=== PATIENT | female | born 1940 | race Caucasian/White ===

== ENCOUNTER 2020-02-05 13:40 | Inpatient (IN) | payer MEDICARE ==
[~2020-02-05] VITALS: Ht 157.5 cm; Wt 58.1 kg
--- NOTE | 2020-02-05 13:40 | NUR ---
PT [id number]+PD, BROUGHT IN FOR A 5150 UNDER GD. C/O DIZZINESS AND FEELING SICK PER PT. PT IS AAOX3, NOT IN RESPIRATORY DISTRESS, HOOKED TO WET PAN MIXER, KEPT RESTED AND COMFORTABLE. WILL CONTINUE TO MONITOR.
--- NOTE | 2020-02-05 14:00 | NUR ---
IV LINE ESTABLISHED BLOOD DRAWN AND SENT TO LAB.
--- NOTE | 2020-02-05 14:05 | NUR ---
AT BEDSIDE FOR EVAL.
--- NOTE | 2020-02-05 14:28 | NUR ---
COVID SPECIMEN OBTAINED AND SENT TO LAB
[2020-02-05] MEDS ORDERED: IV NS 0.9% 1,000 ML BAG IV ONE (14:30)
--- NOTE | 2020-02-05 14:37 | NUR ---
[facility] ADMINISTRATOR AT BEDSIDE FOR XRAY.
[2020-02-05 15:02] LABS: SERUM AMMONIA < 10 umol/L (11-32)
[2020-02-05 15:08] LABS: BASOPHILS # (AUTO) 0.1 /CMM (0.0-0.2); BASOPHILS % (AUTO) 1.4 % (0.0-2.0); EOSINOPHILS % (AUTO) 1.3 % (0.0-6.0); LYMPHOCYTES # (AUTO) 1.2 /CMM (0.8-4.8); LYMPHOCYTES % (AUTO) 12.2 % (20.0-44.0); MEAN CORPUSCULAR HGB CONC 24 g/dl (31.0-36.0); MEAN CORPUSCULAR VOLUME 50 fL (82-100); MONOCYTES # (AUTO) 0.6 /CMM (0.1-1.30); MONOCYTES % (AUTO) 6.2 % (2.0-12.0); NEUTROPHILS # (AUTO) 7.5 /CMM (1.8-8.9); NEUTROPHILS % (AUTO) 78.9 % (43.0-81.0); PLATELET COUNT (AUTO) 586 /CMM (150-450); RED BLOOD CELL COUNT(AUTO) 3.67 MIL/uL (4.0-5.2); WHITE BLOOD COUNT (AUTO) 9.5 K/uL (4.3-11.0)
--- NOTE | 2020-02-05 15:08 | NUR ---
LAB CALLED LACTIC ACID 2.0 DR. MUÑOZ AWARE.
[2020-02-05 15:10] LABS: HEMOGLOBIN 4.5 g/dL (11.5-14.8)
--- NOTE | 2020-02-05 15:10 | NUR ---
LAB CALLED H&H 4.[address] MUÑOZ AWARE.
[2020-02-05 15:11] LABS: ALANINE AMINOTRANSFERASE 15 U/L (12-78); ALBUMIN 3.3 g/dL (3.4-5.0); ALCOHOL, BLOOD 4 mg/dL (0-0); ALKALINE PHOSPHATASE 67 U/L (46-116); ASPARTATE AMINOTRANSFERASE 11 U/L (15-37); BILIRUBIN,DIRECT 0.2 mg/dL (0.0-0.2); BILIRUBIN,TOTAL 0.7 mg/dL (0.2-1.0); CALCIUM, SERUM 9.2 mg/dL (8.5-10.1); CARBON DIOXIDE 24 mmol/L (21-32); CHLORIDE 100 mmol/L (98-107); CREATININE 0.7 mg/dL (0.6-1.3); GLUCOSE 219 mg/dL (74-106); HEMATOCRIT 19 % (33-45); POTASSIUM 3.1 mmol/L (3.5-5.1); SODIUM SERUM 138 mmol/L (136-145); TOTAL PROTEIN, SERUM 7.3 g/dL (6.4-8.2); UREA NITROGEN, BLOOD 15 mg/dL (7-18)
--- NOTE | 2020-02-05 15:12 | NUR ---
PT IS BACK FROM THE CT SCAN.
[2020-02-05 15:15] LABS: ACETAMINOPHEN 0 ug/ml (10-30)
[2020-02-05 15:55] LABS: BILIRUBIN,URINE MODERATE (NEGATIVE); BLOOD, URINE NEGATIVE Ery/uL (NEGATIVE); LEUKOCYTE ESTERASE ,URINE LARGE (NEGATIVE); NITRITE, URINE NEGATIVE (NEGATIVE); PROTEIN,URINE TRACE mg/dl (NEGATIVE); UGLUCOSE NEGATIVE (NEGATIVE)
[2020-02-05 15:59] LABS: COLOR,URINE AMBER (YELLOW)
[2020-02-05 16:01] LABS: THYROID STIMULATING HORMONE 9.255 uIU/mL (0.358-3.74)
[2020-02-05 16:01] LABS: BACTERIA,URINE 1+ /HPF (None Seen); HYALINE CASTS, URINE Few /LPF (None Seen); SQUAMOUS EPITHELIAL CELL,UR Few /HPF (None Seen); WBC,URINE 51-80 /HPF (0-3)
[2020-02-05 16:18] LABS: BAND % (MANUAL) 1 % (0.0-5.0); NEUTROPHILS % (MANUAL) 83 (42-76)
[2020-02-05 16:19] LABS: EOSINOPHILS % (MANUAL) 1 % (0-4); LYMPHOCYTES % (MANUAL) 10 % (16-48); MONOCYTES % (MANUAL) 5 % (0-11.0)
[2020-02-05] MEDS ORDERED: CEFTRIAXONE 1GM BAG (ER ONLY) 1 GM/50 ML PIGGYBACK IV ONE (16:30)
--- NOTE | 2020-02-05 17:47 | NUR ---
CHECKING ON COVID-19 SINCE 1412 LAB SAYS 15-30 MINS.
--- NOTE | 2020-02-05 18:11 | NUR ---
LAB CALLED PT COVID RESULT (-) NEGATIVE.
--- NOTE | 2020-02-05 20:00 | NUR ---
1 unit prbc started @1999; verified with 2rn. see transfusion sheet
--- NOTE | 2020-02-05 20:01 | NUR ---
BLOOD TRANSFUSION STARTED 1999 vs/ 160/75 hr 99 r16 t97.9
--- NOTE | 2020-02-05 20:16 | NUR ---
2nd VS q15 @2015: vs 155/78 hr 87 rr18 t98.2
--- NOTE | 2020-02-05 20:17 | NUR ---
DR. MUÑOZ SPEAKING WITH DR. RINCON REGARDING ADMISSION
--- NOTE | 2020-02-05 20:35 | NUR ---
report given to padmini ceballos for lavelle
[2020-02-05 20:40] VITALS: BP 129/69
--- NOTE | 2020-02-05 20:40 | NUR ---
LAYOUT MANASSEMBLER MOTOR VEHICLE NOTES RECEIVED FROM ER VIA VALERI THIS 79 YO,ALERT,ORIENTED X2-3,FORGETFUL,ALTERED,LIVES ALONE TO HER HOME.SHE WAS BROUGHT BY [employer] TO ER NEIGHBOR DONT SEE HER FOR SEVERAL DAYS,FOUND TO HER PLACE ALTERED,BAREFOOT,LOOKING FOR HER MISSING CAR,NOT ABLE TO RECALL MONTH,[employer] ALSO FOUND ROTTEN FOOD INSIDE [place] AND FLIES.HE WAS EVALUATED BY SMART [employer] CRISIS TEAM AND PUT HER ON 5150 HOLD.APPEARS ALTERED,WITH DIAGNOSIS OF UTI AND ANEMIA WITH H/H OF 4.5/19,PRBC STARTED IN ER AT 1999 BY KOSTAS GARCIA,COMPUTER DOCUMENTATION NOT DONE,CONSENT FOR BLOOD TRANSFUSION SIGNED BY DR Bayron MUÑOZ,PATIENT UNABLE TO SIGN DUE TO MENTAL STATUS. SHE WAS GIVEN ROCEPHIN 1 GM IV IN ER DUE TO UTI.SALINE LOCK RIGHT AC INTACT AND PATENT.SITTER AT BEDSIDE FOR 5150 HOLD.CALL LIGHT IN REACH,NEEDS ANTICIPATED.
[2020-02-05 20:45] VITALS: BP 129/69
[2020-02-05] MEDS: CEFTRIAXONE 1 G in IV D5W 50 ML IV SCH (21:29)
[2020-02-05 21:30] VITALS: BP 135/61
[2020-02-05] MEDS ORDERED: ONDANSETRON HCL/PF 4 MG/2 ML VIAL IVP PRN (21:30)
[2020-02-05] MEDS ORDERED: IV NS 0.9% 1,000 ML IV PRN (21:30)
[2020-02-05] MEDS ORDERED: CLONIDINE HCL 0.1 MG TABLET PO PRN (21:30)
[2020-02-05] MEDS ORDERED: HYDROCODONE/APAP 5/325MG TABLET PO PRN (21:30)
[2020-02-05] MEDS ORDERED: MAGNESIUM HYDROXIDE 30 ML UDC PO PRN (21:30)
[2020-02-05] MEDS ORDERED: MAG HYDROX/AL HYDROX/SIMETH 30 ML UDC PO PRN (21:30)
[2020-02-05] MEDS ORDERED: POTASSIUM CHLORIDE 20 MEQ TAB.PRT.SR PO ONE (21:30)
[2020-02-05] MEDS ORDERED: ACETAMINOPHEN 325 MG TABLET PO PRN (21:30)
[2020-02-05] MEDS ORDERED: Z GUARD REMEDY 2 OZ OINT TP PRN (21:30)
[2020-02-05 22:30] VITALS: BP 131/65
--- NOTE | 2020-02-05 22:30 | NUR ---
LENS BLOCKER NOTES BLOOD TRANSFUSION COMPLETED,NO ADVERSE REACTIONS NOTED,NS FLUSHING IN PROGRESS.
--- NOTE | 2020-02-05 22:45 | NUR ---
PLASMA CENTER NURSE NOTES DR RINCON AT BEDSIDE TO EVALUATE PATIENT.
--- NOTE | 2020-02-05 23:07 | NUR ---
PEPE RODRIGUEZ POTASSIUM LEVEL 0F 3.2,REPLACED WITH K-DUR 80 MG PO ORDERED. Addendum: 02/06/20 at 0130 by VESNA MATA RN K LEVEL 3.1
--- NOTE | 2020-02-05 23:15 | NUR ---
HAND TUBE BENDER NOTES STARTED ON NS AT 75ML/HR RATE ORDERED
[2020-02-06] VITALS (12 sets, daily range): BP systolic 147–160; BP diastolic 50–78
[2020-02-06 06:04] LABS: BASOPHILS # (AUTO) 0.1 /CMM (0.0-0.2); BASOPHILS % (AUTO) 1.6 % (0.0-2.0); EOSINOPHILS % (AUTO) 2.7 % (0.0-6.0); HEMATOCRIT 21 % (33-45); LYMPHOCYTES # (AUTO) 1.2 /CMM (0.8-4.8); LYMPHOCYTES % (AUTO) 18.4 % (20.0-44.0); MEAN CORPUSCULAR HGB CONC 26 g/dl (31.0-36.0); MEAN CORPUSCULAR VOLUME 56 fL (82-100); MONOCYTES # (AUTO) 0.5 /CMM (0.1-1.30); NEUTROPHILS # (AUTO) 4.5 /CMM (1.8-8.9); NEUTROPHILS % (AUTO) 69.3 % (43.0-81.0); PLATELET COUNT (AUTO) 518 /CMM (150-450); RED BLOOD CELL COUNT(AUTO) 3.74 MIL/uL (4.0-5.2); WHITE BLOOD COUNT (AUTO) 6.5 K/uL (4.3-11.0)
[2020-02-06 06:08] LABS: TOTAL IRON BINDING CAPACITY 393 ug/dl (250-450)
[2020-02-06 06:10] LABS: HEMOGLOBIN 5.4 g/dL (11.5-14.8)
[2020-02-06 06:21] LABS: CALCIUM, SERUM 8.3 mg/dL (8.5-10.1); CARBON DIOXIDE 25 mmol/L (21-32); CHLORIDE 107 mmol/L (98-107); CREATININE 0.6 mg/dL (0.6-1.3); GLUCOSE 263 mg/dL (74-106); PHOSPHORUS 1.7 mg/dL (2.5-4.9); SODIUM SERUM 141 mmol/L (136-145); UREA NITROGEN, BLOOD 10 mg/dL (7-18)
[2020-02-06 06:24] LABS: IRON, SERUM 10 ug/dl (50-175)
--- NOTE | 2020-02-06 06:31 | NUR ---
CAN SLIDER NOTES REFUSED IVF THIS TIME,SHE SAID I'VE BEEN DRINKING WATER THRU OUT THE NIGHT.AMBULATES TO THE RESTROOM ASSISTED BY SITTER.STILL VERBALIZING ,SHE WANTS TO GO HOME.CALL LIGHT IN REACH,NEEDS ATTENDED.WILL ENDORSE TO DAY NURSE FOR SUSANNE.
--- NOTE | 2020-02-06 06:55 | NUR ---
DESIGN DRAFTER NOTES MORNING H/H 5.06/24,DR RINCON MADE AWARE,WITH ORDER TO TRANSFUSE ANOTHER 2 UNITS OF PRBC.CHARGE NURSE MADE AWARE,ASHISH RN NURSE ASSIGNED THIS MORNING MADE AWARE.
[2020-02-06] MEDS: PANTOPRAZOLE 40 MG TABLET.DR PO SCH (07:30)
--- NOTE | 2020-02-06 08:00 | NUR ---
RN OPENING NOTE Patient is on 5150 hold for GD; sitter at the bedside. Patient is resting in bed, a/ox2-3 with periods of confusion. Showing no signs of acute distress or SOB, stable on RA. IV line in the RAC#20g is clean and intact flushing well. Patient is able to ambulate with stand-by assist to bathroom. Bed is in lowest position, side rails x2 in upright position, call light is within reach, fall safety and aspiration precautions enforced. Will continue with plan of care.
[2020-02-06 08:34] LABS: BAND % (MANUAL) 1 % (0.0-5.0); EOSINOPHILS % (MANUAL) 5 % (0-4); LYMPHOCYTES % (MANUAL) 15 % (16-48); MONOCYTES % (MANUAL) 5 % (0-11.0); NEUTROPHILS % (MANUAL) 74 (42-76)
[2020-02-06] MEDS ORDERED: K PHOS NEUTRAL 250 MG TABLET PO ONE (14:00)
[2020-02-06] MEDS: SOD FERRIC GLUC 125 MG in IV NS 0.9% 100 ML IV SCH (14:53)
--- NOTE | 2020-02-06 15:17 | NUR ---
EFE spoke with KOSTAS Coleman regarding patient's 5150 status. EFE asked KOSTAS Coleman to sumbit a psych consult order as patient is on a 5150 hold. EFE will also follow-up with GPS to ensure contracts attorney psychiatrist Dr. Temple assesses the patient.
--- NOTE | 2020-02-06 16:30 | NUR ---
SW met with the patient at bedside. Patient is a 79 year-old female. Patient reports living alone and patient reports a neighbor called because they were concerned. Patient presented to [facility] for altered mental status and was placed on a 5150 hold. Patient reports that her sister and [id number] live in [place] and have their own medical issues. Patient reports that this experience has been difficult for her. Patient reports that she has not had a mental health diagnosis. Patient denies SI and HI. Patient denies auditory and visual hallucinations. Patient was calm and cooperative during this assessment. Patient made appropriate direct eye contact.
--- NOTE | 2020-02-06 16:30 | NUR ---
patient is currently on 5150 hold due to grave disability/unable to care for self. She lives alone, was ambulatory prior to admission,has no DME or homehealth reported. Current dc plan is geropsyche placement once medically clear. Addendum: 02/06/20 at 1630 by CRISTHIAN SALMON RN Amended: Links added.
--- NOTE | 2020-02-06 17:50 | NUR ---
RN NOTES Patient is stable, alert and oriented x 2-3. No signs of transfusion reaction. Will continue to monitor.
--- NOTE | 2020-02-06 19:35 | NUR ---
SENIOR PRODUCT DEVELOPMENT ENGINEER NOTES RECEIVED SITTING ON EDGE OF BED,FIRST UNIT OF PRBC COMPLETED,NO BLOOD TRANSFUSION REACTION NOTED.NS FLUSHING IN PROGRESS.WILL CONTINUE TO MONITOR.
--- NOTE | 2020-02-06 19:55 | NUR ---
RN CLOSING NOTE Patient is on 5150 hold for GD; sitter at the bedside. Patient is resting in bed, a/ox2-3 with periods of confusion. Showing no signs of acute distress or SOB, stable on RA. IV line in the LAC#20g is clean and intact flushing well. S/P 1 UNIT PRBC, no s/sx of transfusion reaction, VS remain stable. Ordered 1 more unit of PRBC to be given during the manufacturing electrician per MD order. All patient needs met, all due medications given, patient kept clean and dry throughout shift. Bed is in lowest position, side rails x2 in upright position, call light is within reach, fall safety and aspiration precautions enforced. Will endorse to manufacturing electrician for SUSANNE.
--- NOTE | 2020-02-06 20:01 | NUR ---
FENCE MANUFACTURE SUPERVISOR NOTES SITTER AT BEDSIDE,PATIENT ON 5150 HOLD
[2020-02-06] MEDS: CEFTRIAXONE 1 G in IV D5W 50 ML IV SCH (20:59)
[2020-02-06] MEDS ORDERED: TRAZODONE 50 MG TABLET PO SCH (22:00)
--- NOTE | 2020-02-06 23:26 | NUR ---
CLIENT SUPPORT REPRESENTATIVE NOTES BLOOD TRANSFUSION STARTED WITH PRBC 396ML.
[2020-02-07] VITALS (7 sets, daily range): BP systolic 144–156; BP diastolic 68–84
--- NOTE | 2020-02-07 02:20 | NUR ---
BIOFUELS PLANT MANAGER NOTES BLOOD TRANSFUSION COMPLETED WELL.NO ADVERSE REACTION NOTED,NS FLUSHING DONE
--- NOTE | 2020-02-07 02:30 | NUR ---
FRUIT CANNER NOTES IV SITE LEAKING,ASLINE LOCK REMOVED,PATIENT REFUSED TO HAVE NEW SALINE LOCK.
[2020-02-07 06:28] LABS: BASOPHILS # (AUTO) 0.2 /CMM (0.0-0.2); EOSINOPHILS % (AUTO) 5.4 % (0.0-6.0); HEMATOCRIT 29 % (33-45); HEMOGLOBIN 8.6 g/dL (11.5-14.8); LYMPHOCYTES # (AUTO) 1.8 /CMM (0.8-4.8); LYMPHOCYTES % (AUTO) 21.1 % (20.0-44.0); MEAN CORPUSCULAR HGB CONC 30 g/dl (31.0-36.0); MEAN CORPUSCULAR VOLUME 67 fL (82-100); MONOCYTES # (AUTO) 0.5 /CMM (0.1-1.30); MONOCYTES % (AUTO) 5.8 % (2.0-12.0); NEUTROPHILS # (AUTO) 5.5 /CMM (1.8-8.9); NEUTROPHILS % (AUTO) 65.7 % (43.0-81.0); PLATELET COUNT (AUTO) 519 /CMM (150-450); RED BLOOD CELL COUNT(AUTO) 4.38 MIL/uL (4.0-5.2); WHITE BLOOD COUNT (AUTO) 8.3 K/uL (4.3-11.0)
[2020-02-07 06:29] LABS: CALCIUM, SERUM 8.2 mg/dL (8.5-10.1); CARBON DIOXIDE 24 mmol/L (21-32); CHLORIDE 104 mmol/L (98-107); CREATININE 0.5 mg/dL (0.6-1.3); GLUCOSE 239 mg/dL (74-106); MAGNESIUM 1.8 mg/dL (1.8-2.4); PHOSPHORUS 2.3 mg/dL (2.5-4.9); POTASSIUM 3.3 mmol/L (3.5-5.1); SODIUM SERUM 140 mmol/L (136-145); UREA NITROGEN, BLOOD 6 mg/dL (7-18)
--- NOTE | 2020-02-07 06:31 | NUR ---
SUPERVISOR PLATE PASTING NOTED OFFERED TO PLACE NEW SALINE LOCK BUT REFUSED,SHE WANTS TO GO HOME.D/C PLAN TO GPS WHEN MEDICALLY CLEARED.WILL ENDORSE TO DAY NURSE FOR SUSANNE.
--- NOTE | 2020-02-07 07:30 | NUR ---
HEEL BLACKER OPENING NOTES Pt remains a/ox2-3 with periods of confusion. Showing no signs of acute distress or SOB, stable on RA. IV line in the RAC#20g is clean and intact flushing well. Patient is able to ambulate with stand-by assist to bathroom. Bed is in lowest position, side rails x2 in upright position, call light is within reach, fall safety and aspiration precautions enforced. Sitter at bedside for one on one monitoring. Will continue to monitor.
--- NOTE | 2020-02-07 07:30 | NUR ---
CLARIFICATION OF DOCUMENTATION: PT IV WAS PULLED OUT THIS AM. OFFERED TO INSERT ANOTHER IV LINE, BUT DECLINED.
[2020-02-07] MEDS: PANTOPRAZOLE 40 MG TABLET.DR PO SCH (08:37)
[2020-02-07] MEDS ORDERED: POTASSIUM CHLORIDE 20 MEQ TAB.PRT.SR PO SCH (11:00)
--- NOTE | 2020-02-07 13:35 | NUR ---
Assumed care: Received pt. awake in bed, interacting to the sitter, no distress and no agitation noted. Will continue to monitor for safety.
[2020-02-07] MEDS: SOD FERRIC GLUC 125 MG in IV NS 0.9% 100 ML IV SCH (14:00)
[2020-02-07] MEDS ORDERED: NEUTRA PHOS 1 POWD.PACKET PO ONE (14:00)
--- NOTE | 2020-02-07 14:11 | NUR ---
Pt. refused to IV insertion and refused Ferrlecit IV. Explained on the importance and pt. still refusing.
--- NOTE | 2020-02-07 16:16 | NUR ---
SW met with the patient at bedside. SW followed up regarding patient's discharge plan. Patient reported that she would like to return home and patient reported that her friend Kitty would be able to provide assistance regarding her care at home. Patient provided friend/neighbors contact information . Plan: SW to follow up with patient friend Kitty regarding patient's plan. SW remains available for all needs regarding this patient.
--- NOTE | 2020-02-07 16:18 | NUR ---
This SW spoke with neighbors friend Kitty . Kitty provided background information regarding patient's health history. Per Kitty, patient has been forgetful and Kitty made two separate welfare check. Per Kitty, this final welfare check resulted in a 5150 hold. Kitty reported that the patient's condition at home is unsafe and unsanitary at this time. Kitty reported growing concerns for the care of the patient. Kitty reported that Kitty would be comfortable for the patient to return home if she was provided with home health to ensure patient's health and safety. Kitty would like to be informed regarding patient's discharge plan. Kitty also provided patient's long-term friend Macie's contact information if patient is needed transportation for discharge. will provide this information to Dr. Temple.
--- NOTE | 2020-02-07 16:23 | NUR ---
EFE spoke with Dr. Temple regarding new concerns. Dr. Temple asked this SW to have RN follow up regarding new orders. EFE informed ambulatory service representative Jina for new orders from Dr. Temple. Addendum: 02/07/20 at 1625 by ANNIE WILKS This EFE was informed by Case Management team that the patient is agreeable to placement. EFE informed Dr. Temple regarding this new information. RN to follow-up with Dr. Temple.
--- NOTE | 2020-02-07 17:35 | NUR ---
Jaylen Delgadillo gave an order to D/c to SNF. Dr. Temple made aware of the discharge said ok for discharge to SNF and D/C hold.
--- NOTE | 2020-02-07 17:48 | NUR ---
Jaylen Delgadillo reconciled meds to continue at [facility].
--- NOTE | 2020-02-07 18:03 | NUR ---
Report given Emily over the facility.
--- NOTE | 2020-02-07 20:00 | NUR ---
RN NOTES: RECEIVED REPORT FROM KATHY KENYON. PT HAS NO IV ACCESS, SHE REFUSED IV INSERTION DESPITE PROVIDING EDUCATION.
--- NOTE | 2020-02-07 20:36 | NUR ---
DC NOTES: PT DC TO [facility]. PT A/O X2-3 PERIOD OF CONFUSION. PT RECEIVED WITH NO IV ACCESS SHE IS REFUSING FOR IV REINSERTION, AWARE. PT EDUCATED REGARDING IMPORTANCE OF IV REINSERTION. EDUCATION PROVIDED REGARDING ROCEPHIN ANTIBIOTIC THERAPY FOR UTI. DC PAPER WORKS SIGNED BY PT, REPORTS GIVEN BY DAY KOSTAS CHAVEZ TO KOSTAS [facility]DRIDGE [facility]. VS TAKEN AND RECORDED. INVENTORY OF BELONGINGS COMPLETED, SIGNED BY PT. ARMBAND REMOVED. ALL DC PAPER WORKS HANDED OVER TO EMT. PT LEFT THE UNIT VIA AMBULANCE, MEDICALLY CLEARED FOR DISCHARGE.
[2020-02-08] MEDS ORDERED: LEVOTHYROXINE SODIUM 25 MCG TABLET PO SCH (07:30)
--- NOTE | 2020-02-10 16:28 | NUR ---
EFE was contacted by Stacie WILKS regarding this patient. EFE Arobrittaa following up as patient was placed on a 5150 hold. Stacie wanted information regarding patient's discharge. EFE provided [facility] information for [facility] [address] [place] [address] as patient was discharged on 02/06. EFE remains available for all needs regarding this patient.
== END 2020-02-07 20:38 | DRG 689 ==
LOC: ER 13:53 → TELE 19:28
PROVIDERS: ADMIT Internal Medicine; ATTEND Nurse Practitioner Acute Care
DX: N39.0 Urinary tract infection, site not specified (principal); G93.41 Metabolic encephalopathy; E43 Unspecified severe protein-calorie malnutrition; D50.9 Iron deficiency anemia, unspecified; Z73.6 Limitation of activities due to disability; R73.9 Hyperglycemia, unspecified; R94.6 Abnormal results of thyroid function studies; E03.9 Hypothyroidism, unspecified; F06.30 Mood disorder due to known physiological condition, unspecified
CPT/HCPCS: 36415; 70450-TC; 71045-TC; 80048-TC; 80076-TC; 81001; 82140-TC; 82962-TC; 83540-TC; 83605-TC; 83735-TC; 84100-TC; 84439-TC; 84443-TC; 84484-TC; 85025-TC; 85730-TC; 86850-TC; 87040-TC; 87081-TC; 87086-TC; C9803; G0378; G0480; J0696; J2916; J7030; J7040; J7050; J7060; P9016-BL

== ENCOUNTER 2020-04-29 16:03 | Inpatient (IN) | payer MEDICARE, OTHER ==
[~2020-04-29] VITALS: Ht 165.1 cm; Wt 59.9 kg
[2020-04-29 16:46] LABS: MONOCYTES # (AUTO) 0.7 /CMM (0.1-1.30)
--- NOTE | 2020-04-29 16:51 | NUR ---
BETY FROM SNF TO ER BED 7. AAOX2. NOT IN RESP DISTRESS. BROUGHT IN FOR ABNORMAL LAB. HGB AND HCT REPORTED AT 5.06/25. PT APPEARS PALE. DENIES CP, SOB NOR DIZZYNESS. WAST AT THE BEDSIDE FOR EVAL. ORDERS RECEIVED, NOTED AND CARRIED OUT. IV LINE ESTABLISHED ON R WIRST 20G, BLOOD DRAWN AND GI0VEN TO ELECTRIC RAZOR MECHANIC. PT ON MONITOR.
[2020-04-29 16:54] LABS: BASOPHILS # (AUTO) 0.4 /CMM (0.0-0.2); EOSINOPHILS % (AUTO) 7.1 % (0.0-6.0); HEMATOCRIT 21 % (33-45); LYMPHOCYTES # (AUTO) 1.9 /CMM (0.8-4.8); LYMPHOCYTES % (AUTO) 25.1 % (20.0-44.0); MEAN CORPUSCULAR HGB CONC 27 g/dl (31.0-36.0); MEAN CORPUSCULAR VOLUME 54 fL (82-100); MONOCYTES % (AUTO) 9.2 % (2.0-12.0); NEUTROPHILS % (AUTO) 53.1 % (43.0-81.0); PLATELET COUNT (AUTO) 528 /CMM (150-450); RED BLOOD CELL COUNT(AUTO) 3.81 MIL/uL (4.0-5.2); WHITE BLOOD COUNT (AUTO) 7.5 K/uL (4.3-11.0)
--- NOTE | 2020-04-29 16:58 | NUR ---
ROOM 108 ASSIGNED
[2020-04-29 17:05] LABS: BASOPHILS % (AUTO) 5.5 % (0.0-2.0); HEMOGLOBIN 5.7 g/dL (11.5-14.8)
[2020-04-29 17:19] LABS: ALANINE AMINOTRANSFERASE 13 U/L (12-78); ALBUMIN 3.1 g/dL (3.4-5.0); ALKALINE PHOSPHATASE 73 U/L (46-116); ASPARTATE AMINOTRANSFERASE 8 U/L (15-37); BILIRUBIN,DIRECT 0.1 mg/dL (0.0-0.2); BILIRUBIN,TOTAL 0.3 mg/dL (0.2-1.0); CALCIUM, SERUM 8.5 mg/dL (8.5-10.1); CARBON DIOXIDE 26 mmol/L (21-32); CHLORIDE 99 mmol/L (98-107); CREATININE 0.6 mg/dL (0.6-1.3); POTASSIUM 4.1 mmol/L (3.5-5.1); SODIUM SERUM 135 mmol/L (136-145); TOTAL PROTEIN, SERUM 7.1 g/dL (6.4-8.2); UREA NITROGEN, BLOOD 18 mg/dL (7-18)
[2020-04-29 17:21] LABS: GLUCOSE 398 mg/dL (74-106)
--- NOTE | 2020-04-29 17:21 | NUR ---
LAB CALLED SUGAR IS 398 INFORMED
[2020-04-29 17:37] LABS: EOSINOPHILS % (MANUAL) 2 % (0-4); LYMPHOCYTES % (MANUAL) 25 % (16-48); MONOCYTES % (MANUAL) 9 % (0-11.0); NEUTROPHILS % (MANUAL) 64 (42-76)
[2020-04-29] MEDS ORDERED: MAGNESIUM HYDROXIDE 30 ML UDC PO PRN (18:30)
[2020-04-29] MEDS ORDERED: ONDANSETRON HCL/PF 4 MG/2 ML VIAL IVP PRN (18:30)
[2020-04-29] MEDS ORDERED: MAG HYDROX/AL HYDROX/SIMETH 30 ML UDC PO PRN (18:30)
[2020-04-29] MEDS ORDERED: ZOLPIDEM TARTRATE 5 MG TABLET PO PRN (18:30)
[2020-04-29] MEDS ORDERED: HYDROCODONE/APAP 5/325MG TABLET PO PRN (18:30)
[2020-04-29] MEDS ORDERED: Z GUARD REMEDY 2 OZ OINT TP PRN (18:30)
--- NOTE | 2020-04-29 18:30 | NUR ---
RN NOTE RECEIVED REPORT FROM RN DELANEY OVER PHONE. AWAITING ARRIVAL OF PATIENT FROM ER. IF NOT HERE BY END OF SHIFT WILL ENDORSE REPORT TO LACE PAPER MACHINE OPERATOR RN.
--- NOTE | 2020-04-29 18:32 | NUR ---
REPORT GIVEN TO SERENITY KENYON
--- NOTE | 2020-04-29 18:45 | NUR ---
BLOOD DTRANSFUSION STARTED.
--- NOTE | 2020-04-29 19:17 | NUR ---
PT TRANSPORTED WITH BLOOD TRANSFUSING.
--- NOTE | 2020-04-29 19:17 | NUR ---
PT TRANSPORTED TO UNIT ON GURNEY WITH EMT AND RN AT BEDSIDE W/ ACLS PROTOCOL. NAD NOTED DURING TRANSPORT.
--- NOTE | 2020-04-29 19:50 | NUR ---
RN Note Receive pt. from ER, w/ 1 Unit PRBC infusing.
[2020-04-29] MEDS: PANTOPRAZOLE 40 MG VIAL IV SCH (20:25)
[2020-04-29] MEDS: IV NS 0.9% 1,000 ML IV PRN (20:37)
--- NOTE | 2020-04-29 21:21 | NUR ---
Pt. last hgb 5.7, receiving 1 unit PRBC, self d/c IV access and got out of bed without using call light and standby assist. 80% blood transfusion completed. Shes refusing IV access, refusing care, wants to eat and be left alone tonight. Charge nurse notified, pt. reiterated the same to charge nurse. Provider Maria Del Carmen notified from [employer]. Order is to monitor pt., try an check BP as scheduled, keep bed alarm on, re-educate pt. to not to get up if shes feels dizzy or near syncope and update provider of changes.
--- NOTE | 2020-04-29 21:35 | NUR ---
Protonix and Continuos IV fluid was never administered due to lack of IV access.
[2020-04-29 22:00] VITALS: BP 159/59
--- NOTE | 2020-04-29 23:43 | NUR ---
RN Note Blood transfusion documented was received from ER on paper charting. See Pt. Chart for Transfusion completion documentation.
--- NOTE | 2020-04-29 23:45 | NUR ---
RN Note Pt. continues to get out of bed without using call light. Refuses to remain NPO, went to sink and drink water. Continuos to be uncooperative. Charge nurse notified, Call light within reach and bed alarm active.
--- NOTE | 2020-04-29 23:55 | NUR ---
CLINICAL STATISTICAL PROGRAMMER NOTES, ATTEMPTED TO EDUCATE PATIENT REGARDING THE IMPORTANCE OF START IV AND CONTINUE WITH MEDICAL CARE, AND SHE REPLIED "I'M TIRED OF BEING USED!" " I JUST CAN HANDLE THIS ANYMORE, LET ME SLEEP, I JUST WANT TO REST!!" ENCOURAGED PATIENT TO START IV, TO CONTINUE WITH IV FLUIDS AND POSSIBLE BLOOD TRANSFUSION, REMINDED THE PATIENT THAT SHE HAS CRITICAL HEMOGLOBIN, STILL REFUSED, ANGI CHAUHAN AWARE.
--- NOTE | 2020-04-29 23:58 | NUR ---
Rn Note Pt. refusing cardiac monitoring, states "its too sticky, I do not want it on me and that's final." Educated pt. on the importances of medical devices nad care that she is refusing. Pt. refuse pictures of her wounds to be taken.
[2020-04-30] VITALS: BP 128/54
--- NOTE | 2020-04-30 01:00 | NUR ---
INCOME TAX CONSULTANT NOTES, PATIENT NOT COMPLIANT WITH CARE, REFUSING TELE MONITOR AND WANTED TO EAT, INFORMED ED WHITLEY PATTERNMAKER METAL BENCH ON CALLED AND SHE REPLIED WITH ORDER TO CONTINUE NPO, AND FOLLOW UP TOMORROW WITH MD.
--- NOTE | 2020-04-30 01:00 | NUR ---
CIRCLE EDGER NOTES, INFORMED ANGI THAT PATIENT KEEP GETTIG UP FROM BED, REFUSING CARE, NON COMPLIANT WITH MD ORDERS, AND KEEP DRINKING WATER FROM SINK FAUCET, ANGI REPLIED WITH ORDER TO KEEP PATIENT IN BED SINCE SHES IS ANEMIC WITH CRITICAL AND PROVIDE 1:1 SITTER, NOTED AND CARRIED OUT.
[2020-04-30 04:00] VITALS: BP 145/77
--- NOTE | 2020-04-30 06:24 | NUR ---
RN Note pt. refused am labs.
--- NOTE | 2020-04-30 07:10 | NUR ---
RN OPENING NOTED RECEIVED PATIENT RESTING IN BED. IT WAS INFORMED PATIENT HAS BEEN NONCOMPLIANT WITH CARE AND HAS BEEN REFUSING IV'S. NO IV ACCESS IN PATIENT. PATIENT IS NPO STATUS. SAFETY PRECAUTIONS IMPLEMENTED, BED LOCKED IN LOWEST POSITION, SIDE RAILS UP X2, CALL LIGHT WITHIN REACH. WILL CONTINUE TO MONITOR AND PROVIDE CARE THROUGHOUT SHIFT.
[2020-04-30 08:00] VITALS: BP 139/61
[2020-04-30] MEDS ORDERED: CRAN3875 PO (08:12)
[2020-04-30] MEDS ORDERED: LEVO25TA7 PO (08:12)
[2020-04-30] MEDS ORDERED: ONDA4TAB11 PO (08:12)
[2020-04-30] MEDS ORDERED: MAG355OR18 PO (08:12)
[2020-04-30] MEDS ORDERED: DOCU-141 PO (08:12)
[2020-04-30] MEDS ORDERED: ACET325T53 PO (08:12)
[2020-04-30] MEDS ORDERED: CRAN425C6 PO (08:12)
[2020-04-30] MEDS ORDERED: HYDR-3973 PO (08:12)
[2020-04-30] MEDS ORDERED: PANT40TA49 PO (08:12)
[2020-04-30] MEDS ORDERED: CLON0.1T PO (08:12)
[2020-04-30 11:22] LABS: BASOPHILS # (AUTO) 0.2 /CMM (0.0-0.2); BASOPHILS % (AUTO) 3.1 % (0.0-2.0); EOSINOPHILS % (AUTO) 7.7 % (0.0-6.0); HEMATOCRIT 25 % (33-45); HEMOGLOBIN 7.3 g/dL (11.5-14.8); LYMPHOCYTES # (AUTO) 1.2 /CMM (0.8-4.8); LYMPHOCYTES % (AUTO) 19.9 % (20.0-44.0); MEAN CORPUSCULAR HGB CONC 29 g/dl (31.0-36.0); MEAN CORPUSCULAR VOLUME 60 fL (82-100); MONOCYTES # (AUTO) 0.5 /CMM (0.1-1.30); NEUTROPHILS # (AUTO) 3.6 /CMM (1.8-8.9); NEUTROPHILS % (AUTO) 61.3 % (43.0-81.0); PLATELET COUNT (AUTO) 467 /CMM (150-450); RED BLOOD CELL COUNT(AUTO) 4.13 MIL/uL (4.0-5.2); WHITE BLOOD COUNT (AUTO) 5.8 K/uL (4.3-11.0)
[2020-04-30 11:46] LABS: ALANINE AMINOTRANSFERASE 10 U/L (12-78); ALBUMIN 2.9 g/dL (3.4-5.0); ALKALINE PHOSPHATASE 69 U/L (46-116); ASPARTATE AMINOTRANSFERASE 10 U/L (15-37); BILIRUBIN,TOTAL 0.8 mg/dL (0.2-1.0); CALCIUM, SERUM 8.6 mg/dL (8.5-10.1); CARBON DIOXIDE 27 mmol/L (21-32); CHLORIDE 99 mmol/L (98-107); CREATININE 0.5 mg/dL (0.6-1.3); GLUCOSE 300 mg/dL (74-106); MAGNESIUM 1.6 mg/dL (1.8-2.4); PHOSPHORUS 3.9 mg/dL (2.5-4.9); POTASSIUM 3.5 mmol/L (3.5-5.1); SODIUM SERUM 137 mmol/L (136-145); TOTAL PROTEIN, SERUM 6.7 g/dL (6.4-8.2); UREA NITROGEN, BLOOD 11 mg/dL (7-18)
[2020-04-30 12:00] VITALS: BP 150/72
[2020-04-30 16:00] VITALS: BP 156/86
[2020-04-30] MEDS: PANTOPRAZOLE 40 MG VIAL IV SCH (16:03)
--- NOTE | 2020-04-30 19:31 | NUR ---
RN CLOSING NOTE PATIENT RESTING IN BED. PATIENT MIDLINE RIGHT UPPER ARM INTACT AND FLUSHING WELL. PATIENT NOW ON SOFT DIET PER MD ORDERS. SAFETY PRECAUTIONS IMPLEMENTED, BED LOCKED IN LOWEST POSITION, SIDE RAILS UP X2, CALL LIGHT WITHIN REACH. WILL ENDORSE CARE TO UPCOMING SHIFT.
[2020-04-30 20:00] VITALS: BP 158/57
--- NOTE | 2020-04-30 20:00 | NUR ---
RN OPENING NOTED RECEIVED PATIENT IN BED. A/OX3 AMBULATORY.PER ENDORSEMENT PTS IS NONCOMPLIANT WITH CARE AND TELE MONITOR . WITH RIGHT UPPER ARM MIDLINE GAUGE#18 INTACT AND PATENT . PATIENT IS ON SOFT DIET, SAFETY PRECAUTIONS IMPLEMENTED, BED LOCKED IN LOWEST POSITION, SIDE RAILS UP X2, CALL LIGHT WITHIN REACH. WILL CONTINUE TO MONITOR PTS.
--- NOTE | 2020-04-30 21:00 | NUR ---
television tube inspector notes Received a call from Dr Sales wanted to talk to pts ,told dr sales no behabior at this time in the bed cofortable .Dr sales spoke to the pts with nno at this time.
[2020-05-01] VITALS: BP 134/65
--- NOTE | 2020-05-01 | NUR ---
television camera operator notes Pts is npo status as ordered for egd today with Dr krause scheduled at 10am .Pts responsible green party unable to reach will follow up in am .will endorse to rn day shift to follow up ,preop checklist started .will endorse accordingly , pts maintained npo status.
--- NOTE | 2020-05-01 | NUR ---
manager telemarketing notes Pts is non compliant start explaining to her about the procedure for egd , pts keep on i dont want do it , consent is not sign no family to contact.left message with asad .
[2020-05-01 04:00] VITALS: BP 126/65
[2020-05-01 06:17] LABS: BASOPHILS # (AUTO) 0.2 /CMM (0.0-0.2); BASOPHILS % (AUTO) 2.6 % (0.0-2.0); HEMATOCRIT 25 % (33-45); HEMOGLOBIN 7.3 g/dL (11.5-14.8); LYMPHOCYTES # (AUTO) 2.1 /CMM (0.8-4.8); LYMPHOCYTES % (AUTO) 27.8 % (20.0-44.0); MEAN CORPUSCULAR HGB CONC 29 g/dl (31.0-36.0); MEAN CORPUSCULAR VOLUME 61 fL (82-100); MONOCYTES # (AUTO) 0.7 /CMM (0.1-1.30); MONOCYTES % (AUTO) 8.7 % (2.0-12.0); NEUTROPHILS % (AUTO) 52.9 % (43.0-81.0); PLATELET COUNT (AUTO) 483 /CMM (150-450); RED BLOOD CELL COUNT(AUTO) 4.16 MIL/uL (4.0-5.2); WHITE BLOOD COUNT (AUTO) 7.6 K/uL (4.3-11.0)
--- NOTE | 2020-05-01 07:15 | NUR ---
telecom coordinator notes endorsed to rn day shift to follow up consent. pts at this time is refusing for the procedure.
--- NOTE | 2020-05-01 07:20 | NUR ---
RN OPENING NOTE RECEIVED PATIENT RESTING IN BED. PATIENT ON ROOM AIR WITH NO COMPLAINTS OF SOB OR RESPIRATORY DISTRESS. PATIENT MIDLINE RIGHT UPPER ARM INTACT AND FLUSHING WELL. PATIENT NPO FOR POSSIBLE EDG TODAY. CONSENT STILL NEEDS TO BE OBTAINED. SAFETY PRECAUTIONS IMPLEMENTED, BED LOCKED IN LOWEST POSITION, SIDE RAILS UP X2, CALL LIGHT WITHIN REACH. WILL CONTINUE TO MONITOR PATIENT AND PROVIDE CARE THROUGHOUT SHIFT.
[2020-05-01 08:00] VITALS: BP 174/69
[2020-05-01] MEDS: PANTOPRAZOLE 40 MG VIAL IV SCH (09:56)
[2020-05-01 12:00] VITALS: BP 142/64
[2020-05-01] MEDS ORDERED: SOD FERRIC GLUC 125 MG in IV NS 0.9% 100 ML IV ONE (12:30)
[2020-05-01] MEDS ORDERED: SOD FERRIC GLUC 125 MG in IV NS 0.9% 100 ML IV SCH (14:00)
[2020-05-01 16:00] VITALS: BP 151/68
--- NOTE | 2020-05-01 18:57 | NUR ---
RN CLOSING NOTE PATIENT RESTING IN BED. PATIENT ON ROOM AIR WITH NO COMPLAINTS OF SOB OR RESPIRATORY DISTRESS. PATIENT MIDLINE RIGHT UPPER ARM INTACT AND FLUSHING WELL. PATIENT PLACED BACK ON SOFT DIET. EMERGENCY CONTACTS ARE [facility] MENT[facility]INICIANS THAT ARE NOT ABLE TO CONSENT FOR EDG. IT WAS INFORMED THAT THEY JUST FOLLOW PATIENT FOR MENTAL HEALTH SERVICES. PATIENT ALSO REFUSED EDG. MD AWARE. SAFETY PRECAUTIONS IMPLEMENTED, BED LOCKED IN LOWEST POSITION, SIDE RAILS UP X2, CALL LIGHT WITHIN REACH. WILL ENDORSE CARE TO UPCOMING SHIFT.
[2020-05-01 20:00] VITALS: BP 150/57
--- NOTE | 2020-05-01 20:00 | NUR ---
RN OPENING NOTED RECEIVED PATIENT IN BED. A/OX3 AMBULATORY.PTS IS NONCOMPLIANT WITH CARE . WITH RIGHT UPPER ARM MIDLINE GAUGE#18 INTACT AND PATENT PTS REFUSED IV FLUIDS BUT ABLE TO DRINK WATER WELL,. PATIENT IS ON SOFT DIET, SAFETY PRECAUTIONS IMPLEMENTED, BED LOCKED IN LOWEST POSITION, SIDE RAILS UP X2, CALL LIGHT WITHIN REACH. WILL CONTINUE TO MONITOR PTS.V/S STABLE AFEBRILE.PTS ON R/A NO SOB NO DISTRESS NOTED .
[2020-05-02 04:00] VITALS: BP 135/76
--- NOTE | 2020-05-02 06:28 | NUR ---
ms rn notes endorsed to rn day shift for continuity of care , Pts in bed stable v/s and comfortable in bed no c/o of pain .no sob no distress noted.
--- NOTE | 2020-05-02 07:30 | NUR ---
RN OPENING NOTES RECEIVED PT IN BED. A/O X2. ON ROOM AIR SATURATING @96%. NO SOB OR ANY RESPIRATORY DISTRESS. IV ACCESS AT SHERLEY MIDLINE INTACT, PATENT AND FLUSHED. NO PAIN REPORTED. SAFETY MEASURES IMPLEMENTED. CALL LIGHT WITHIN REACH. BED LOCKED AND IN LOWEST POSITION WITH SIDE RAILS UP X2. WILL CONTINUE TO MONITOR.
[2020-05-02 08:21] LABS: BASOPHILS # (AUTO) 0.2 /CMM (0.0-0.2); BASOPHILS % (AUTO) 2.3 % (0.0-2.0); EOSINOPHILS % (AUTO) 7.7 % (0.0-6.0); HEMATOCRIT 24 % (33-45); HEMOGLOBIN 7.2 g/dL (11.5-14.8); LYMPHOCYTES # (AUTO) 2.2 /CMM (0.8-4.8); MEAN CORPUSCULAR HGB CONC 30 g/dl (31.0-36.0); MEAN CORPUSCULAR VOLUME 59 fL (82-100); MONOCYTES # (AUTO) 0.7 /CMM (0.1-1.30); MONOCYTES % (AUTO) 8.5 % (2.0-12.0); NEUTROPHILS # (AUTO) 4.2 /CMM (1.8-8.9); NEUTROPHILS % (AUTO) 53.5 % (43.0-81.0); PLATELET COUNT (AUTO) 466 /CMM (150-450); RED BLOOD CELL COUNT(AUTO) 4.03 MIL/uL (4.0-5.2); WHITE BLOOD COUNT (AUTO) 7.9 K/uL (4.3-11.0)
[2020-05-02] MEDS: PANTOPRAZOLE 40 MG VIAL IV SCH (08:26)
[2020-05-02 12:00] VITALS: BP 116/62
[2020-05-02] MEDS ORDERED: Magnesium 1 GM/2 ML VIAL IV ONE (12:00)
[2020-05-02] MEDS ORDERED: MGSO4/D5W 100 ML IV SCH (12:30)
[2020-05-02] MEDS: SOD FERRIC GLUC 125 MG in IV NS 0.9% 100 ML IV SCH (14:00)
[2020-05-02 16:00] VITALS: BP 152/70
--- NOTE | 2020-05-02 17:01 | NUR ---
RN NOTES REFUSED FERRLECIT DESPITE EDUCATION X3.
--- NOTE | 2020-05-02 19:17 | NUR ---
RN CLOSING NOTES PT RESTING IN BED. A/O X2. ON ROOM AIR SATURATING @98%. NO SOB OR ANY RESPIRATORY DISTRESS. IV ACCESS AT SHERLEY MIDLINE INTACT, PATENT AND FLUSHED. NO PAIN REPORTED. NO SIGNIFICANT CHANGES THROUGHOUT THE SHIFT. SAFETY MEASURES IMPLEMENTED. CALL LIGHT WITHIN REACH. BED LOCKED AND IN LOWEST POSITION WITH SIDE RAILS UP X2. WILL ENDORSE TO NIGHT NURSE FOR SUSANNE.
--- NOTE | 2020-05-02 19:30 | NUR ---
PT RECEIVED IN BED. AOX3, JOHANSEN, RESPIRATIONS EVEN AND UNLABORED. DENIES PAIN AND DISCOMFORT. INFORMED OF NPO AFTER MIDNIGHT STATUS AND AM PROCEDURE. PT VERBALIZED UNDERSTANDING. ENCOURAGED TO CALL FOR ASSIST. CALL LIGHT WITHIN REACH.
[2020-05-02 20:00] VITALS: BP 149/54
[2020-05-03] VITALS (8 sets, daily range): BP systolic 114–162; BP diastolic 49–80
--- NOTE | 2020-05-03 05:06 | NUR ---
PT AOX2 AND CONFUSED AT TIMES. JOHANSEN AND AMBULATES TO THE BATHROOM.
--- NOTE | 2020-05-03 05:08 | NUR ---
PT AOX2-3,CONFUSED AT TIMES JOHANSEN, RESPIRATIONS EVEN AND UNLABORED. AMBULATES TO THE BATHROOM WITH A STEADY GAIT. STATES THAT " I HAVEN'T SEEN A DOCTOR SINCE I GOT HERE" WHEN ATTEMPTED TO INFORM AND ANSWER QUESTIONS REGARDING THE EGD THIS AM. REMAINED NPO AFTER MIDNIGHT. NO S/S OF BLEEDING NOTED. SAFTEY MAINTAINED. BED IN LOWEST LEVEL. ENCOURAGED TO CALL FOR ASSIST. CVALL Addendum: 05/03/20 at 0527 by TODD SYED RN CORRECTION: PT AOX2-3,CONFUSED AT TIMES JOHANSEN, RESPIRATIONS EVEN AND UNLABORED. AMBULATES TO THE BATHROOM WITH A STEADY GAIT. STATES THAT " I HAVEN'T SEEN A DOCTOR SINCE I GOT HERE" WHEN ATTEMPTED TO INFORM AND ANSWER QUESTIONS REGARDING THE EGD THIS AM. REMAINED NPO AFTER MIDNIGHT. NO S/S OF BLEEDING NOTED. SAFETY MAINTAINED. BED IN LOWEST LEVEL. ENCOURAGED TO CALL FOR ASSIST.
[2020-05-03 06:57] LABS: BASOPHILS # (AUTO) 0.1 /CMM (0.0-0.2); BASOPHILS % (AUTO) 2.2 % (0.0-2.0); EOSINOPHILS % (AUTO) 7.9 % (0.0-6.0); HEMATOCRIT 25 % (33-45); HEMOGLOBIN 7.2 g/dL (11.5-14.8); LYMPHOCYTES % (AUTO) 28.8 % (20.0-44.0); MEAN CORPUSCULAR HGB CONC 29 g/dl (31.0-36.0); MEAN CORPUSCULAR VOLUME 61 fL (82-100); MONOCYTES # (AUTO) 0.7 /CMM (0.1-1.30); MONOCYTES % (AUTO) 9.5 % (2.0-12.0); NEUTROPHILS # (AUTO) 3.5 /CMM (1.8-8.9); NEUTROPHILS % (AUTO) 51.6 % (43.0-81.0); PLATELET COUNT (AUTO) 440 /CMM (150-450); RED BLOOD CELL COUNT(AUTO) 4.13 MIL/uL (4.0-5.2); WHITE BLOOD COUNT (AUTO) 6.9 K/uL (4.3-11.0)
--- NOTE | 2020-05-03 07:30 | NUR ---
MED SURG OPENING NOTES Patient received in bed in good stable condition, NPO due to EGD scheduled. Patient noted with right upper arm midline with no s/s of skin infection. Bed is in lowest and locked position. Call light with in reach.
[2020-05-03] MEDS: PANTOPRAZOLE 40 MG VIAL IV SCH (08:52)
[2020-05-03 10:40] LABS: EOSINOPHILS % (MANUAL) 8 % (0-4); LYMPHOCYTES % (MANUAL) 30 % (16-48); MONOCYTES % (MANUAL) 5 % (0-11.0); NEUTROPHILS % (MANUAL) 57 (42-76)
[2020-05-03] MEDS ORDERED: ANESTHESIA TRAY IN PYXIS 1 EA TRAY MC ONE (14:30)
[2020-05-03] MEDS ORDERED: FENTANYL PF 100MCG/2ML AMPUL ONE (14:35)
[2020-05-03] MEDS: SOD FERRIC GLUC 125 MG in IV NS 0.9% 100 ML IV SCH (16:43)
--- NOTE | 2020-05-03 19:15 | NUR ---
PT RECEIVED IN BED AND APPEARS TO BE SLEEPING. RESPIRATIONS EVEN AND UNLABORED WITH NO S/S OF RESPIRATORY DISTRESS. CALL LIGHT WITHIN REACH AND BED IN LOWEST POSITION. WILL CONTINUE TO MONITOR.
--- NOTE | 2020-05-03 19:38 | NUR ---
MED SURG OPENING NOTES patient alert and oriented. Breathing even and unlabored.On room air with 02 sat 98%. Patient monitored for being post EGD. No c/o pain verbalized. Patient noted with right upper arm midline with no s/s of skin infection. Bed is in lowest and locked position. Call light with in reach.Endorsed to next shift for follow up. Addendum: 05/03/20 at 1939 by CARLOS MAKI RN KOSTAS CLOSING NOTES
[2020-05-04 04:00] VITALS: BP 128/53
--- NOTE | 2020-05-04 05:12 | NUR ---
PT AOX2-3 AND CONFUSED AT TIMES. PT IS COOPERATIVE ALLOWING IVF TO BE GIVEN AFTER ENCOURAGEMENT. SHERLEY MIDLINE IN INTACT AND INFUSING NS @75 ML/HR NO S/S OF BLEEDING. S/P EGD YESTERDAY.AMBULATES TO THE BATHROOM WITH A STEADY GAIT. RESPIRATIONS EVEN AND UNLABORED. NO S/S OF SOB OR DYSPNEA. DENIES PAIN AND DISCOMFORT. CALL LIGHT WITHIN REACH, ENCOURAGED TO CALL FOR ASSIST AND BED IN LOWERS POSITION.
--- NOTE | 2020-05-04 07:55 | NUR ---
RN OPENING NOTE PATIENT IS IN BED WITH HOB AT SEMI FOWLERS POSITION. PATIENT IS ON ROOM AIR WITH NO SIGNS OF LABORED BREATHING. PATIENT IS AOX3. SKIN IS INTACT. RHAND #18 IS PATENT, INTACT, AND HAS NO SIGNS OF INFILTRATION. BED IS LOCKED IN THE LOWEST POSITION, 3 GUARD RAILS RAISED, CALL NEVES WITHIN REACH, AND ALL HOSPITAL SAFETY PRECAUTIONS ARE BEING FOLLOWED. WILL CONTINUE TO MONITOR THROUGHOUT SHIFT.
[2020-05-04 08:00] VITALS: BP 119/51
[2020-05-04] MEDS: IV NS 0.9% 1,000 ML IV PRN ×2 (08:30)
[2020-05-04] MEDS: PANTOPRAZOLE 40 MG VIAL IV SCH (08:30)
[2020-05-04] MEDS: FAMOTIDINE (20 MG) 20 MG TABLET PO SCH ×2 (13:42→21:36)
[2020-05-04] MEDS: SOD FERRIC GLUC 125 MG in IV NS 0.9% 100 ML IV SCH (14:20)
[2020-05-04] MEDS: ACETAMINOPHEN 325 MG TABLET PO PRN ×2 (15:28→21:35)
--- NOTE | 2020-05-04 15:30 | NUR ---
LOSS PREVENTION/SAFETY DISTRICT MANAGER NOTE PATIENT HAS TEMP OF 100.4. ADMINISTERED 650 MG TYLENOL PO. WILL CONTINUE TO MONITOR.
[2020-05-04 16:00] VITALS: BP 159/60
--- NOTE | 2020-05-04 17:50 | NUR ---
FACILITIES MAINTENANCE ASSISTANT NOTE NOTIFIED PIZZA COOK AUBREY YATES OF TEMP OF 100.6, CHILLS, BP 110/42, HR IN 140s. ORDERED CBC, UA, BLOOD CULTURE, AND LACTIC ACID.
[2020-05-04 19:14] LABS: HEMOGLOBIN 7.9 g/dL (11.5-14.8)
--- NOTE | 2020-05-04 19:20 | NUR ---
RN NOTE RECEIVED PT IN BED, CONFUSED WITH VOMITUS ON GOWN AND BED. FEBRILE 102.7. COOLING MEASURES APPLIED. ON IVF NS RUNNING AT 75ML/HR. NO DISTRESS NOTED. DRIVE AWAY DRIVER ANGI MADE AWARE OF VOMITING EPISODE AND FEVER. NO SIGNIFICANT CHANGES ON LAB. WBC 6.9 AND LACTIC ACID 1.7. NO ORDER MADE AT THIS TIME, PER DRIVE AWAY DRIVER CONTINUE TO MONITOR.
[2020-05-04 19:21] LABS: BASOPHILS # (AUTO) 0.1 /CMM (0.0-0.2); BASOPHILS % (AUTO) 0.9 % (0.0-2.0); EOSINOPHILS % (AUTO) 0.9 % (0.0-6.0); HEMATOCRIT 27 % (33-45); LYMPHOCYTES # (AUTO) 0.2 /CMM (0.8-4.8); LYMPHOCYTES % (AUTO) 3.3 % (20.0-44.0); MEAN CORPUSCULAR HGB CONC 29 g/dl (31.0-36.0); MEAN CORPUSCULAR VOLUME 64 fL (82-100); MONOCYTES # (AUTO) 0.1 /CMM (0.1-1.30); MONOCYTES % (AUTO) 1.4 % (2.0-12.0); NEUTROPHILS # (AUTO) 6.4 /CMM (1.8-8.9); NEUTROPHILS % (AUTO) 93.5 % (43.0-81.0); PLATELET COUNT (AUTO) 376 /CMM (150-450); RED BLOOD CELL COUNT(AUTO) 4.17 MIL/uL (4.0-5.2); WHITE BLOOD COUNT (AUTO) 6.9 K/uL (4.3-11.0)
--- NOTE | 2020-05-04 19:21 | NUR ---
RN CLOSING NOTE PATIENT IS IN BED WITH HOB AT SEMI FOWLERS POSITION. PATIENT IS ON ROOM AIR WITH NO SIGNS OF LABORED BREATHING. PATIENT IS AOX2. SKIN IS INTACT. RHAND #18 IS PATENT, INTACT, AND HAS NO SIGNS OF INFILTRATION. BED IS LOCKED IN THE LOWEST POSITION, 3 GUARD RAILS RAISED, CALL NEVES WITHIN REACH, AND ALL HOSPITAL SAFETY PRECAUTIONS ARE BEING FOLLOWED. WILL ENDORSE TO PROFESSIONAL NURSING TUTOR RN. Addendum: 05/04/20 at 1939 by SERENITY CAMACHO RN *PATIENT IS AOX1
[2020-05-04 20:00] VITALS: BP 108/83
[2020-05-04 20:57] LABS: BAND % (MANUAL) 2 % (0.0-5.0); LYMPHOCYTES % (MANUAL) 5 % (16-48); MONOCYTES % (MANUAL) 2 % (0-11.0); NEUTROPHILS % (MANUAL) 91 (42-76)
--- NOTE | 2020-05-05 | NUR ---
RN NOTE BODY TEMP WENT DOWN TO 99.7
[2020-05-05] MEDS: IV NS 0.9% 1,000 ML IV PRN ×3 (00:01→16:13)
[2020-05-05 04:00] VITALS: BP 100/66
[2020-05-05 06:29] LABS: BASOPHILS # (AUTO) 0.1 /CMM (0.0-0.2); BASOPHILS % (AUTO) 0.8 % (0.0-2.0); HEMATOCRIT 22 % (33-45); LYMPHOCYTES # (AUTO) 0.3 /CMM (0.8-4.8); LYMPHOCYTES % (AUTO) 2.7 % (20.0-44.0); MEAN CORPUSCULAR HGB CONC 31 g/dl (31.0-36.0); MEAN CORPUSCULAR VOLUME 63 fL (82-100); MONOCYTES # (AUTO) 0.7 /CMM (0.1-1.30); MONOCYTES % (AUTO) 5.9 % (2.0-12.0); NEUTROPHILS # (AUTO) 10.2 /CMM (1.8-8.9); NEUTROPHILS % (AUTO) 90.6 % (43.0-81.0); PLATELET COUNT (AUTO) 272 /CMM (150-450); RED BLOOD CELL COUNT(AUTO) 3.56 MIL/uL (4.0-5.2); WHITE BLOOD COUNT (AUTO) 11.3 K/uL (4.3-11.0)
[2020-05-05 06:41] LABS: HEMOGLOBIN 6.8 g/dL (11.5-14.8)
--- NOTE | 2020-05-05 06:50 | NUR ---
RN NOTE RECEIVED CALL FROM LAB. PT HGB 6.8 HCT 22. PAGED GUEST SERVICES DIRECTOR ANGI. AWAITING FOR CALL BACK.
--- NOTE | 2020-05-05 07:00 | NUR ---
RN OPENING NOTE PT IN BED SEMI FOWLERS, A/Ox2, BREATHING ROOM AIR SPO2 95% WITH NO SIGNS OF SOB OR LABORED BREATHING. SKIN IS INTACT. SHERLEY MIDLINE RUNNING NS @ 75ML/HR, FLUSHED, PATENT, INTACT, WITH NO SIGNS OF INFECTION/INFILTRATION. PT H/H 6.10/25 (NO SIGNS OF ACTIVE BLEED NOTED), INFORMED CARDIOLOGY NURSE PRACTITIONER ANUSHA SAAVEDRA, AWAITING HIS ORDER, WILL F/U. ALL PT SAFETY PRECAUTIONS IN PLACE. WILL CONT TO MONITOR
--- NOTE | 2020-05-05 07:00 | NUR ---
RN NOTE PT REMAINS IN BED. NO ACUTE CHANGES NOTED. AFEBRILE AT THIS TIME. CONTINUE ON IVF OF NS. NO SIGNS OF INFILTRATION NOTED. NO NAUSEA AND VOMITING THE REST OF THE SHIFT. ALL SAFETY MEASURES MAINTAINED. ON FREQUENT VISUAL CHECKS. PT REFUSED TO GIVE URINE SAMPLE. TRIED MULTIPLE TIMES AND EXPLAINED TO PT. CRITICAL HBG ENDORSED TO NEXT SHIFT NURSE, NO RESPOND FROM MANAGING COGNITIVE ENGINEER YET. NO S/SX OF BLEEDING NOTED.
[2020-05-05 08:00] VITALS: BP 114/52
--- NOTE | 2020-05-05 08:30 | NUR ---
RN NOTE TEMP OF 99.4. COOLING MEASURES IN PLACE. WILL REASSESS SHORTLY
--- NOTE | 2020-05-05 09:30 | NUR ---
RN NOTE TEMP OF 98.9
[2020-05-05] MEDS: FAMOTIDINE (20 MG) 20 MG TABLET PO SCH ×2 (09:33→20:51)
[2020-05-05] MEDS: PANTOPRAZOLE 40 MG VIAL IV SCH (09:33)
[2020-05-05] MEDS ORDERED: CEFTRIAXONE 1 G in IV D5W 50 ML IV SCH (14:00)
[2020-05-05] MEDS: SOD FERRIC GLUC 125 MG in IV NS 0.9% 100 ML IV SCH (14:44)
[2020-05-05 16:00] VITALS: BP 151/79
[2020-05-05] MEDS: ACETAMINOPHEN 325 MG TABLET PO PRN (16:13)
[2020-05-05] MEDS ORDERED: ACETAMINOPHEN 650 MG/SUPP.RECT RC PRN (16:30)
--- NOTE | 2020-05-05 17:00 | NUR ---
RN NOTE PT TEMP OF 103 F, ADMINISTERED TYLENOL 650 RECTALLY AND COOLING MEASURES REINSTATED. WILL REASSESS SHORTLY
--- NOTE | 2020-05-05 18:00 | NUR ---
RN NOTE PT TEMP AT 102 NOW. COOLING MEASURES STILL IN PLACE
--- NOTE | 2020-05-05 18:45 | NUR ---
RN NOTE PER SPANISH TEACHER, CORWIN PALOMO, HOLD PRBC TRANSFUSION FOR NOW, NEED TO CONTROL FEVER FIRST Addendum: 05/05/20 at 1905 by ELEAZAR REIS RN PER CORWIN PALOMO, WENDY COOLING MEASURES FOR PT
--- NOTE | 2020-05-05 19:00 | NUR ---
RN CLOSING NOTE PT STILL HAS FEVER OF 101.0 F. COOLING MEASURES IN PLACE. HOLD PRBC TRANSFUSION UNTIL FEVER IS CONTROLLED. URINALYSIS AND FECAL OCCULT STOOL SAMPLE NEEDED, STRAIGHT CATH ORDER PLACED. PT ON RA, NO SIGNS OF RESP DISTRESS, SPO2 94% AND ABOVE THROUGHOUT SHIFT. ALL PT SAFETY PRECAUTIONS IN PLACE. WILL ENDORSE SUSANNE TO ONCOMING RN
[2020-05-05 20:00] VITALS: BP 102/40
--- NOTE | 2020-05-05 20:00 | NUR ---
RN OPENING NOTE, RECEIVED PATIENT IN BED, ASLEEP BUT AROUSES TO VERBAL STIMULI, ABLE TO IDENTIFY SELF AND DATE, FEBRILE WITH 101.0 F AT THIS TIME, COOLING MEASURES REPLACED, PER PRIOR NURSE HOLD BLOOD UNTIL AFEBRILE, ORDER GIVEN BY CORWIN PALOMO SALES REPRESENTATIVE METALS, NOTED WITH 89% O2, AND PLACED HER ON 2LPM VIA NC, 02 INCREASED TO 97%, NO SIGNS OF RESP DISTRESS, ALL PT SAFETY PRECAUTIONS IN PLACE, BED LOCKED AND LOW POSITION, WITH S/R X2 UP, CALL LIGHT W/I REACH, WILL CONTINUE TO MONITOR CLOSELY.
[2020-05-05] MEDS ORDERED: MEROPENEM 500 MG in IV NS 0.9% 50 ML IV SCH (21:30)
--- NOTE | 2020-05-05 22:00 | NUR ---
RN NOTES, URINE AND HAN COLLECTED, LAB AWARE. Addendum: 05/06/20 at 0343 by MATT ART RN URINE AND STOOL COLLECTED, LAB AWARE.
--- NOTE | 2020-05-05 22:48 | NUR ---
RN NOTES, INFORMED CORWIN PALOMO TRANSPORTATION SECURITY SCREENER THAT PATIENT AT THIS TIME AFEBRILE, AND PER HI TO ADMINISTER BLOOD, NOTED AND CARRIED OUT.
--- NOTE | 2020-05-05 23:00 | NUR ---
RN NOTES, INFORMED DR HERNANDEZ THAT PATIENT WITH SBP 70S, AND THAT WE ABOUT TO ADMINISTER BLOOD, PER MD NO NEW ORDERS BUT ADMINISTER THE BLOOD AND, WILL BE FINE, INFORM IF SBP DOES NOT IMPROVED, NOTED AND CARRIED OUT,
[2020-05-05 23:21] VITALS: BP 80/40
[2020-05-05 23:36] VITALS: BP 84/42
[2020-05-05] MEDS ORDERED: MEROPENEM 500 MG VIAL IV ONE (23:51)
[2020-05-06] VITALS (8 sets, daily range): BP systolic 87–134; BP diastolic 40–71
--- NOTE | 2020-05-06 | NUR ---
RN CLOSING NOTE, RECEIVED PATIENT IN BED, ASLEEP BUT AROUSES TO VERBAL STIMULI, ABLE TO IDENTIFY SELF AND DATE, FEBRILE WITH 101.0 F AT THIS TIME, COOLING MEASURES REPLACED, PER PRIOR NURSE HOLD BLOOD UNTIL AFEBRILE, ORDER GIVEN BY CORWIN PALOMO NP, NOTED WITH 89% O2, AND PLACED HER ON 2LPM VIA NC, 02 INCREASED TO 97%, NO SIGNS OF RESP DISTRESS, ALL PT SAFETY PRECAUTIONS IN PLACE, BED LOCKED AND LOW POSITION, WITH S/R X2 UP, CALL LIGHT W/I REACH, WILL CONTINUE TO MONITOR CLOSELY. Addendum: 05/06/20 at 0354 by MATT ART RN WRONG TIME
[2020-05-06] MEDS: MEROPENEM 500 MG in IV NS 0.9% 50 ML IV SCH ×2 (00:59→05:00)
--- NOTE | 2020-05-06 02:20 | NUR ---
RN NOTES, DONE WITH BLOOD INFUSION AT THIS TIME, PATIENT WITH SBP IN LOW 90S AT THIS TIME, WILL CONTINUE TO MONITOR CLOSELY, NO S/S OF ANY ADVERSE SIDE EFFECTS/REACTIONS.
[2020-05-06] MEDS: IV NS 0.9% 1,000 ML IV PRN (05:26)
[2020-05-06 06:03] LABS: BILIRUBIN,URINE NEGATIVE (NEGATIVE); COLOR,URINE YELLOW (YELLOW); LEUKOCYTE ESTERASE ,URINE NEGATIVE (NEGATIVE); NITRITE, URINE NEGATIVE (NEGATIVE); PROTEIN,URINE 30 mg/dl (NEGATIVE); UGLUCOSE >=1000 mg/dL (NEGATIVE); UROBILINOGEN,URINE 0.2 EU/dL (0.2)
[2020-05-06 06:17] LABS: BACTERIA,URINE Few /HPF (None Seen); RBC,URINE 0-2 /HPF (0-2); SQUAMOUS EPITHELIAL CELL,UR Few /HPF (None Seen)
[2020-05-06 06:19] LABS: OCCULT BLOOD STOOL NEGATIVE (NEGATIVE)
--- NOTE | 2020-05-06 06:30 | NUR ---
RN CLOSING NOTE, PATIENT IN BED, ASLEEP BUT AROUSES TO VERBAL STIMULI, AFEBRILE AT THIS TIME, NO SOB/ASCUTE DISTRESS BACK AT RA WITH O2 WNL, URINE AND STOOL COLLECTED, AFTER AFEBRILE AND WHEN ABOU TO ADMINISTER BLOOD SBP IN 70S, AFTER E ADMINISTRATION OF BLOOD SBP IMPROVED TO 90S AND THE LAST SBP LOW 100, ALL PT SAFETY PRECAUTIONS IN PLACE, BED LOCKED AND LOW POSITION, WITH S/R X2 UP, CALL LIGHT W/I REACH, WILL ENDORSE CONTINUITY OF CARE TO ONCOMING NURSE.
[2020-05-06 06:39] LABS: BASOPHILS # (AUTO) 0.1 /CMM (0.0-0.2); BASOPHILS % (AUTO) 0.2 % (0.0-2.0); HEMATOCRIT 26 % (33-45); HEMOGLOBIN 8.2 g/dL (11.5-14.8); LYMPHOCYTES % (AUTO) 4.5 % (20.0-44.0); MEAN CORPUSCULAR HGB CONC 32 g/dl (31.0-36.0); MEAN CORPUSCULAR VOLUME 70 fL (82-100); MONOCYTES # (AUTO) 1.1 /CMM (0.1-1.30); MONOCYTES % (AUTO) 4.9 % (2.0-12.0); NEUTROPHILS # (AUTO) 21.1 /CMM (1.8-8.9); NEUTROPHILS % (AUTO) 90.4 % (43.0-81.0); PLATELET COUNT (AUTO) 143 /CMM (150-450); RED BLOOD CELL COUNT(AUTO) 3.71 MIL/uL (4.0-5.2); WHITE BLOOD COUNT (AUTO) 23.3 K/uL (4.3-11.0)
[2020-05-06 06:58] LABS: CREATININE 0.9 mg/dL (0.6-1.3); MAGNESIUM 1.8 mg/dL (1.8-2.4); PHOSPHORUS 2.9 mg/dL (2.5-4.9)
[2020-05-06 07:07] LABS: POTASSIUM 2.5 mmol/L (3.5-5.1)
--- NOTE | 2020-05-06 07:30 | NUR ---
RN OPENING NOTE PT IN BED SEMI FOWLERS, A/Ox2, ON NC 3LPM SPO2 97% WITH NO SIGNS OF SOB OR LABORED BREATHING. NO FEVER. SKIN IS INTACT. SHERLEY MIDLINE RUNNING NS @ 75ML/HR, FLUSHED, PATENT, INTACT, WITH NO SIGNS OF INFECTION/INFILTRATION. PT H/H IMPROVED TO 8.2/26 AFTER 1 UNIT PRBC TRANSFUSED DURING COOK MESS 05/05 2300 (NO SIGNS OF ACTIVE BLEED NOTED). ALL PT SAFETY PRECAUTIONS IN PLACE. WILL CONT TO MONITOR
--- NOTE | 2020-05-06 07:41 | NUR ---
RN NOTE SPOKE WITH PHARMACY, OK TO NON-ADMIN 0500 MERREM D/T PRBC BEING INFUSED. INSTRUCTED TO ADMIN 0900 MERREM @ 33.3 ML/HR
--- NOTE | 2020-05-06 08:00 | NUR ---
RN NOTE INFORMED CORIWN PALOMO OF PT'S LOW POTASSIUM LEVEL OF 2.5, HIGH GLUCOSE 312, AND SMALL RT PNEUMOTHORAX. AWAITING ORDERS
[2020-05-06] MEDS: FAMOTIDINE (20 MG) 20 MG TABLET PO SCH ×2 (08:40→21:41)
[2020-05-06] MEDS: MEROPENEM 500 MG in IV NS 0.9% 100 ML IV SCH ×2 (08:40→21:57)
[2020-05-06] MEDS: PANTOPRAZOLE 40 MG VIAL IV SCH (08:40)
[2020-05-06] MEDS: POTASSIUM CL. PREMIX PERIPHER. 50 ML IV SCH ×8 (09:59→20:49)
[2020-05-06 11:23] LABS: BAND % (MANUAL) 2 % (0.0-5.0); LYMPHOCYTES % (MANUAL) 5 % (16-48); MONOCYTES % (MANUAL) 3 % (0-11.0); NEUTROPHILS % (MANUAL) 90 (42-76)
[2020-05-06] MEDS: SOD FERRIC GLUC 125 MG in IV NS 0.9% 100 ML IV SCH (14:22)
--- NOTE | 2020-05-06 19:00 | NUR ---
RN CLOSING NOTE NO CHANGES TO PT STATUS DURING SHIFT. NO SOB OR RESP DISTRESS. PT RECEIVED 6/8 KCL 10MEQ EACH, LAST 2 WILL BE GIVEN BY NIGHT RN. ALL PT SAFETY PRECAUTIONS IN PLACE. WILL ENDORSE SUSANNE TO ONCOMING RN
--- NOTE | 2020-05-06 20:00 | NUR ---
RN NOTE RECEIVED PT IN BED, A/O X2 PT IS ON 3 L VIA NC SATING 100%, NO S/S OF DISTRESS NOTED. PT HAS UNLABORED BREATHING. SAFETY MEASURES IN PLACE.
[2020-05-07] MEDS: IV NS 0.9% 1,000 ML IV PRN ×2 (00:02→14:04)
[2020-05-07 04:00] VITALS: BP 124/74
[2020-05-07 05:58] LABS: BASOPHILS # (AUTO) 0.1 /CMM (0.0-0.2); BASOPHILS % (AUTO) 0.3 % (0.0-2.0); EOSINOPHILS % (AUTO) 0.2 % (0.0-6.0); HEMATOCRIT 26 % (33-45); HEMOGLOBIN 8.1 g/dL (11.5-14.8); LYMPHOCYTES # (AUTO) 1.3 /CMM (0.8-4.8); LYMPHOCYTES % (AUTO) 6.4 % (20.0-44.0); MEAN CORPUSCULAR HGB CONC 32 g/dl (31.0-36.0); MEAN CORPUSCULAR VOLUME 66 fL (82-100); MONOCYTES # (AUTO) 0.9 /CMM (0.1-1.30); MONOCYTES % (AUTO) 4.4 % (2.0-12.0); NEUTROPHILS # (AUTO) 17.4 /CMM (1.8-8.9); NEUTROPHILS % (AUTO) 88.7 % (43.0-81.0); PLATELET COUNT (AUTO) 125 /CMM (150-450); RED BLOOD CELL COUNT(AUTO) 3.91 MIL/uL (4.0-5.2); WHITE BLOOD COUNT (AUTO) 19.7 K/uL (4.3-11.0)
[2020-05-07 06:17] LABS: ALBUMIN 2.2 g/dL (3.4-5.0); BAND % (MANUAL) 1 % (0.0-5.0); BILIRUBIN,DIRECT 0.2 mg/dL (0.0-0.2); BILIRUBIN,TOTAL 0.9 mg/dL (0.2-1.0); LYMPHOCYTES % (MANUAL) 1 % (16-48); MONOCYTES % (MANUAL) 5 % (0-11.0); NEUTROPHILS % (MANUAL) 93 (42-76); TOTAL PROTEIN, SERUM 6.1 g/dL (6.4-8.2)
[2020-05-07 06:32] LABS: THYROID STIMULATING HORMONE 6.658 uIU/mL (0.358-3.74)
--- NOTE | 2020-05-07 07:19 | NUR ---
RN NOTE REPORT GIVEN TO ONCOMING SHIFT FOR SUSANNE.
--- NOTE | 2020-05-07 07:20 | NUR ---
RN OPENING NOTES RECEIVED PT IN BED. A/O X2. ON 2L O2 VIA NC SATING @100%. NO SOB OR ANY S/S OF RESPIRATORY DISTRESS NOTED. AMBULATORY WITH ASSIST. SHERLEY MIDLINE INTACT AND PATENT. NS @75 ML/HR INFUSING WELL. NO PAIN REPORTED AT THIS TIME. SAFETY MEASURES IN PLACE. BED LOCKED AND AT LOWEST POSITION WITH SIDE RAILS UP X2. CALL LIGHT WITHIN REACH. BED ALARM ON. WILL CONTINUE TO MONITOR.
[2020-05-07] MEDS: PANTOPRAZOLE 40 MG VIAL IV SCH (08:26)
[2020-05-07] MEDS: FAMOTIDINE (20 MG) 20 MG TABLET PO SCH ×3 (08:26→21:02)
[2020-05-07] MEDS: MEROPENEM 500 MG in IV NS 0.9% 100 ML IV SCH ×2 (08:26→21:02)
[2020-05-07 09:38] LABS: CALCIUM, SERUM 8.5 mg/dL (8.5-10.1); CARBON DIOXIDE 22 mmol/L (21-32); CHLORIDE 106 mmol/L (98-107); CREATININE 0.5 mg/dL (0.6-1.3); GLUCOSE 260 mg/dL (74-106); POTASSIUM 3.9 mmol/L (3.5-5.1); SODIUM SERUM 139 mmol/L (136-145); UREA NITROGEN, BLOOD 20 mg/dL (7-18)
[2020-05-07 12:00] VITALS: BP 110/64
--- NOTE | 2020-05-07 18:39 | NUR ---
RN CLOSING NOTES NO SIGNIFICANT CHANGES THROUGHOUT SHIFT. VS STABLE. NOT IN DISTRESS. NO PAIN REPORTED AT THIS TIME. SAFETY MEASURES IN PLACE. CALL LIGHT WITHIN REACH. BED LOCKED AND AT LOWEST POSITION WITH SIDE RAILS UP X3. WILL ENDORSE TO NIGHT NURSE FOR SUSANNE.
--- NOTE | 2020-05-07 19:15 | NUR ---
ASSUMED CARE OF PATIENT. A/O X1 TO SELF. CURRENTLY ON ROOM AIR AND DOES NOT NOT APPEAR IN ANY DISTRESS AT THIS MOMENT. NO REPORTS OF PAIN. SHERLEY MIDLINE PATENT AND INFUSING NS @75ML/HR. SAFETY MEASURES IN PLACE. BED IN LOW POSITION AND LOCKED WITH SIDE RAILS UP X2. CALL LIGHT WITHIN REACH AND BED ALARM ON. WILL CONTINUE TO MONITOR.
[2020-05-07 20:00] VITALS: BP 146/66
[2020-05-08 04:00] VITALS: BP 160/84
[2020-05-08] MEDS: IV NS 0.9% 1,000 ML IV PRN ×2 (04:11→16:50)
[2020-05-08 06:12] LABS: BASOPHILS # (AUTO) 0.2 /CMM (0.0-0.2); BASOPHILS % (AUTO) 1.1 % (0.0-2.0); EOSINOPHILS % (AUTO) 0.7 % (0.0-6.0); HEMATOCRIT 25 % (33-45); HEMOGLOBIN 7.8 g/dL (11.5-14.8); LYMPHOCYTES # (AUTO) 1.4 /CMM (0.8-4.8); LYMPHOCYTES % (AUTO) 9.8 % (20.0-44.0); MEAN CORPUSCULAR HGB CONC 31 g/dl (31.0-36.0); MEAN CORPUSCULAR VOLUME 65 fL (82-100); MONOCYTES # (AUTO) 1.1 /CMM (0.1-1.30); NEUTROPHILS # (AUTO) 11.4 /CMM (1.8-8.9); NEUTROPHILS % (AUTO) 80.4 % (43.0-81.0); PLATELET COUNT (AUTO) 152 /CMM (150-450); RED BLOOD CELL COUNT(AUTO) 3.87 MIL/uL (4.0-5.2); WHITE BLOOD COUNT (AUTO) 14.2 K/uL (4.3-11.0)
[2020-05-08 06:17] LABS: CALCIUM, SERUM 8.3 mg/dL (8.5-10.1); CARBON DIOXIDE 25 mmol/L (21-32); CHLORIDE 106 mmol/L (98-107); CREATININE 0.4 mg/dL (0.6-1.3); GLUCOSE 204 mg/dL (74-106); MAGNESIUM 1.5 mg/dL (1.8-2.4); SODIUM SERUM 140 mmol/L (136-145); UREA NITROGEN, BLOOD 8 mg/dL (7-18)
--- NOTE | 2020-05-08 07:11 | NUR ---
No significant changes overnight. Patient not in any distress and no pain reported during this shift. Patient has been NPO since midnight for possible procedure today. Safety measures remain in place. Report given to KOSTAS Pedroza and labs reviewed.
--- NOTE | 2020-05-08 07:15 | NUR ---
RN OPENING NOTES RECEIVED PT IN BED. ON ROOM AIR SATING @94%. NO SOB OR ANY S/S OF RESPIRATORY DISTRESS NOTED. AMBULATORY WITH ASSIST. SHERLEY MIDLINE INTACT AND PATENT. NS @75 ML/HR INFUSING WELL. NO PAIN REPORTED AT THIS TIME. SAFETY MEASURES IN PLACE. BED LOCKED AND AT LOWEST POSITION WITH SIDE RAILS UP X2. CALL LIGHT WITHIN REACH. BED ALARM ON. WILL CONTINUE TO MONITOR.
[2020-05-08 08:00] LABS: BAND % (MANUAL) 1 % (0.0-5.0); LYMPHOCYTES % (MANUAL) 11 % (16-48); MONOCYTES % (MANUAL) 7 % (0-11.0); NEUTROPHILS % (MANUAL) 81 (42-76)
[2020-05-08 08:07] LABS: *ANA ANTI-CENTROMERE B AB <0.2 AI (0.0-0.9); *ANA ANTI-DNA(DS) AB, QN 1 IU/mL (0-9); *ANA ANTI-JO-1 <0.2 AI (0.0-0.9); *ANA ANTICHROMATIN ANTIBODY <0.2 AI (0.0-0.9); *ANA RNP ANTIBODIES 0.3 AI (0.0-0.9); *ANA SJOGREN'S ANTI-SS-A <0.2 AI (0.0-0.9); *ANA SJOGREN'S ANTI-SS-B <0.2 AI (0.0-0.9); *ANAANTI-SCLERODERMA-70 AB <0.2 AI (0.0-0.9); *ANASMITH AB <0.2 AI (0.0-0.9); *SPE A/G RATIO 0.8 (0.7-1.7); *SPE ALBUMIN 2.4 g/dL (2.9-4.4); *SPE ALPHA-1-GLOBULIN 0.4 g/dL (0.0-0.4); *SPE ALPHA-2-GLOBULIN 0.9 g/dL (0.4-1.0); *SPE GLOBULIN, TOTAL 3.1 g/dL (2.2-3.9); *SPE M-SPIKE Not Observed g/dL (Not Observed); *SPEGAMMA GLOBULIN 0.9 g/dL (0.4-1.8); IMMUNOGLOBULIN A, SERUM 269 mg/dL (64-422); IMMUNOGLOBULIN G, SERUM 912 mg/dL (586-1602); IMMUNOGLOBULIN M, SERUM 55 mg/dL (26-217)
[2020-05-08] MEDS: MEROPENEM 500 MG in IV NS 0.9% 100 ML IV SCH ×2 (09:04→21:19)
[2020-05-08] MEDS: PANTOPRAZOLE 40 MG VIAL IV SCH (09:04)
[2020-05-08] MEDS: FAMOTIDINE (20 MG) 20 MG TABLET PO SCH ×2 (09:05→21:19)
[2020-05-08] MEDS: Magnesium 1GM/D5W 100ML PREMIX 100 ML IV SCH ×2 (11:10→12:24)
[2020-05-08] MEDS: POTASSIUM CHLORIDE 20 MEQ TAB.PRT.SR PO SCH ×3 (11:10→13:41)
[2020-05-08 12:00] VITALS: BP 162/89
[2020-05-08 16:45] VITALS: BP 153/80
--- NOTE | 2020-05-08 16:50 | NUR ---
RN NOTES TRANSFERRED PT TO 3W ROOM 312 PER PROTOCOL. REPORT GIVEN TO KATIE KENYON FOR SUSANNE.
--- NOTE | 2020-05-08 17:00 | NUR ---
MS RN NOTES PATIENT RECEIVED IN BED, ALERT AND ORIENTED X 1, VERY FORGETFUL BUT ABLE TO REORIENT AND REDIRECT.ON ROOM AIR WITH NO SIGNS OF RESPIRATORY DISTRESS NOTED AT THIS TIME. PATIENT DENIES ANY PAIN OR DISCOMFORT AT THIS TIME. IV ACCESS INTACT AND PATENT ON RIGHT UPPER MIDLINE. SAFETY PRECAUTIONS IMPLEMENTED WITH BED LOCKED, BED ALARM ON, BILATERAL SIDE RAILS UP AND CALL LIGHT WITHIN EASY REACH OF PATIENT. WILL CONTINUE TO MONITOR PATIENT.
[2020-05-08] MEDS: ACETAMINOPHEN 325 MG TABLET PO PRN (17:17)
--- NOTE | 2020-05-08 18:34 | NUR ---
MS RN NOTES PATIENT IN BED RESTING COMFORTABLY, ALERT AND ORIENTED X 1, ABLE TO REORIENT AND REDIRECT PATIENT. ON ROOM AIR, DENIES SOB, WITH EVEN NON-LABORED BREATHING, AND NO RESPIRATORY DISTRESS NOTED AT THIS TIME. PATIENT DENIES PAIN AND DISCOMFORT AT THIS TIME. MET ALL OF PATIENTS NEEDS. SKIN KEPT CLEAN, WARM AND DRY TO TOUCH. IV ACCESS INTACT AND PATENT ON RIGHT UPPER ARM, CURRENTLY INFUSING 75ml/hr OF NORMAL SALINE. SAFETY PRECAUTIONS IMPLEMENTED WITH BED LOCKED, BILATERAL SIDE RAILS UP, BED ALARM ON, BED IN THE LOWEST POSITION, AND CALL LIGHT WITHIN EASY REACH. WILL ENDORSE PLAN OF CARE TO UPCOMING RN.
--- NOTE | 2020-05-08 19:15 | NUR ---
MS/RN OPENING NOTE RECEIVED PATIENT RESTING IN BED. ALERT AND ORIENTED TO SELF. ABLE TO MAKE NEEDS KNOWN. NO COMPLAINTS OF PAIN AT THIS TIME. CONTINUES ON ROOM AIR WITH NO SIGNS OR SYMPTOMS OF RESPIRATORY DISTRESS NOTED. SHERLEY MIDLINE IN PLACE - INTACT AND PATENT. CONTINUES ON IV ABX. CALL LIGHT WITHIN REACH. ASPIRATION, FALL AND SAFETY PRECAUTIONS MAINTAINED. WILL CONTINUE TO MONITOR.
[2020-05-08 20:00] VITALS: BP 154/80
--- NOTE | 2020-05-08 22:00 | NUR ---
MS/RN NOTE IV MERRUM STARTED AT 2128. IV SITE CLEAN, DRY AND INTACT WITH NO SIGNS OR SYMPTOMS OF PHLEBITIS OR INFILTRATION. AT APPROX. 2199 BELL STAFF NOTIFIED THIS RN THAT PATIENT WAS COMPLAINING OF PAIN TO IV SITE. THIS RN WENT INTO ROOM AND PATIENT HAD PULLED OUT HER MIDLINE STATING "I DONT NEED IT ANYMORE". EDUCATED PATIENT ON IMPORTANCE OF CONTINUING HER IV ABX. CHARGE NURSE IN AT THIS TIME TO ATTEMPT TO PLACE NEW IV. PATIENT REFUSING, WAVING ARMS AROUND, YELLING AT STAFF. CHARGE NURSE STATES SHE WOULD CHECK WITH PATIENT LATER TO SEE IF SHE WANTS IV. PATIENT STATES "I DONT WANT IT AT ALL". UNABLE TO COMPLETE IV ABX AT THIS TIME. WILL CONTINUE TO MONITOR. Addendum: 05/09/20 at 0732 by MITRA OCONNOR RN COMPLETED FULL DOSE OF ABX.
[2020-05-09] MEDS: ACETAMINOPHEN 325 MG TABLET PO PRN (02:10)
[2020-05-09 04:00] VITALS: BP 152/75
--- NOTE | 2020-05-09 06:15 | NUR ---
MS/RN CLOSING NOTE PATIENT CURRENTLY RESTING IN BED. AWAKE, ALERT AND ORIENTED X 1. ABLE TO MAKE NEEDS KNOWN. NO COMPLAINTS OF PAIN AT THIS TIME. PATIENT CONTINUING TO REFUSE IV ACCESS. WILL ENDORSE TO ONCOMING SHIFT. CONTINUES ON ROOM AIR WITH NO SIGNS OR SYMPTOMS OF RESPIRATORY DISTRESS NOTED. OLD IV SITE TO RIGHT ARM FREE OF REDNESS, SWELLING OR PAIN AT THIS TIME. CALL LIGHT WITHIN REACH. ASPIRATION, FALL AND SAFETY PRECAUTIONS MAINTAINED. WILL ENDORSE PLAN OF CARE TO ONCOMING SHIFT.
--- NOTE | 2020-05-09 07:30 | NUR ---
RECEIVED PT. IN AM ALERT AND ORIENTED X1-2.CONFUSED AND NEEDS CONSTANT SUPERVISION.
[2020-05-09 08:00] VITALS: BP 157/84
[2020-05-09] MEDS: FAMOTIDINE (20 MG) 20 MG TABLET PO SCH ×2 (09:07→21:30)
[2020-05-09 09:31] LABS: CALCIUM, SERUM 8.6 mg/dL (8.5-10.1); CREATININE 0.6 mg/dL (0.6-1.3); MAGNESIUM 1.8 mg/dL (1.8-2.4); POTASSIUM 3.3 mmol/L (3.5-5.1)
[2020-05-09 09:32] LABS: BASOPHILS # (AUTO) 0.1 /CMM (0.0-0.2); EOSINOPHILS % (AUTO) 1.3 % (0.0-6.0); HEMATOCRIT 30 % (33-45); HEMOGLOBIN 9.1 g/dL (11.5-14.8); LYMPHOCYTES # (AUTO) 1.3 /CMM (0.8-4.8); LYMPHOCYTES % (AUTO) 9.1 % (20.0-44.0); MEAN CORPUSCULAR HGB CONC 31 g/dl (31.0-36.0); MEAN CORPUSCULAR VOLUME 66 fL (82-100); MONOCYTES # (AUTO) 1.2 /CMM (0.1-1.30); MONOCYTES % (AUTO) 8.3 % (2.0-12.0); NEUTROPHILS # (AUTO) 11.5 /CMM (1.8-8.9); NEUTROPHILS % (AUTO) 80.3 % (43.0-81.0); PLATELET COUNT (AUTO) 221 /CMM (150-450); RED BLOOD CELL COUNT(AUTO) 4.48 MIL/uL (4.0-5.2); WHITE BLOOD COUNT (AUTO) 14.3 K/uL (4.3-11.0)
[2020-05-09] MEDS ORDERED: LORAZEPAM 1 MG TABLET PO PRN (10:30)
[2020-05-09] MEDS ORDERED: PEG 3350/NA SULF,BICARB,CL/KCL 4,000 ML BOTTLE PO ONE (11:00)
[2020-05-09] MEDS: LEVOTHYROXINE SODIUM 25 MCG TABLET PO SCH (11:33)
[2020-05-09 12:19] LABS: BAND % (MANUAL) 2 % (0.0-5.0); EOSINOPHILS % (MANUAL) 1 % (0-4); LYMPHOCYTES % (MANUAL) 14 % (16-48); MONOCYTES % (MANUAL) 7 % (0-11.0); NEUTROPHILS % (MANUAL) 76 (42-76)
--- NOTE | 2020-05-09 14:14 | NUR ---
given ativan in preparation of midline insertion.
--- NOTE | 2020-05-09 14:20 | NUR ---
#18 midline inserted by midline nurse,without difficulty.
--- NOTE | 2020-05-09 14:40 | NUR ---
rn in to rm. to find pt. had just removed midline catheter in lt. arm.dr rojas contacted as former iv site rt. upper arm with pinkish tinge to skin and swelling present. dr. rojas states he will order duplex study.
--- NOTE | 2020-05-09 14:41 | NUR ---
mittens applied and shortly after pt. removed mitten to rt. hand.
--- NOTE | 2020-05-09 14:42 | NUR ---
midline rn contacted and back again.reinserted another midline lt. arm.robert hung.now with wrist reatraints.
[2020-05-09] MEDS: MEROPENEM 500 MG in IV NS 0.9% 100 ML IV SCH ×2 (14:43→21:30)
[2020-05-09 16:00] VITALS: BP 185/90
--- NOTE | 2020-05-09 18:00 | NUR ---
DR. PALOMO INFORMED OF ELEVATED BP AND NEED FOR HIS ENTRY IN PROGRESS NOTES TO URGENT NEED FOR CT SCAN OF HEAD NO FAMILY TO SIGN CONSENT.ADDITIONALLY VENOUS DUPLEX ORDER CHANGEDTO STAT.NOT DONE YET
--- NOTE | 2020-05-09 19:55 | NUR ---
MS/RN OPENING NOTE RECEIVED PATIENT RESTING IN BED. AWAKE, ALERT AND ORIENTED X 1. YELLING OUT AT TIMES. CONTINUES WITH BILATERAL SOFT WRIST RESTRAINTS WITH NO SKIN INJURIES NOTED. IV TO LEFT UPPER ARM INTACT AND PATENT. CONTINUES ON IV ABX. CONTINUES WITH GOLYTLY PREP FOR COLONOSCOPY. CONTINUES ON CLEAR LIQUID DIET. NPO AFTER MIDNIGHT. NO COMPLAINTS OF PAIN AT THIS TIME. CALL LIGHT WITHIN REACH. ASPIRATION, FALL AND SAFETY PRECAUTIONS MAINTAINED. WILL CONTINUE TO MONITOR.
[2020-05-09 20:00] VITALS: BP 155/86
--- NOTE | 2020-05-09 22:30 | NUR ---
MS/RN NOTE ATTEMPTED TO HAVE PATIENT DRINK GOLYTELY MULTIPLE TIMES WITH PATIENT AGREEING AND THEN ONLY TAKING A FEW SIPS. PATIENT HAS ONLY COMPLETED 5 GLASSES OF GOLYTELY. NO BM'S AT THIS TIME. REEDUCATED PATIENT ON IMPORTANCE OF FINISHING COLONOSCOPY PREP WITH PATIENT STATING "I KNOW BUT I DONT WANT TO DRINK ANYMORE RIGHT NOW!" WILL CONTINUE TO MONITOR .
--- NOTE | 2020-05-10 | NUR ---
MS/RN NOTE PATIENT ONLY COMPLETED A TOTAL OF 6 GLASSES OF GOLYTELY DUE TO PATIENT REFUSING. NO BM'S NOTED THIS SHIFT. PT IS NPO AT THIS TIME. WILL ENDORSE TO ONCOMING SHIFT.
[2020-05-10] MEDS ORDERED: LORAZEPAM 1 MG TABLET PO PRN (01:40)
--- NOTE | 2020-05-10 01:40 | NUR ---
MS/RN NOTE PATIENT WITH INCREASED AGITATION, CONTINUOUSLY YELLING OUT. CONTINUES IN BILATERAL SOFT WRIST RESTRAINTS. DISTRICT REPRESENTATIVE MD HERNANDEZ CONTACTED WITH NEW ORDER FOR ATIVAN 1MG ONE TIME. ORDERS RECEIVED AND CARRIED OUT. WILL CONTINUE TO MONITOR.
[2020-05-10 04:00] VITALS: BP 150/80
[2020-05-10] MEDS: IV NS 0.9% 1,000 ML IV PRN (07:01)
[2020-05-10] MEDS: LEVOTHYROXINE SODIUM 25 MCG TABLET PO SCH (07:30)
--- NOTE | 2020-05-10 07:30 | NUR ---
MS/RN CLOSING NOTE PATIENT CURRENTLY RESTING IN BED. AWAKE, ALERT AND ORIENTED X 1-2. ABLE TO MAKE NEEDS KNOWN. NO COMPLAINTS OF PAIN AT THIS TIME. IV TO BING INTACT AND PATENT. CONTINUES ON BILATERAL WRIST RESTRAINTS WITH NO SIGNS OR SYMPTOMS OF SKIN INJURIES NOTED. RIGHT UPPER ARM REMAINS SWOLLEN AND SLIGHTLY RED. CONTACTED DR. VALENTINO TO NOTIFY OF PATIENT REFUSING MOST OF THE GOLYTELY. AWAITING RESPONSE. PATIENT ABLE TO SIGN FOR CONSENT THIS MORNING FOR CT SCAN. CALL LIGHT WITHIN REACH. ASPIRATION, FALL AND SAFETY PRECAUTIONS MAINTAINED. WILL ENDORSE PLAN OF CARE TO ONCOMING SHIFT.
[2020-05-10 08:00] VITALS: BP 164/76
[2020-05-10] MEDS: FAMOTIDINE (20 MG) 20 MG TABLET PO SCH ×2 (08:07→20:16)
[2020-05-10] MEDS: MEROPENEM 500 MG in IV NS 0.9% 100 ML IV SCH ×2 (08:14→20:16)
--- NOTE | 2020-05-10 09:17 | NUR ---
RN NOTES CLARIFIED W/ DR. PALOMO ABOUT PATIENT'S CT HEAD TO BE WITHOUT CONTRAST; ORDERS CHANGED AND RADIOLOGY AWARE. PICKED UP PATIENT FOR PROCEDURE VIA PATIENT'S OWN BED ACCOMPANIED BY 2 RADIOLOGY TECHS.
--- NOTE | 2020-05-10 09:30 | NUR ---
RN NOTES PATIENT RETURNED FROM CT PROCEDURE, ACCOMPANIED BY 2 RADIOLOGY TECHS.
[2020-05-10 12:00] VITALS: BP 135/78
--- NOTE | 2020-05-10 12:55 | NUR ---
RN NOTES RECEIVED CALL FROM OR REGARDING PATIENT'S SCHEDULED COLONOSCOPY; MADE AWARE THAT PATIENT WAS NOT ABLE TO FINISH GOLYTELY AND ONLY DRANK A COUPLE OF GLASS PER PREVIOUS SHIFT RN REPORT. RECEIVED CALL FROM LAB THAT PATIENT ALSO REFUSED BLOOD DRAW.
--- NOTE | 2020-05-10 15:55 | NUR ---
RN NOTES RECEIVED CALL FROM SVEN, OR NURSE, AND INFORMED THAT COLONOSCOPY PROCEDURE THIS AFTERNOON IS MOST LIKELY CANCELLED; LEFT MESSAGE TO DR. VALENTINO TO CONFIRM RESCHEDULE OF COLONOSCOPY. WILL RESUME CLEAR LIQUID DIET FOR NOW.
--- NOTE | 2020-05-10 18:06 | NUR ---
RN NOTES INFORMED BY STEAM AND GAS TURBINES ASSEMBLER THAT PATIENT REFUSED BLOOD DRAW THIS AFTERNOON; SITTER AT BEDSIDE, AND PATIENT STILL REFUSED.
--- NOTE | 2020-05-10 18:54 | NUR ---
MS RN CLOSING NOTE PATIENT RESTING IN BED, ABLE TO BE AWAKENED. ALERT AND ORIENTED X1-2, ABLE TO MAKE NEEDS KNOWN. BREATHING EVEN AND UNLABORED, CONTINUES ON ROOM AIR. BING MIDLINE, INTACT AND PATENT. WITH BILATERAL WRIST RESTRAINTS, CIRCULATION CHECKED ROUTINELY. PLACED ON CLEAR LIQUIDS FOR NOW AND RETRY GOLYTELY AGAIN WHILE AWAITING DR. VALENTINO'S ORDERS. SAFETY PRECAUTIONS MAINTAINED. WILL ENDORSE TO HAND SHAPER RN FOR SUSANNE.
--- NOTE | 2020-05-10 19:20 | NUR ---
MS/RN OPENING NOTE RECEIVED PATIENT SLEEPING IN BED. ALERT AND ORIENTED X 1-2. ABLE TO MAKE NEEDS KNOWN. NO COMPLAINTS OF PAIN AT THIS TIME. SITTER OUMAR IN WITH PATIENT TONIGHT. WILL ATTEMPT TO HAVE PATIENT COMPLETE GOLYTELY TONIGHT. IV ACCESS TO LEFT UPPER ARM INTACT AND PATENT. NS RUNNING AT 75ML/HR. PATIENT CONTINUES ON CLEAR LIQUID DIET WITH NPO STATUS AFTER MIDNIGHT. CONTINUES ON BILATERAL SOFT WRIST RESTRAINTS WITH POSITIVE CIRCULATION. NO SIGNS OR SYMPTOMS OF SKIN INJURIES NOTED. CALL LIGHT WITHIN REACH. ASPIRATION, FALL AND SAFETY PRECAUTIONS MAINTAINED. WILL CONTINUE TO MONITOR.
[2020-05-10 20:00] VITALS: BP 151/89
[2020-05-10] MEDS: ACETAMINOPHEN 325 MG TABLET PO PRN (20:16)
--- NOTE | 2020-05-10 22:00 | NUR ---
MS/RN NOTE PATIENT CONTINUES TO REFUSE GOLYTELY. CONSUMED HALF A GLASS THIS SHIFT SO FAR. PATIENT WILL BE NPO AT MIDNIGHT. WILL CONTINUE TO MONITOR.
--- NOTE | 2020-05-11 | NUR ---
MS/RN NOTE PATIENT UNABLE TO FINISH GOLYTELY. CONTINUOUSLY REFUSING. WILL CONTINUE CLEAR LIQUID DIET. NO BM'S AT THIS TIME.
[2020-05-11] MEDS: IV NS 0.9% 1,000 ML IV PRN ×2 (03:52→18:28)
[2020-05-11 04:00] VITALS: BP 145/71
--- NOTE | 2020-05-11 06:00 | NUR ---
MS/RN CLOSING [id number] Addendum: 05/11/20 at 0635 by MITRA OCONNOR RN MS/RN CLOSING NOTE PATIENT CURRENTLY SLEEPING IN BED. ALERT AND ORIENTED X 1-2. ABLE TO MAKE NEEDS KNOWN. NO COMPLAINTS OF PAIN AT THIS TIME. IV ACCESS TO LEFT UPPER ARM INTACT AND PATENT. CONTINUES ON IV NS @ 75ML/HR. PATIENT REFUSED MOST OF GOLYTELY THIS SHIFT. CONSUMED APPROX. 2 CUPS TOTAL. NO BM'S NOTED AT THIS TIME. CONTINUES ON SOFT WRIST RESTRAINTS BILATERALLY WITH POSITIVE CIRCULATION AND NO SKIN INJURIES NOTED. CALL LIGHT WITHIN REACH. ASPIRATION, FALL AND SAFETY PRECAUTIONS MAINTAINED. WILL ENDORSE PLAN OF CARE TO ONCOMING SHIFT.
--- NOTE | 2020-05-11 07:45 | NUR ---
MS/RN OPENING NOTES RECEIVED PATIENT IS ON BED SLEEPING EASILY AROUSABLE BY NAME AND LIGHT TOUCH. PATIENT IS ON ROOM AIR. PATIENT IN NO APPARENT RESPIRATORY DISTRESS NOTED. NO COMPLAINED OF PAIN NOTED AT THIS TIME. WILL CONTINUE TO MONITOR.
[2020-05-11] MEDS: LEVOTHYROXINE SODIUM 25 MCG TABLET PO SCH (07:57)
[2020-05-11 08:00] VITALS: BP 133/73
[2020-05-11] MEDS: FAMOTIDINE (20 MG) 20 MG TABLET PO SCH ×2 (08:22→20:49)
[2020-05-11] MEDS: MEROPENEM 500 MG in IV NS 0.9% 100 ML IV SCH ×2 (08:23→20:49)
--- NOTE | 2020-05-11 08:30 | NUR ---
MS/RN NOTES PATIENT REFUSED TO TAKE THE GOLYTELY AND BLOOD DRAW FOR LAB TEST. EXPLAINED THE RISK AND BENEFITS PATIENT STILL REFUSING, CORWIN PALOMO NP WAS AWARE.
[2020-05-11] MEDS: MEMANTINE HCL 5 MG TABLET PO SCH (10:33)
[2020-05-11] MEDS ORDERED: IOHEXOL-300 100 ML VIAL IV ONE (14:41)
[2020-05-11] MEDS ORDERED: IV NS 0.9% 0 ML IV ONE (14:41)
--- NOTE | 2020-05-11 14:59 | NUR ---
PATIENT REFUSED CAT SCAN, CHARGE NURSE ROSSY IS AWARE.
--- NOTE | 2020-05-11 15:44 | NUR ---
MS/RN NOTES PATIENT REFUSED TO DO THE CT CHEST ABDOMEN PELVIS WITH CONTRAST. EXPLAINED THE RISK AND BENEFITS. CORWIN PALOMO NP WAS AWARE.
[2020-05-11 16:00] VITALS: BP_SYST 130; BP_SYST 138; BP_DIAS 71; BP_DIAS 77
--- NOTE | 2020-05-11 18:38 | NUR ---
MS/RN CLOSING NOTES PATIENT IS ON BED ALERT AND ORIENTED X 2-3. PATIENT IS ON ROOM AIR SATURATION 96%. PATIENT IN NO APPARENT RESPIRATORY DISTRESS NOTED. NO COMPLAINED OF PAIN AT THIS TIME. IV ACCESS AT LEFT UPPER ARM WITH IV FLUID OF NS AT 75 ML/HR ON AND INFUSING WELL. SEEN AND EXAMINED BY MD WITH ORDERS MADE AND CARRIED OUT. ALL DUE MEDICATIONS WAS GIVE. SAFETY PRECAUTIONS WAS IN PLACED. BED IN LOWEST POSITION AND LOCKED. SIDERAILS UP X2. CALL LIGHT WITHIN REACH. WILL ENDORSED TO TELEMARKETING SALES REPRESENTATIVE FOR SUSANNE.
--- NOTE | 2020-05-11 19:30 | NUR ---
MS/RN OPENING NOTES PATIENT IS IN BED ALERT AND ORIENTED X 2. PATIENT IS ON ROOM AIR IN NO APPARENT RESPIRATORY DISTRESS .BREATHING EVEN AND UNLABORED. DENIES PAIN AT THIS TIME. IV ACCESS AT LEFT UPPER ARM WITH IV FLUID OF NS AT 75 ML/HR. NO S/S OF INFILTRATION. SAFETY PRECAUTIONS IN PLACE. BED IN LOWEST POSITION AND LOCKED. SITTER JJ TOMLINSON AT BEDSIDE. SIDERAILS UP X2. CALL LIGHT WITHIN REACH. WILL CONT TO MONITOR.
--- NOTE | 2020-05-12 04:51 | NUR ---
lab called blood culture showed gram neg rods sensitivity report to follow on 05/08/20 test. will endorse to am shift. meropenem abx currently ordered.
--- NOTE | 2020-05-12 06:30 | NUR ---
pt refused am lab draw per laboratory manager .
[2020-05-12] MEDS: LEVOTHYROXINE SODIUM 25 MCG TABLET PO SCH (07:36)
--- NOTE | 2020-05-12 07:36 | NUR ---
MS/RN OPENING NOTES RECEIVED PATIENT ON BED SLEEPING EASILY AROUSABLE BYNAME AND LIGHT TOUCH. PATIENT IS ON ROOM AIR SATURATING WELL. PATIENT IN NO APPARENT RESPIRATORY DISTRESS NOTED. NO COMPLAINED OF PAIN NOTED AT THIS TIME. WILL CONTINUE TO MONITOR.
[2020-05-12] MEDS: FAMOTIDINE (20 MG) 20 MG TABLET PO SCH ×2 (08:48→21:12)
[2020-05-12] MEDS: MEMANTINE HCL 5 MG TABLET PO SCH (08:48)
--- NOTE | 2020-05-12 09:01 | NUR ---
MS/RN NOTES PATIENT IN NO APPARENT RESPIRATORY DISTRESS NOTED. NO COMPLAINED OF PAIN. PATIENT IS OUT IN THE UNIT WASTE MANAGEMENT RECYCLING TECHNICIAN BY PARTS SALES ADVISOR.
[2020-05-12] MEDS ORDERED: IV NS 0.9% 250 ML IV ONE (09:02)
[2020-05-12] MEDS ORDERED: CT SWABBABLE VALVE TRANS SET 1 EA INFUS.SET MC ONE (09:02)
[2020-05-12] MEDS ORDERED: IOHEXOL-350 100 ML VIAL IV ONE (09:02)
[2020-05-12] MEDS: MEROPENEM 500 MG in IV NS 0.9% 100 ML IV SCH ×2 (09:17→21:21)
--- NOTE | 2020-05-12 09:20 | NUR ---
MS/RN NOTES PATIENT CAME BACK FROM RADIOLOGY. PATIENT IN NO APPARENT RESPIRATORY DISTRESS NOTED. NO COMPLAINED OF PAIN AT THIS TIME.
[2020-05-12] MEDS: IV NS 0.9% 1,000 ML IV PRN (09:21)
[2020-05-12 11:06] LABS: BASOPHILS # (AUTO) 0.1 /CMM (0.0-0.2); BASOPHILS % (AUTO) 1.2 % (0.0-2.0); EOSINOPHILS % (AUTO) 1.8 % (0.0-6.0); HEMATOCRIT 28 % (33-45); HEMOGLOBIN 8.1 g/dL (11.5-14.8); LYMPHOCYTES # (AUTO) 1.4 /CMM (0.8-4.8); LYMPHOCYTES % (AUTO) 17.4 % (20.0-44.0); MEAN CORPUSCULAR HGB CONC 30 g/dl (31.0-36.0); MEAN CORPUSCULAR VOLUME 67 fL (82-100); MONOCYTES # (AUTO) 0.7 /CMM (0.1-1.30); MONOCYTES % (AUTO) 9.1 % (2.0-12.0); NEUTROPHILS # (AUTO) 5.6 /CMM (1.8-8.9); NEUTROPHILS % (AUTO) 70.5 % (43.0-81.0); PLATELET COUNT (AUTO) 643 /CMM (150-450); RED BLOOD CELL COUNT(AUTO) 4.13 MIL/uL (4.0-5.2); WHITE BLOOD COUNT (AUTO) 7.9 K/uL (4.3-11.0)
[2020-05-12 11:38] LABS: CALCIUM, SERUM 8.1 mg/dL (8.5-10.1); CREATININE 0.6 mg/dL (0.6-1.3)
--- NOTE | 2020-05-12 12:03 | NUR ---
Capacity Declaration: EFE received a call from Les Morrison tel: [phone] fax: [phone] [facility] stating that this pt. does not have family and the SNF where pt. resides made a request for pt. to be conserved. Per Les, he is the vocational case manager with [employer] office over seeing this conservatorship case. EFE placed Capacity Declaration Statement paperwork in chart and requested psych consult to complete paperwork. EFE communicated this with Charge nurse, Lemuel and secretary of state, Rochelle placed psych consult order. EFE to fax completed paperwork to Les Morrison fax: [phone] when completed. EFE will be available as needed.
[2020-05-12 12:13] LABS: MAGNESIUM 1.7 mg/dL (1.8-2.4)
[2020-05-12 12:22] LABS: LYMPHOCYTES % (MANUAL) 15 % (16-48); MONOCYTES % (MANUAL) 9 % (0-11.0); NEUTROPHILS % (MANUAL) 76 (42-76)
[2020-05-12] MEDS: POTASSIUM CHLORIDE 20 MEQ POWDER PACKET PO SCH ×3 (15:34→17:53)
[2020-05-12] MEDS: Magnesium 1GM/D5W 100ML PREMIX 100 ML IV SCH ×2 (15:34→16:48)
--- NOTE | 2020-05-12 18:26 | NUR ---
MS/RN CLOSING NOTES PATIENT IS ON BED ALERT AND ORIENTED X 2-3. PATIENT IS ON ROOM AIR SATURATION 96%. PATIENT IN NO APPARENT RESPIRATORY DISTRESS NOTED. NO COMPLAINED OF PAIN AT THIS TIME. IV ACCESS AT LEFT UPPER ARM WITH IV FLUID OF NS AT 75 ML/HR ON AND INFUSING WELL. SEEN AND EXAMINED BY MD WITH ORDERS MADE AND CARRIED OUT. ALL DUE MEDICATIONS WAS GIVE. SAFETY PRECAUTIONS WAS IN PLACED. BED IN LOWEST POSITION AND LOCKED. SIDERAILS UP X2. CALL LIGHT WITHIN REACH. DUPLEX VENOUS ULTRASOUND RIGHT UPPER EXTREMITY AND CT ABDOMEN AND PELVIS WITH CONTRAST DR. VALDOVINOS WAS AWARE NO NEW ORDER. WILL ENDORSED TO DECAL DECORATOR FOR SUSANNE.
--- NOTE | 2020-05-12 19:30 | NUR ---
ms milton initial notes received report from am nurse Leonarda while doing our rounds and saw pt in bed on semi fowlers position with side rails x2 up . she's awake and alert with IVF Ns at 75ml/hr infusing on her left upper midline. no redness noted. Denies any pain or any discomfort at this time. kept her warm and comfortable at all times. will continue monitoring.
[2020-05-12] MEDS: HEPARIN SODIUM, PORCINE 5000 UNITS/1 ML VIAL SQ SCH (21:18)
--- NOTE | 2020-05-12 21:30 | NUR ---
Nephrology Social Worker notes Routine medication given as ordered. Pt still needs further explanation and motivation before she agreed for her medication. will continue monitoring.
[2020-05-13] MEDS: ACETAMINOPHEN 325 MG TABLET PO PRN (00:23)
--- NOTE | 2020-05-13 00:30 | NUR ---
charter bus driver closing notes pt resting at this time without any distress noted. all due meds given, noticed pt forgetful at times. Gonzalez as well sometimes she's nice with you then after that changes her moods to upset and angry. refused to have IVF to be infused at this time after Antibiotic done. She stated she doesn't liked to hear the sounds from the IV pump. able to used the bedside comode with some assist liked standby assistance for her safety. No signs of any discomfort urinating. Tylenol given for her right arm pain. kept her warm and comfortable at all times. will endorse to another nurse for continuity of care.
--- NOTE | 2020-05-13 04:21 | NUR ---
CLOSING NOTES: ALERT SPEECH CLEAR ORIENTATED X2 FORGETFUL ABLE TO GET UP TO THE BEDSIDE COMMODE WITH STAND-BY ASSIST BM THIS SHIFT BROWN IN COLOR UA CLEAR YELLOW REFUSED TO HAVE HER IV FLUIDS THRU THE NIGHT REPOSITION HERSELF IN THE BED SITTER AT THE BEDSIDE NO NOTED SOB
[2020-05-13] MEDS: LEVOTHYROXINE SODIUM 25 MCG TABLET PO SCH (07:30)
--- NOTE | 2020-05-13 07:35 | NUR ---
MS KENYON OPENING NOTES RECEIVED PATIENT IN BED. A/O X3. ON ROOM AIR, TOLERATING WELL . NO SOB NOTED. IN NO APPARENT DISTRESS. IV ACCESS ON L UA MIDLINE, INTACT. SAFETY MEASURES MAINTAINED. BED IN LOWEST POSITION, BRAKES LOCKED. SIDE RAILS UP X2. CALL LIGHT WITHIN REACH. WILL CONTINUE PLAN OF CARE. Addendum: 05/13/20 at 0816 by BANG BLEDSOE RN ENTERED BY ALIVIA RAYMOND, RN
[2020-05-13 08:25] VITALS: BP 146/74
[2020-05-13] MEDS: MEROPENEM 500 MG in IV NS 0.9% 100 ML IV SCH ×2 (08:47→20:00)
[2020-05-13] MEDS: FAMOTIDINE (20 MG) 20 MG TABLET PO SCH ×2 (08:55→21:00)
[2020-05-13] MEDS: MEMANTINE HCL 5 MG TABLET PO SCH (08:55)
[2020-05-13] MEDS: HEPARIN SODIUM, PORCINE 5000 UNITS/1 ML VIAL SQ SCH ×2 (08:56→21:00)
--- NOTE | 2020-05-13 08:56 | NUR ---
MS RN NOTES PATIENT REFUSED AM MEDICATIONS EXCEPT FOR MERREM. EXPLAINED RISK AND BENEFITS BUT STILL REFUSED.
--- NOTE | 2020-05-13 13:59 | NUR ---
MS RN NOTES DR. DOUGLAS WAS ABLE TO CONVINCE THE PT TO CONSIDER COLONOSCOPY. CONSENTS WERE OBTAINED AND SIGNED. UPDATE AND SPOKE WITH DR. MERRILL. HE ORDERED SORBITOL 60 ML Q4H AND GOLYTELY. WILL CONTINUE TO MONITOR THROUGHOUT THE SHIFT. Addendum: 05/13/20 at 1657 by LIZZETTE ACKERMAN RN SORBITOL 60 ML Q4H x4 DOSES
[2020-05-13] MEDS ORDERED: SORBITOL SOLUTION 30 ML PO SCH ×2 (14:00→19:00)
[2020-05-13] MEDS ORDERED: PEG 3350/NA SULF,BICARB,CL/KCL 4,000 ML BOTTLE PO ONE (14:00)
--- NOTE | 2020-05-13 15:23 | NUR ---
SS NOTE: SW received a call from Les Morrison tel: [phone] fax: [phone] from [facility] requesting update regarding capacity declaration paperwork for pt. to be conserved by public guardian's office. EFE touched base with Charge Nurse, Margarita who called [employer] for available Psychiatrist to compete paperwork. Per [facility], Dr. Valentin may be able to see pt. monika. [place], Rochelle re-faxed facesheet to [employer] for psych consult. Completed paperwork to be faxed to Les Morrison fax: [phone] when completed. SW will be available as needed.
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
[2020-05-13 16:21] LABS: BASOPHILS # (AUTO) 0.1 /CMM (0.0-0.2); HEMATOCRIT 26 % (33-45); LYMPHOCYTES # (AUTO) 1.6 /CMM (0.8-4.8); LYMPHOCYTES % (AUTO) 20.4 % (20.0-44.0); MEAN CORPUSCULAR HGB CONC 31 g/dl (31.0-36.0); MEAN CORPUSCULAR VOLUME 67 fL (82-100); MONOCYTES # (AUTO) 0.5 /CMM (0.1-1.30); MONOCYTES % (AUTO) 5.9 % (2.0-12.0); NEUTROPHILS # (AUTO) 5.5 /CMM (1.8-8.9); NEUTROPHILS % (AUTO) 69.7 % (43.0-81.0); PLATELET COUNT (AUTO) 742 /CMM (150-450); RED BLOOD CELL COUNT(AUTO) 3.91 MIL/uL (4.0-5.2); WHITE BLOOD COUNT (AUTO) 7.9 K/uL (4.3-11.0)
[2020-05-13 16:28] LABS: CARBON DIOXIDE 29 mmol/L (21-32); CHLORIDE 103 mmol/L (98-107); CREATININE 0.5 mg/dL (0.6-1.3); GLUCOSE 255 mg/dL (74-106); MAGNESIUM 1.8 mg/dL (1.8-2.4); PHOSPHORUS 2.5 mg/dL (2.5-4.9); POTASSIUM 3.3 mmol/L (3.5-5.1); SODIUM SERUM 140 mmol/L (136-145); UREA NITROGEN, BLOOD 7 mg/dL (7-18)
[2020-05-13 16:29] LABS: IRON, SERUM 19 ug/dl (50-175); TOTAL IRON BINDING CAPACITY 207 ug/dl (250-450)
[2020-05-13 16:36] LABS: EOSINOPHILS % (MANUAL) 4 % (0-4); LYMPHOCYTES % (MANUAL) 17 % (16-48); MONOCYTES % (MANUAL) 5 % (0-11.0); NEUTROPHILS % (MANUAL) 74 (42-76)
[2020-05-13 16:43] LABS: FERRITIN 138 ng/mL (8-388)
--- NOTE | 2020-05-13 17:40 | NUR ---
MS RN NOTES PATIENT STATED THAT SHE DOESN'T WANT TO DO THE PROCEDURE ANYMORE AND SHE WANTS TO BE LEFT ALONE FOR NOW. REINFORCED TEACHING ABOUT USE OF GOLYTELY AND SORBITOL. PATIENT IS JUST TAKING LITTLE SIPS. EXPLAINED THE RISK AND BENEFITS. INFORMED DR. MERRILL, DR. DOUGLAS, DR. HUGHES AND KENNY ANGELO, ABOUT THE SITUATION.
[2020-05-13] MEDS: SORBITOL SOLUTION 30 ML PO SCH ×2 (17:42→22:25)
--- NOTE | 2020-05-13 18:13 | NUR ---
MS RN NOTES DR. HUGHES WANTS TO DO AN ENEMA INSTEAD. BUT PATIENT STATED "NO."
--- NOTE | 2020-05-13 18:16 | NUR ---
MS RN CLOSING NOTES PATIENT RESTING IN BED. UNCOOPERATIVE. A/O X3. ON ROOM AIR, TOLERATING WELL . NO SOB NOTED. NO S/S OF RESPIRATORY DISTRESS. IV ACCESS ON L UA MIDLINE, INTACT AND PATENT, NS RUNNING @75 ML/HR. WITH SITTER AT THE BEDSIDE. ABLE TO MAKE NEEDS KNOWN. SAFETY MEASURES MAINTAINED. BED IN LOWEST POSITION, BRAKES LOCKED. SIDE RAILS UP X2. CALL LIGHT WITHIN REACH. WILL ENDORSE TO VENDING MACHINE REFILLER FOR CONTINUITY OF CARE.
--- NOTE | 2020-05-13 18:25 | NUR ---
MS RN NOTES DR DESOUZA ORDERED CLEAR LIQUID DIET AFTER MIDNIGHT.
--- NOTE | 2020-05-13 19:48 | NUR ---
RN NOTES PATIENT RESTING IN BED ASLEEP BUT EASY TO WAKE UP ON ROOM AIR, TOLERATING WELL . NO SOB NOTED. NO S/S OF RESPIRATORY DISTRESS. IV ACCESS ON BING MIDLINE, INTACT AND PATENT, NS RUNNING @75 ML/HR. ABLE TO MAKE NEEDS KNOWN. SAFETY MEASURES MAINTAINED. BED IN LOWEST POSITION, BRAKES LOCKED. SIDE RAILS UP X2. CALL LIGHT WITHIN REACH. WILL CONTINUE TO MONITOR.
[2020-05-13] MEDS: IV NS 0.9% 1,000 ML IV PRN (19:54)
--- NOTE | 2020-05-13 21:11 | NUR ---
RN NOTES FAMOTIDINE AND HEPARIN NOT ADMINISTERED PT REFUSEDX3 RISK AND BENEFITS EXPLAINED X3 PT STATED " LEAVE ME ALONE"
[2020-05-13 22:00] VITALS: BP 155/93
--- NOTE | 2020-05-13 22:41 | NUR ---
RN NOTES PT IS REFUSING TO TAKE THE SORBITOL PT STATED " I DON'T WANT TO TAKE THAT" RISK AND BENEFITS EXPLAINED X 3 REFUSED X 3. WILL ATTEMPT AGAIN LATER. WILL CONTINUE TO MONITOR.
[2020-05-14] MEDS: SORBITOL SOLUTION 30 ML PO SCH ×3 (02:31→20:40)
--- NOTE | 2020-05-14 06:17 | NUR ---
RN NOTES PT CONTINUED TO REFUSE SORBITOL AND GOLYTELY PT STATED " I DON'T WANT TO TAKE THAT" RISK AND BENEFITS EXPLAINED X3 PT REFUSED X3. WILL CONTINUE TO MONITOR.
--- NOTE | 2020-05-14 06:50 | NUR ---
RN NOTES PATIENT RESTING IN BED ASLEEP BUT EASY TO WAKE UP ON ROOM AIR, TOLERATING WELL . NO SOB NOTED. NO S/S OF RESPIRATORY DISTRESS. IV ACCESS ON BING MIDLINE, INTACT AND PATENT, NS RUNNING @75 ML/HR. ABLE TO MAKE NEEDS KNOWN. SAFETY MEASURES MAINTAINED. BED IN LOWEST POSITION, BRAKES LOCKED. SIDE RAILS UP X2. CALL LIGHT WITHIN REACH. PT REFUSED PREP FOR SCHEDULED PROCEDURE TODAY. RISKS AND BENEFITS EXPLAINED X 3 PT REFUSED TO TAKE THROUGHOUT THE NIGHT. WILL ENDORSE CARE TO DAY SHIFT NURSE.
--- NOTE | 2020-05-14 07:27 | NUR ---
MS/RN OPENING NOTE RECEIVED PATIENT FROM [facility] USED CAR LOT NURSE. PATIENT IS ASLEEP IN BED, EASILY WOKEN UP. PATIENT IS A/O X3, UNCOOPERATIVE, NO ACUTE DISTRESS NOTED. SITTER AT BEDSIDE. PER [facility] USED [facility] LOT REPORT PATIENT REFUSED GOLYTELY. PATIENT ON ROOM AIR, TOLERATING WELL, NO SOB NOTED, BREATHING EVEN, NO LABORED. SAFETY MEASURES IN PLACE, BED LOCKED AND IN LOWEST POSITION, CALL LIGHT WITHIN REACH. WILL CONTINUE TO MONITOR AND ENSURE SAFETY.
[2020-05-14] MEDS: LEVOTHYROXINE SODIUM 25 MCG TABLET PO SCH (07:49)
[2020-05-14] MEDS: MEROPENEM 500 MG in IV NS 0.9% 100 ML IV SCH ×2 (08:28→20:39)
[2020-05-14] MEDS: MEMANTINE HCL 5 MG TABLET PO SCH (08:28)
[2020-05-14] MEDS: FAMOTIDINE (20 MG) 20 MG TABLET PO SCH ×3 (08:28→20:57)
[2020-05-14] MEDS: HEPARIN SODIUM, PORCINE 5000 UNITS/1 ML VIAL SQ SCH ×2 (08:32→20:56)
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
--- NOTE | 2020-05-14 13:45 | NUR ---
Capacity Declaration: faxed Capacity Declaration paperwork to Dr. Valentin [phone] for conservatorship purposes per [facility] request. See previous notes for details.
[2020-05-14] MEDS ORDERED: POLYETHYLENE GLYCOL 3350 17 GM POWD.PACK PO ONE (14:30)
--- NOTE | 2020-05-14 16:25 | NUR ---
SS Note: Per [place] Public Conservator, Les Morrison's [phone] request, EFE faxed the psychiatry evaluation report to [facility]: [phone] ATTN: Les Morrison. SW will be available as needed.
[2020-05-14] MEDS: SOD FERRIC GLUC 125 MG in IV NS 0.9% 100 ML IV SCH (17:27)
--- NOTE | 2020-05-14 19:12 | NUR ---
MS/RN CLOSING NOTE PATIENT IS ASLEEP IN BED, EASILY WOKEN UP. PATIENT IS A/O X3, UNCOOPERATIVE, NO ACUTE DISTRESS NOTED. SITTER AT BEDSIDE. PATIENT ON ROOM AIR, TOLERATING WELL, NO SOB NOTED, BREATHING EVEN, NO LABORED. SAFETY MEASURES IN PLACE, BED LOCKED AND IN LOWEST POSITION, CALL LIGHT WITHIN REACH. ALL NEEDS MET THROUGHOUT THE SHIFT. WILL ENDORSE TO SUBSTITUTE NURSE NURSE.
--- NOTE | 2020-05-14 19:24 | NUR ---
RN NOTES PATIENT IS ASLEEP IN BED, EASILY WOKEN UP. PATIENT IS A/O X3, NO ACUTE DISTRESS NOTED. SITTER AT BEDSIDE. PATIENT ON ROOM AIR, TOLERATING WELL, NO SOB NOTED, BREATHING EVEN, NON LABORED. SAFETY MEASURES IN PLACE, BED LOCKED AND IN LOWEST POSITION, CALL LIGHT WITHIN REACH. ALL NEEDS MET AT THSI TIME. WILL CONTINUE TO MONITOR.
[2020-05-14 20:00] VITALS: BP 157/78
--- NOTE | 2020-05-15 00:46 | NUR ---
RN NOTES PT IS REFUSING TO TAKE THE SORBITOL DESPITE EXPLANATION OF RISK AND BENEFITS X3 PT REFUSED X3 WILL CONTINUE TO MONITOR.
[2020-05-15] MEDS: SORBITOL SOLUTION 30 ML PO SCH ×5 (01:00→17:00)
[2020-05-15] MEDS: IV NS 0.9% 1,000 ML IV PRN (04:28)
--- NOTE | 2020-05-15 06:06 | NUR ---
RN NOTES PTS STILL REFUSING TO TAKE THE SORBITOL RISK AND BENEFITS EXPLAINED X3 REFUSED X3 WILL CONTINUE TO MONITOR.
--- NOTE | 2020-05-15 06:46 | NUR ---
RN NOTES PATIENT IS ASLEEP IN BED, EASILY WOKEN UP. PATIENT IS A/O X3, NO ACUTE DISTRESS NOTED. PATIENT ON ROOM AIR, TOLERATING WELL, NO SOB NOTED, BREATHING EVEN, NON LABORED. PT HAS IV ACCES ON BING MIDLINE 18 G RUNNING NS AT 75 ML/HR TOLERATING WELL. PT REFUSED SORBITOL ALL THOUGHT HE NIGHT RISK AND BENEFITS WERE EXPLAINED X3 REFUSED MULTIPLE TIMED THROUGHOUT THE NIGHT WILL ENDORSE TO DAY SHIFT NURSE.SAFETY MEASURES IN PLACE, BED LOCKED AND IN LOWEST POSITION, CALL LIGHT WITHIN REACH. ALL NEEDS MET AT THIS TIME. WILL ENDORSE CAR ETO DAY SHIFT NURSE.
--- NOTE | 2020-05-15 07:25 | NUR ---
MS RN NOTES PATIENT IN BED ALERT ORIENTED X 3. NO ACUTE DISTRESS NOTED. BREATHING UNLABORED. IV ACCESS PATENT AND INTACT, NO REDNESS, NO SWELLING NOTED. SAFETY MEASURES IN PLACE. CALL LIGHT WITHIN REACH. WILL CONTINUE TO MONITOR ACCORDINGLY
--- NOTE | 2020-05-15 07:25 | NUR ---
MS KOSTAS NOTES PATIENT IN BED ALERT ORIENTED X 3. NO ACUTE DISTRESS NOTED. BREATHING UNLABORED. IV ACCESS PATENT AND INTACT, NO REDNESS, NO SWELLING NOTED. MARQUEZ CATHETER INTACT DRAINING WELL. SAFETY MEASURES IN PLACE. CALL LIGHT WITHIN REACH. WILL CONTINUE TO MONITOR ACCORDINGLY Addendum: 05/15/20 at 1946 by MANNY ENAMORADO RN DISREGARD ABOVE NOTES, WRONG PATIENT
[2020-05-15] MEDS: LEVOTHYROXINE SODIUM 25 MCG TABLET PO SCH (07:30)
[2020-05-15] MEDS ORDERED: MEMA5TAB PO (08:55)
[2020-05-15] MEDS ORDERED: MERO500V23 IV (08:55)
[2020-05-15] MEDS: MEMANTINE HCL 5 MG TABLET PO SCH (09:00)
[2020-05-15] MEDS: HEPARIN SODIUM, PORCINE 5000 UNITS/1 ML VIAL SQ SCH (09:00)
[2020-05-15] MEDS: FAMOTIDINE (20 MG) 20 MG TABLET PO SCH (09:00)
--- NOTE | 2020-05-15 09:17 | NUR ---
MS RN NOTES HELD HEPARIN PATIENT FOR SURGERY.
[2020-05-15] MEDS: MEROPENEM 500 MG in IV NS 0.9% 100 ML IV SCH (09:39)
--- NOTE | 2020-05-15 09:44 | NUR ---
RN NOTES FOLLOWED UP / [facility] ([phone]) MEDICAL RECORDS REGARDING PATIENT'S FLU/PNEUMOCOCCAL VACCINATION STATUS. PER MEDICAL RECORDS, PATIENT HISTORICALLY REFUSED BOTH VACCINES. RE-OFFERED TO PATIENT AGAIN TODAY BUT PATIENT ALSO REFUSED.
[2020-05-15] MEDS: SOD FERRIC GLUC 125 MG in IV NS 0.9% 100 ML IV SCH (14:14)
[2020-05-15] MEDS ORDERED: BISACODYL (5 MG) 5 MG TABLET.DR PO ONE (15:30)
--- NOTE | 2020-05-15 15:30 | NUR ---
MS RN NOTES PATIENT SEEN AND EVALUATED BY DR MERRILL SPOKE WITH PATIENT AND AGREED TO COLONOSCOPY WITH NEW ORDER FOR Dulcolax 10 MG PO ONCE AND CONTINUE SORBITOL ORDERED AND DISCONTINUE CURRENT DIET, START CLEAR LIQUIDS AND NPO EXCEPT MEDS AFTER MIDNIGHT TONIGHT, ORDERS CLARIFIED AND READ BACK WITH MD, NOTED AND CARRIED OUT.
--- NOTE | 2020-05-15 17:35 | NUR ---
Reynaldo Larose RN NOTES PATIENT REFUSED TO TAKE BOWEL PREP, NOTIFIED DR MCKEON AND DR RINCON, RECEIVED NEW ORDER FROM DR RINCON TO PROCEED WITH DISCHARGE TODAY.
--- NOTE | 2020-05-15 19:00 | NUR ---
MS RN NOTES PATIENT IN BED ALERT ORIENTED X 4. NO ACUTE DISTRESS NOTED. BREATHING UNLABORED. IV ACCESS PATENT AND INTACT, NO REDNESS, NO SWELLING NOTED. SAFETY MEASURES IN PLACE. CALL LIGHT WITHIN REACH. WILL ENDORSE TO NIGHT NURSE FOR CONTINUITY OF CARE. AND DISCHARGE . REPORT GIVEN EJ BOLAND RN SNF, PATIENT REFUSED PHOTO TAKEN
--- NOTE | 2020-05-15 19:50 | NUR ---
MS/RN OPENING NOTE RECEIVED PATIENT SLEEPING IN BED. ALERT AND ORIENTED X 1-2. ABLE TO MAKE NEEDS KNOWN. NO COMPLAINTS OF PAIN AT THIS TIME. IV ACCESS TO LEFT UPPER ARM INTACT AND PATENT. PATIENT TO BE PICKED UP BY [facility] FOR DISCHARGE. REPORT ALREADY GIVEN TO SNF FROM AM NURSE. SITTER IN WITH PATIENT AT THIS TIME. CALL LIGHT WITHIN REACH. ASPIRATION, FALL AND SAFETY PRECAUTIONS MAINTAINED. WILL CONTINUE TO MONITOR.
[2020-05-15 20:00] VITALS: BP 143/101
--- NOTE | 2020-05-15 21:15 | NUR ---
MS/CARNALLITE PLANT OPERATOR NOTE PATIENT WAS DISCHARGED TO [facility]IA [facility] AND 2 LEGAL RECEPTIONIST AT APPROX. 2100. ALL BELONGINGS GIVEN BACK TO PATIENT AND BELONGINGS LIST SIGNED. IV TAKEN OUT. ID BAND REMOVED. PATIENT IS ALERT AND ORIENTED X 2 AT THIS TIME. ABLE TO MAKE NEEDS KNOWN. NO COMPLAINTS OF PAIN NOTED. REPORT GIVEN TO LEGAL RECEPTIONIST. REPORT ALREADY GIVEN TO RN AT SNF. PATIENT REFUSED TO HAVE PHOTOS TAKEN OF RIGHT UPPER ARM REDNESS.
== END 2020-05-15 20:38 | DRG 391 ==
LOC: ER 16:06 → TELE1 17:36 → MEDSG1 05-01 08:16 → MED 05-08 17:06
PROVIDERS: ADMIT Nurse Practitioner Acute Care; ATTEND Internal Medicine
PROC: 30233N1 Transfusion of Nonautologous Red Blood Cells into Peripheral Vein, Percutaneous Approach (ICD-10-PCS; principal; 2020-04-29)
PROC: 05H933Z Insertion of Infusion Device into Right Brachial Vein, Percutaneous Approach (ICD-10-PCS; 2020-04-30)
PROC: 0DB58ZX Excision of Esophagus, Via Natural or Artificial Opening Endoscopic, Diagnostic (ICD-10-PCS; 2020-05-03)
PROC: 0DB98ZX Excision of Duodenum, Via Natural or Artificial Opening Endoscopic, Diagnostic (ICD-10-PCS; 2020-05-03)
PROC: 05HA33Z Insertion of Infusion Device into Left Brachial Vein, Percutaneous Approach (ICD-10-PCS; 2020-05-10)
PROC: B34HZZZ Ultrasonography of Right Upper Extremity Arteries (ICD-10-PCS; 2020-05-13)
DX: K29.70 Gastritis, unspecified, without bleeding (principal); A41.53 Sepsis due to Serratia; J18.9 Pneumonia, unspecified organism; D61.818 Other pancytopenia; D68.59 Other primary thrombophilia; G93.49 Other encephalopathy; L03.113 Cellulitis of right upper limb; I82.621 Acute embolism and thrombosis of deep veins of right upper extremity; I82.890 Acute embolism and thrombosis of other specified veins; L02.411 Cutaneous abscess of right axilla; D50.9 Iron deficiency anemia, unspecified; R73.9 Hyperglycemia, unspecified; K21.9 Gastro-esophageal reflux disease without esophagitis; I10 Essential (primary) hypertension; E03.9 Hypothyroidism, unspecified; Z20.822 Contact with and (suspected) exposure to COVID-19; F29 Unspecified psychosis not due to a substance or known physiological condition; F03.90 Unspecified dementia, unspecified severity, without behavioral disturbance, psychotic disturbance, mood disturbance, and anxiety; F41.9 Anxiety disorder, unspecified; E87.6 Hypokalemia; E78.5 Hyperlipidemia, unspecified; I67.2 Cerebral atherosclerosis; K21.00 Gastro-esophageal reflux disease with esophagitis, without bleeding; Z86.718 Personal history of other venous thrombosis and embolism; Z91.19 Patient's noncompliance with other medical treatment and regimen; K74.60 Unspecified cirrhosis of liver; D69.6 Thrombocytopenia, unspecified; Z79.890 Hormone replacement therapy; K63.89 Other specified diseases of intestine
CPT/HCPCS: 36410; 36415; 70450-TC; 71045-TC; 71260-TC; 76700-TC; 76882; 80048-TC; 80053-TC; 80076-TC; 81001; 82272-TC; 82378; 82728-TC; 82784; 82962-TC; 83540-TC; 83605-TC; 83735-TC; 84100-TC; 84155; 84165; 84439-TC; 84443-TC; 84484-TC; 85025-TC; 85610-TC; 85730-TC; 86225; 86235; 86334; 86431-TC; 86706; 86803; 86850-TC; 87040-TC; 87086-TC; 87186-TC; 87340; 88305-TC; 92526; 92611-TC; 93971-TC; 97116-TC; 97530-TC; C9113; G0378; J0696; J1644; J2185; J2704; J2916; J3010; J3475; J3480; J7030; J7040; J7050; J7060; P9016-BL; Q9967; U0003

== ENCOUNTER 2020-11-10 17:32 | Inpatient (IN) | payer MEDICARE, OTHER ==
[~2020-11-10] VITALS: Ht 157.5 cm; Wt 48.3 kg
[~2020-11-10 17:32] MED LIST: ACET325T53 PO; CLON0.1T PO; CRAN3875 PO; CRAN425C6 PO; DOCU-141 PO; HYDR-3973 PO; LEVO25TA7 PO; MAG355OR18 PO; MEMA5TAB PO; MERO500V23 IV; ONDA4TAB11 PO; PANT40TA49 PO
[2020-11-10] MEDS ORDERED: ASCO-352 PO (17:51)
[2020-11-10] MEDS ORDERED: CHOL100062 PO (17:51)
[2020-11-10] MEDS ORDERED: MAGN400O6 PO (17:51)
[2020-11-10] MEDS ORDERED: ACET-2605 PO ×2 (17:51)
--- NOTE | 2020-11-10 17:59 | NUR ---
MOVE SHEET SUBMITTED AND CALLED FOR TELE BED.
[2020-11-10] MEDS ORDERED: IV NS 0.9% 500 ML BAG IV ONE (18:00)
[2020-11-10 18:32] LABS: BASOPHILS # (AUTO) 0.2 K/uL (0.0-0.2); BASOPHILS % (AUTO) 1.7 % (0.0-2.0); EOSINOPHILS % (AUTO) 4.4 % (0.0-6.0); LYMPHOCYTES # (AUTO) 2.1 K/uL (0.8-4.8); LYMPHOCYTES % (AUTO) 17.6 % (20.0-44.0); MEAN CORPUSCULAR HGB CONC 27 g/dl (31.0-36.0); MEAN CORPUSCULAR VOLUME 52 fL (82-100); MONOCYTES % (AUTO) 8.2 % (2.0-12.0); NEUTROPHILS # (AUTO) 8.1 K/uL (1.8-8.9); NEUTROPHILS % (AUTO) 68.1 % (43.0-81.0); WHITE BLOOD COUNT (AUTO) 11.9 K/uL (4.3-11.0)
[2020-11-10 18:34] LABS: ALANINE AMINOTRANSFERASE < 6 U/L (12-78); ALBUMIN 2.3 g/dL (3.4-5.0); ALKALINE PHOSPHATASE 71 U/L (46-116); ASPARTATE AMINOTRANSFERASE 9 U/L (15-37); BILIRUBIN,DIRECT 0.1 mg/dL (0.0-0.2); BILIRUBIN,TOTAL 0.3 mg/dL (0.2-1.0); CALCIUM, SERUM 8.5 mg/dL (8.5-10.1); CARBON DIOXIDE 26 mmol/L (21-32); CHLORIDE 101 mmol/L (98-107); CREATININE 0.4 mg/dL (0.6-1.3); GLUCOSE 158 mg/dL (74-106); POTASSIUM 3.8 mmol/L (3.5-5.1); SODIUM SERUM 137 mmol/L (136-145); TOTAL PROTEIN, SERUM 6.4 g/dL (6.4-8.2); UREA NITROGEN, BLOOD 13 mg/dL (7-18)
[2020-11-10 18:36] LABS: HEMATOCRIT 18 % (33-45); HEMOGLOBIN 4.7 g/dL (11.5-14.8)
[2020-11-10 18:37] LABS: PLATELET COUNT (AUTO) 903 K/uL (150-450)
--- NOTE | 2020-11-10 19:16 | NUR ---
EPIC CALLED UTILITY SALES REPRESENTATIVE PAGED
--- NOTE | 2020-11-10 19:20 | NUR ---
REPORT RECEIVED BY DAY SHIFT RN FOR SUSANNE.
[2020-11-10 19:30] LABS: EOSINOPHILS % (MANUAL) 4 % (0-4); LYMPHOCYTES % (MANUAL) 5 % (16-48); MONOCYTES % (MANUAL) 23 % (0-11.0); NEUTROPHILS % (MANUAL) 68 (42-76)
--- NOTE | 2020-11-10 19:30 | NUR ---
PATIENT IN BED, RESTING COMFORTABLY. VSS. WILL MONITOR AND ASSESS PATIENT FOR ANY CHANGES THROUGHOUT SHIFT.
--- NOTE | 2020-11-10 20:05 | NUR ---
BLOOD TRANSFUSION INITIATED. WILL ASSESS AND MONITOR PATIENT FOR ANY CHANGES.
[2020-11-10] MEDS ORDERED: ACETAMINOPHEN 325 MG TABLET PO PRN (20:30)
[2020-11-10] MEDS ORDERED: ZOLPIDEM TARTRATE 5 MG TABLET PO PRN (20:30)
[2020-11-10] MEDS ORDERED: Z GUARD REMEDY 2 OZ OINT TP PRN (20:30)
[2020-11-10] MEDS ORDERED: MAG HYDROX/AL HYDROX/SIMETH 30 ML UDC PO PRN (20:30)
[2020-11-10] MEDS ORDERED: HYDROCODONE/APAP 5/325MG TABLET PO PRN (20:30)
[2020-11-10] MEDS ORDERED: MAGNESIUM HYDROXIDE 30 ML UDC PO PRN (20:30)
[2020-11-10] MEDS ORDERED: ONDANSETRON HCL/PF 4 MG/2 ML VIAL IVP PRN (20:30)
--- NOTE | 2020-11-10 22:09 | NUR ---
called lab for covid swabs
--- NOTE | 2020-11-10 22:37 | NUR ---
covid swabs sent to lab
--- NOTE | 2020-11-10 23:30 | NUR ---
BLOOD TRANSFUSION COMPLETED. NO ADVERSE REACTIONS NOTED. PT VSS. WILL CONTINUE TO MONITOR AND ASSESS FOR ANY CHANGES.
--- NOTE | 2020-11-10 23:52 | NUR ---
RECIEVED BED 104
[2020-11-11] VITALS (7 sets, daily range): BP systolic 134–166; BP diastolic 71–77
--- NOTE | 2020-11-11 00:15 | NUR ---
REPORT GIVEN TO KOSTAS ARREOLA FOR SUSANNE.
[2020-11-11] MEDS: DOCUSATE SODIUM 100 MG CAPSULE PO SCH ×2 (01:20→21:10)
--- NOTE | 2020-11-11 01:20 | NUR ---
ADMISSION RN NOTE ADMIT 80 YEAR OLD FEMALE TO [facility] UNIT AT ROOM 104 WITH FOLLOWING DIAGNOSIS: SEVERE ANEMIA,HGB 4.7 PATIENT RECEIVED 1 UNIT RED BLOOD CELL IN ER,ALERT ORIENTED X2 VERBALLY RESPONSIVE ANXIOUS,RISK FOR FALL,ON MED SURG MONITORING,IV SITE IS ON RIGHT FOREARM INTACT PATENT SAFETY MEASURE IMPLEMENT BED IN LOW POSITION AND LOCKED,BED ALARM IS ON CONTINUE TO MONITOR
--- NOTE | 2020-11-11 01:25 | NUR ---
RN NOTE PATIENT REFUSED COLACE AT THIS TIME,CONTINUE TO MONITOR
--- NOTE | 2020-11-11 06:20 | NUR ---
RN NOTE PATIENT REMAINS ON ALERT ORIENTED X2 S/P CONFUSION ON ROOM AIR O2:96% IV SITE IS ON RIGHT FOREARM INTACT PATENT NO SOB NOT ACUTE DISTRESS NOTED,KEEP CLEAN AND DRY ALL THE TIME,KEEP COMFORTABLE BED IN LOW POSITION AND LOCKED BED ALARM IS ON ENDORSE NEXT COMING SHIFT FOR CONTINUATION OF CARE
[2020-11-11 06:50] LABS: BASOPHILS # (AUTO) 0.2 K/uL (0.0-0.2); BASOPHILS % (AUTO) 1.7 % (0.0-2.0); EOSINOPHILS % (AUTO) 4.4 % (0.0-6.0); HEMATOCRIT 23 % (33-45); LYMPHOCYTES # (AUTO) 1.5 K/uL (0.8-4.8); LYMPHOCYTES % (AUTO) 13.9 % (20.0-44.0); MEAN CORPUSCULAR HGB CONC 30 g/dl (31.0-36.0); MEAN CORPUSCULAR VOLUME 62 fL (82-100); MONOCYTES # (AUTO) 0.8 K/uL (0.1-1.30); MONOCYTES % (AUTO) 7.2 % (2.0-12.0); NEUTROPHILS # (AUTO) 8.1 K/uL (1.8-8.9); NEUTROPHILS % (AUTO) 72.8 % (43.0-81.0); PLATELET COUNT (AUTO) 784 K/uL (150-450); RED BLOOD CELL COUNT(AUTO) 3.69 MIL/uL (4.0-5.2); WHITE BLOOD COUNT (AUTO) 11.1 K/uL (4.3-11.0)
[2020-11-11 07:00] LABS: HEMOGLOBIN 6.9 g/dL (11.5-14.8)
--- NOTE | 2020-11-11 07:07 | NUR ---
RN NOTE RECEIVED LAB RESULTS HGB 6.9 MD ORDERED IF LESS 7 GIVE ON UNIT RED BLOOD CELL NOTED AND CARRIED OUT ENDORSE NEXT COMING SHIFT FOR CONTINUATION OF CARE
[2020-11-11 07:14] LABS: CALCIUM, SERUM 8.4 mg/dL (8.5-10.1); CARBON DIOXIDE 27 mmol/L (21-32); CHLORIDE 103 mmol/L (98-107); CREATININE 0.4 mg/dL (0.6-1.3); GLUCOSE 164 mg/dL (74-106); PHOSPHORUS 3.8 mg/dL (2.5-4.9); POTASSIUM 3.5 mmol/L (3.5-5.1); SODIUM SERUM 138 mmol/L (136-145); UREA NITROGEN, BLOOD 13 mg/dL (7-18)
--- NOTE | 2020-11-11 07:20 | NUR ---
RN Opening Notes Received patient comfortably resting in bed. Patient awake and verbally responsive to verbal and tactile stimuli. No SOB, no distress, denies pain and discomfort at this time. Patient's IV access on RFA intact, patent and flushing well. Call light within easy reach, bed locked and in lowest position. Will continue to monitor.
[2020-11-11 07:26] LABS: CHOLESTEROL 160 mg/dL (<200); HDL CHOLESTEROL 32 mg/dL (40-60); LDL 102 mg/dL (0-99); TRIGLYCERIDES 128 mg/dL (30-150)
[2020-11-11] MEDS ORDERED: PANTOPRAZOLE 40 MG TABLET.DR PO SCH (07:30)
[2020-11-11] MEDS: LEVOTHYROXINE SODIUM 25 MCG TABLET PO SCH (07:51)
[2020-11-11 10:22] LABS: IRON, SERUM 11 ug/dl (50-175); TOTAL IRON BINDING CAPACITY 287 ug/dl (250-450)
[2020-11-11 10:42] LABS: FERRITIN 10 ng/mL (8-388)
[2020-11-11 12:40] LABS: EOSINOPHILS % (MANUAL) 3 % (0-4); LYMPHOCYTES % (MANUAL) 12 % (16-48); MONOCYTES % (MANUAL) 6 % (0-11.0); NEUTROPHILS % (MANUAL) 79 (42-76)
--- NOTE | 2020-11-11 16:30 | NUR ---
RN Notes 1 PRBC transfusing at this time, patient tolerating transfusion well. No transfusion reaction noted, patient denies pain and discomfort, VS WNL. Will continue to monitor.
[2020-11-11] MEDS: CHOLECALCIFEROL 1,000 UNIT TABLET (VIT D3) PO SCH (17:47)
[2020-11-11] MEDS: ASCORBIC ACID 500 MG TABLET PO SCH (17:47)
[2020-11-11] MEDS: QUETIAPINE FUMARATE 25 MG TABLET PO SCH (17:47)
--- NOTE | 2020-11-11 18:37 | NUR ---
RN Closing Notes Patient comfortably resting in bed, no SOB, no distress. Patient is awake and is responsive to verbal and tactile stimuli. VS within patient's baseline parameters. IV access on LFA intact and patent. All due meds given as ordered, transfused 1 PRBC per MD's order which patient tolerated well. Kept patient clean and dry. Patient still with episodes of attempting to pull lines and tubings, on B wrist and hand mitten restraints per MDs order. Skin checks and circulation done Q2H, least alternative measures attempted but ineffective. Will endorse care to incoming nurse for continuity of care.
--- NOTE | 2020-11-11 19:00 | NUR ---
RN Notes Completed transfusion of 1 PRBC. Patient tolerated transfusion well, no transfusion reaction noted. VS WNL. Endorsed to incoming nurse.
[2020-11-11] MEDS: PANTOPRAZOLE 40 MG VIAL IV SCH (21:10)
[2020-11-11] MEDS: DIVALPROEX SODIUM 125 MG CAP.SPRINK PO SCH (21:10)
[2020-11-12 04:00] VITALS: BP 129/59
[2020-11-12 06:13] LABS: BASOPHILS # (AUTO) 0.1 K/uL (0.0-0.2); BASOPHILS % (AUTO) 1.5 % (0.0-2.0); EOSINOPHILS % (AUTO) 5.2 % (0.0-6.0); HEMATOCRIT 25 % (33-45); HEMOGLOBIN 7.8 g/dL (11.5-14.8); LYMPHOCYTES # (AUTO) 1.5 K/uL (0.8-4.8); LYMPHOCYTES % (AUTO) 15.4 % (20.0-44.0); MEAN CORPUSCULAR HGB CONC 32 g/dl (31.0-36.0); MEAN CORPUSCULAR VOLUME 65 fL (82-100); MONOCYTES # (AUTO) 0.7 K/uL (0.1-1.30); MONOCYTES % (AUTO) 7.7 % (2.0-12.0); NEUTROPHILS # (AUTO) 6.8 K/uL (1.8-8.9); NEUTROPHILS % (AUTO) 70.2 % (43.0-81.0); PLATELET COUNT (AUTO) 734 K/uL (150-450); RED BLOOD CELL COUNT(AUTO) 3.82 MIL/uL (4.0-5.2); WHITE BLOOD COUNT (AUTO) 9.6 K/uL (4.3-11.0)
[2020-11-12 06:37] LABS: ALANINE AMINOTRANSFERASE < 6 U/L (12-78); ALBUMIN 2.2 g/dL (3.4-5.0); ALKALINE PHOSPHATASE 82 U/L (46-116); ASPARTATE AMINOTRANSFERASE 8 U/L (15-37); CALCIUM, SERUM 8.3 mg/dL (8.5-10.1); CARBON DIOXIDE 26 mmol/L (21-32); CHLORIDE 105 mmol/L (98-107); CREATININE 0.4 mg/dL (0.6-1.3); GLUCOSE 159 mg/dL (74-106); MAGNESIUM 1.9 mg/dL (1.8-2.4); POTASSIUM 3.2 mmol/L (3.5-5.1); SODIUM SERUM 139 mmol/L (136-145); TOTAL PROTEIN, SERUM 6.1 g/dL (6.4-8.2); UREA NITROGEN, BLOOD 8 mg/dL (7-18)
[2020-11-12] MEDS: PANTOPRAZOLE 40 MG VIAL IV SCH ×2 (08:21→21:39)
[2020-11-12] MEDS: DIVALPROEX SODIUM 125 MG CAP.SPRINK PO SCH ×2 (08:21→21:39)
[2020-11-12] MEDS: QUETIAPINE FUMARATE 25 MG TABLET PO SCH ×2 (08:22→17:36)
[2020-11-12] MEDS: LEVOTHYROXINE SODIUM 25 MCG TABLET PO SCH (08:22)
--- NOTE | 2020-11-12 08:59 | NUR ---
RN OPENING NOTES; PT A/OX2-2. PT IS COMBATIVE AND ATTEMPTS TO HIT AND PULL IV LINES. ATTEMPTED TO REDIRECT PT AND DECREASE STIMULI TO NO AVAIL. PT 02 SAT AT 98% ON RA. SKIN IS INTACT. PT ON SOFT RESTRAINTS, NEED TO RENEW ORDER AT 11AM. PT ON A LIQUID DIET AND TOLERATING IT WELL. IV ACCESS ON L FA#20. PT BED IN LOWEST POSITION WITH BED LOCK. WILL CONTINUE TO MONITOR.
[2020-11-12] MEDS ORDERED: POTASSIUM CHLORIDE 20 MEQ POWDER PACKET PO ONE (10:30)
[2020-11-12 12:00] VITALS: BP 140/77
[2020-11-12] MEDS: SOD FERRIC GLUC 125 MG in IV NS 0.9% 100 ML IV SCH (13:50)
--- NOTE | 2020-11-12 15:45 | NUR ---
RN NOTES; RECEIVED CALL TO CONTACT PT SISTER TO GET APPROVAL FOR EGD, COLONOSCOPY AND POSSIBLE G TUBE PLACEMENT. CALLED DIVYA BARNES, PT SISTER HOME # [phone]. SISTER STATED SHE GIVE APPROVAL FOR PROCEDURES. WITNESS BY ROSE CHASE RN. WILL INFORM MIKE SAAVEDRA. Addendum: 11/12/20 at 1815 by MAGDY VOSS RN APPROVED FOR NG TUBE. NOT G TUBE.
[2020-11-12] MEDS: ASCORBIC ACID 500 MG TABLET PO SCH (17:36)
[2020-11-12] MEDS: CHOLECALCIFEROL 1,000 UNIT TABLET (VIT D3) PO SCH (17:36)
--- NOTE | 2020-11-12 18:32 | NUR ---
RN CLOSING NOTES; PT A/OX2. PT CONTINUES TO BE COMBATIVE AND ATTEMPTS TO HIT AND PULL IV LINES. ATTEMPTED TO REDIRECT PT AND DECREASE STIMULI TO NO AVAIL. PT 02 SAT AT 98% ON RA. SKIN IS INTACT. PT ON SOFT RESTRAINTS, RENEWED AT 10:30AM. PT ON A LIQUID DIET AND TOLERATING IT WELL. IV ACCESS ON L FA#20. PT BED IN LOWEST POSITION WITH BED LOCK. PT KEPT CLEAN, DRY AND COMFORTABLE. ENDORSED TO SOCIAL WORK ASSOCIATE IN STABLE CONDITION.
[2020-11-12 20:00] VITALS: BP 125/59
--- NOTE | 2020-11-12 20:00 | NUR ---
MS RN NOTES PTS IN BED A/OX2. CONFUSED AND COMBATIVE , PTS ON R/A 02 SAT AT 98% . SKIN IS INTACT. PT ON SOFT RESTRAINTS, TO PREVENT FROM PULLING INVASIVE TUBING . PT ON A LIQUID DIET AND TOLERATING IT WELL. IV ACCESS ON L FA#20. PT BED IN LOWEST POSITION WITH BED LOCK. PT KEPT CLEAN, DRY AND COMFORTABLE V/S STABLE AFEBRILE , WILL CONTINUE TO MONITOR PTS.
[2020-11-12] MEDS: DOCUSATE SODIUM 100 MG CAPSULE PO SCH (21:39)
[2020-11-13] VITALS (7 sets, daily range): BP systolic 131–148; BP diastolic 68–80
--- NOTE | 2020-11-13 04:30 | NUR ---
ms rn notes Pts transfer to [facility] room 311-2, in stable condition ,report given to Janene for continuity of care , vital signs stable afebrile .will continue to monitor pts.
--- NOTE | 2020-11-13 04:35 | NUR ---
RN NOTE RECEIVED PT FROM [facility] VIA BED, ACCOMPANIED BY CREDIT CONTROL ADMINISTRATOR, TO RM.[id number]. PT A/OX1-2, CONFUSED WITH EPISODES OF YELLING OUT AND BEING COMBATIVE. PT WITH LOUISA. SOFT WRIST RESTRAINT D/T ATTEMPTING TO PULL OUT LINES AND NONCOMPLIANT WITH SAFETY INSTRUCTIONS. SKIN ASSESSED WITH NO S/S OF COMPLICATIONS NOTED. WILL MONITOR/VISUAL CHECKS Q15MIN AND NEEDED. PT ON ROOM AIR AND HANNAH WELL. NO SOB. SAFETY MEASURES IN PLACE, BED IN LOWEST LOCKED POSITION, S/R UP X2, CALL LIGHT WITHIN REACH. WILL CONTINUE TO MONITOR.
--- NOTE | 2020-11-13 07:00 | NUR ---
RN CLOSING NOTE PT AWAKE IN BED, A/OX1-2, VERBAL BUT WITH CONFUSION, WITH EPISODES OF YELLING OUT AND BEING COMBATIVE. LOUISA. SOFT WRIST RESTRAINTS IN PLACE D/T ATTEMPTING TO PULL OUT LINES AND NONCOMPLIANT WITH SAFETY INSTRUCTIONS. SKIN ASSESSED WITH NO S/S OF COMPLICATIONS NOTED. MONITORED Q15MIN AND NEEDED. PT IN NO ACUTE DISTRESS. NO SOB. SAFETY MEASURES MAINTAINED, BED IN LOWEST LOCKED POSITION, S/R UP X2, CALL LIGHT WITHIN REACH.
--- NOTE | 2020-11-13 07:12 | NUR ---
MS RN OPENING NOTE PT AWAKE IN BED, A/OX1-2,ABLE TO MAKE NEEDS KNOWN BUT USUALLY UNCOOPERATIVE/ COMBATIVE. WITH KNOWN EPISODE OF YELLING OUT. NONE AT THIS TIME. WITH BILATERAL SOFT RESTRAINT, WITH GOOD CIRCULATION ON BOTH HANDS. WITH LEFT UPPER ARM IV ACCESS ON SALINE LOCK. COMFORT MEASURES PROVIDED. ON FULL LIQUID DIET, TOLERATED WELL. SAFETY MEASURES MAINTAINED WITH BED IN LOWEST LOCKED POSITION, SIDERAILS UP X2, CALL LIGHT AND TABLE WITHIN REACH AT ALL TIMES. WILL CONTINUE MONITORING PATIENT.
[2020-11-13 07:14] LABS: BASOPHILS # (AUTO) 0.1 K/uL (0.0-0.2); BASOPHILS % (AUTO) 1.3 % (0.0-2.0); EOSINOPHILS % (AUTO) 6.2 % (0.0-6.0); HEMATOCRIT 27 % (33-45); HEMOGLOBIN 8.3 g/dL (11.5-14.8); LYMPHOCYTES # (AUTO) 1.6 K/uL (0.8-4.8); MEAN CORPUSCULAR HGB CONC 30 g/dl (31.0-36.0); MEAN CORPUSCULAR VOLUME 64 fL (82-100); MONOCYTES # (AUTO) 0.8 K/uL (0.1-1.30); MONOCYTES % (AUTO) 8.8 % (2.0-12.0); NEUTROPHILS # (AUTO) 5.8 K/uL (1.8-8.9); NEUTROPHILS % (AUTO) 65.7 % (43.0-81.0); PLATELET COUNT (AUTO) 831 K/uL (150-450); RED BLOOD CELL COUNT(AUTO) 4.28 MIL/uL (4.0-5.2); WHITE BLOOD COUNT (AUTO) 8.8 K/uL (4.3-11.0)
[2020-11-13 07:54] LABS: CALCIUM, SERUM 8.5 mg/dL (8.5-10.1); CARBON DIOXIDE 27 mmol/L (21-32); CHLORIDE 107 mmol/L (98-107); CREATININE 0.5 mg/dL (0.6-1.3); GLUCOSE 140 mg/dL (74-106); POTASSIUM 4.2 mmol/L (3.5-5.1); SODIUM SERUM 142 mmol/L (136-145); UREA NITROGEN, BLOOD 13 mg/dL (7-18)
[2020-11-13] MEDS: LEVOTHYROXINE SODIUM 25 MCG TABLET PO SCH (08:36)
[2020-11-13] MEDS: QUETIAPINE FUMARATE 25 MG TABLET PO SCH ×2 (09:06→18:28)
[2020-11-13] MEDS: PANTOPRAZOLE 40 MG VIAL IV SCH ×2 (09:06→21:22)
[2020-11-13] MEDS: DIVALPROEX SODIUM 125 MG CAP.SPRINK PO SCH ×2 (09:06→21:22)
--- NOTE | 2020-11-13 11:00 | NUR ---
MS RN NOTE SEEN BY DR. SAAVEDRA
[2020-11-13 12:07] LABS: EOSINOPHILS % (MANUAL) 11 % (0-4); LYMPHOCYTES % (MANUAL) 16 % (16-48); MONOCYTES % (MANUAL) 6 % (0-11.0); NEUTROPHILS % (MANUAL) 67 (42-76)
[2020-11-13] MEDS: SOD FERRIC GLUC 125 MG in IV NS 0.9% 100 ML IV SCH (15:30)
[2020-11-13] MEDS: ASCORBIC ACID 500 MG TABLET PO SCH (18:28)
[2020-11-13] MEDS: CHOLECALCIFEROL 1,000 UNIT TABLET (VIT D3) PO SCH (18:28)
--- NOTE | 2020-11-13 19:00 | NUR ---
MS RN CLOSING NOTE PT AWAKE IN BED, A/OX1-2,ABLE TO MAKE NEEDS KNOWN BUT USUALLY UNCOOPERATIVE/ COMBATIVE. WITH KNOWN EPISODE OF YELLING OUT. NONE AT THIS TIME. WITH BILATERAL SOFT RESTRAINT, WITH GOOD CIRCULATION ON BOTH HANDS. WITH LEFT UPPER ARM IV ACCESS ON SALINE LOCK. COMFORT MEASURES PROVIDED. ON FULL LIQUID DIET, TOLERATED WELL. SAFETY MEASURES MAINTAINED WITH BED IN LOWEST LOCKED POSITION, SIDERAILS UP X2, CALL LIGHT AND TABLE WITHIN REACH AT ALL TIMES. WILL ENDORSE TO NEXT SHIFT FOR CONTINUITY OF CARE.
--- NOTE | 2020-11-13 20:00 | NUR ---
MS RN OPENING NOTES: RECEIVED PATIENT AWAKE IN BED, BED IN LOW POSITION, CALL LIGHTS WITHIN REACH, NO COMPLAIN OF PAIN AND DISCOMFORT AT THIS TIME, PATIENT IS A/O X1 KNOWN COMBATIVE, BUT WITH CALM APPEARANCE AT THIS TIME, ON BILATERAL RESTRAINT CHECK RESTRAIN SITE, NO SKIN CHANGES ON WAS OBSERVED, PATIENT WITH BING IV LINE INFUSING WELL.ON FREQUENT ROUNDS, WILL CONTINUE TO MONITOR.
[2020-11-13] MEDS: DOCUSATE SODIUM 100 MG CAPSULE PO SCH (21:22)
[2020-11-14 04:00] VITALS: BP 135/70
[2020-11-14 06:30] LABS: BASOPHILS # (AUTO) 0.1 K/uL (0.0-0.2); BASOPHILS % (AUTO) 1.4 % (0.0-2.0); EOSINOPHILS % (AUTO) 8.6 % (0.0-6.0); HEMATOCRIT 26 % (33-45); HEMOGLOBIN 7.9 g/dL (11.5-14.8); LYMPHOCYTES # (AUTO) 1.6 K/uL (0.8-4.8); LYMPHOCYTES % (AUTO) 21.1 % (20.0-44.0); MEAN CORPUSCULAR HGB CONC 31 g/dl (31.0-36.0); MEAN CORPUSCULAR VOLUME 66 fL (82-100); MONOCYTES # (AUTO) 0.7 K/uL (0.1-1.30); MONOCYTES % (AUTO) 8.7 % (2.0-12.0); NEUTROPHILS # (AUTO) 4.6 K/uL (1.8-8.9); NEUTROPHILS % (AUTO) 60.2 % (43.0-81.0); PLATELET COUNT (AUTO) 722 K/uL (150-450); RED BLOOD CELL COUNT(AUTO) 3.93 MIL/uL (4.0-5.2); WHITE BLOOD COUNT (AUTO) 7.7 K/uL (4.3-11.0)
[2020-11-14 06:40] LABS: CALCIUM, SERUM 8.5 mg/dL (8.5-10.1); CARBON DIOXIDE 27 mmol/L (21-32); CHLORIDE 105 mmol/L (98-107); CREATININE 0.3 mg/dL (0.6-1.3); GLUCOSE 124 mg/dL (74-106); POTASSIUM 3.4 mmol/L (3.5-5.1); SODIUM SERUM 141 mmol/L (136-145); UREA NITROGEN, BLOOD 11 mg/dL (7-18)
--- NOTE | 2020-11-14 07:01 | NUR ---
RN CLOSING NOTE: PATIENT SLEEP IN BED COMFORTABLY,AROUSABLE TO STIMULI, BED IN LOW POSITION CALL LIGHTS WITHIN REACH, NO COMPLAIN OF PAIN AND DISCOMFORT AT THIS TIME: WITH IV LINE AT LFA #22 SL INFUSING WELL, PATIENT HAS BILATERAL RESTRAINT RELEASE Q2H DUE TO AGITATION AND PULLING OF IV LINE, NO SOB NOTED, DUE MEDS GIVEN, KEPT CLEAN AND DRY, ENDORSE TO INCOMING SHIFT.
[2020-11-14 08:00] VITALS: BP 147/63
[2020-11-14] MEDS ORDERED: POTASSIUM CHLORIDE 20 MEQ TAB.PRT.SR PO SCH (09:30)
[2020-11-14] MEDS: PANTOPRAZOLE 40 MG VIAL IV SCH ×2 (10:20→21:05)
[2020-11-14] MEDS: DIVALPROEX SODIUM 125 MG CAP.SPRINK PO SCH ×2 (10:21→21:06)
[2020-11-14] MEDS: LEVOTHYROXINE SODIUM 25 MCG TABLET PO SCH (10:21)
[2020-11-14] MEDS: QUETIAPINE FUMARATE 25 MG TABLET PO SCH ×2 (10:21→17:21)
[2020-11-14 12:00] VITALS: BP 148/94
[2020-11-14 16:08] VITALS: BP 126/59
[2020-11-14] MEDS: SOD FERRIC GLUC 125 MG in IV NS 0.9% 100 ML IV SCH (17:20)
[2020-11-14] MEDS: CHOLECALCIFEROL 1,000 UNIT TABLET (VIT D3) PO SCH (17:21)
[2020-11-14] MEDS: ASCORBIC ACID 500 MG TABLET PO SCH (17:21)
--- NOTE | 2020-11-14 19:05 | NUR ---
MS RN CLOSING NOTE PT AWAKE IN BED, A/OX1-2,ABLE TO MAKE NEEDS KNOWN BUT USUALLY UNCOOPERATIVE/ COMBATIVE. WITH KNOWN EPISODE OF YELLING OUT. NONE AT THIS TIME. WITH LEFT UPPER ARM IV ACCESS ON SALINE LOCK. COMFORT MEASURES PROVIDED. ON FULL LIQUID DIET, TOLERATED WELL. SAFETY MEASURES MAINTAINED WITH BED IN LOWEST LOCKED POSITION, SIDERAILS UP X2, CALL LIGHT AND TABLE WITHIN REACH AT ALL TIMES. WILL ENDORSE TO NEXT SHIFT FOR CONTINUITY OF CARE.
--- NOTE | 2020-11-14 19:30 | NUR ---
MS RN OPENING NOTE RECEIVED PT AWAKE IN BED. A/O X1-2 WITH PERIODS OF CONFUSION. PT IS STABLE ON ROOM AIR. NO SOB OR S/S OF RESPIRATORY DISTRESS NOTED. PT HAS NO C/O PAIN OR DISCOMFORT AT THIS TIME. IV ACCESS IN LFA #20 SALINE-LOCKED, INTACT AND PATENT. SAFETY PRECAUTIONS MAINTAINED. BED IN LOWEST LOCKED POSITION, HOB ELEVATED, SIDE RAILS UP X3. BED ALARM ON. CALL LIGHT AND TABLE WITHIN REACH. WILL CONTINUE WITH PLAN OF CARE.
[2020-11-14 20:00] VITALS: BP 128/61
[2020-11-14] MEDS: DOCUSATE SODIUM 100 MG CAPSULE PO SCH (21:06)
[2020-11-15 04:00] VITALS: BP 131/82
--- NOTE | 2020-11-15 06:17 | NUR ---
MS RN CLOSING NOTE PT IS IN BED WITH EYES CLOSED, AROUSABLE TO STIMULATION. A/O X2 WITH PERIODS OF CONFUSION. PT IS STABLE ON ROOM AIR. NO SOB OR S/S OF RESPIRATORY DISTRESS NOTED. PT HAS NO C/O PAIN OR DISCOMFORT AT THIS TIME. IV ACCESS IS INTACT, PATENT, AND FLUSHING WELL. ALL NEEDS HAVE BEEN MET. SAFETY PRECAUTIONS MAINTAINED AT ALL TIMES. BED IN LOWEST LOCKED POSITION, HOB ELEVATED, SIDE RAILS UP X3. BED ALARM ON. CALL LIGHT AND TABLE WITHIN REACH. WILL ENDORSE TO ONCOMING NURSE FOR SUSANNE.
[2020-11-15] MEDS: LEVOTHYROXINE SODIUM 25 MCG TABLET PO SCH (07:20)
--- NOTE | 2020-11-15 07:23 | NUR ---
MS RN OPENING NOTES RECEIVED PT AWAKE IN BED IN NO ACUTE SIGN SOF DISTRESS. HOB ELEVATED. A/O X2. CALM AND QUIET AT THIS TIME. ABLE TO MAKE NEEDS KNOWN, DENIES PAIN OR ANY DISCOMFORTS. ON ROOM AIR, BREATHING EVEN AND UNLABORED. IV SL ON RFA G#20 INTACT, PATENT AND FLUSHES WELL. SAFETY MEASURES IN PLACE: CALL LIGHT WITHIN REACH. BED ON LOWEST AND LOCKED POSITION WITH SIDE RAILS UP X2. BED ALARM ON. WILL CONTINUE TO MONITOR PT.
[2020-11-15 08:31] VITALS: BP 126/72
[2020-11-15] MEDS: PANTOPRAZOLE 40 MG VIAL IV SCH (08:50)
[2020-11-15] MEDS: QUETIAPINE FUMARATE 25 MG TABLET PO SCH (08:51)
[2020-11-15] MEDS: DIVALPROEX SODIUM 125 MG CAP.SPRINK PO SCH (08:51)
[2020-11-15] MEDS ORDERED: QUET25TA PO (10:36)
[2020-11-15] MEDS ORDERED: DIVA125C2 PO (10:36)
[2020-11-15] MEDS ORDERED: POTASSIUM CHLORIDE 20 MEQ TAB.PRT.SR PO ONE (11:00)
[2020-11-15] MEDS: SOD FERRIC GLUC 125 MG in IV NS 0.9% 100 ML IV SCH (14:12)
--- NOTE | 2020-11-15 14:48 | NUR ---
RN NOTES PT FOR DISCHARGE TO [facility] THIS AFTERNOON, CALLED [facility]EL # [phone] AND GAVE REPORT TO DANYELLE, CHARGE NURSE. ALSO CALLED PT'S SISTER DIVYA KHANNA AT cell# [phone]. ALSO LEFT ALVAAGGE TO CHANI ALCALA ( public guardian) THAT PT IS GOING TO BE DISCHARGE BACK TO [facility].
[2020-11-15 16:28] VITALS: BP 128/66
--- NOTE | 2020-11-15 16:43 | NUR ---
RN DISCHARGED NOTES PT DISCHARGED TO [facility] IN STABLE CONDITION. A/O 2-3. ABLE TO MAKE NEEDS KNOWN. V/S TAKEN, STABLE AND RECORDED. PT HAS NO BELONGINGS. IV ACCESS ON RFA #20 REMOVED WITH NO ACTIVE BLEEDING NOTED, DRY PRESSURE DRESSING APPLIED TO SITE. HEALTH TEACHINGS GIVEN TO PT AND VERBALIZED UNDERSTANDING, REPORT GIVEN EARLIER VIA TELEPHONE TO JONEL CORDOVA OF [facility]. PT LEFT UNIT @ 1630 VIA [facility] ACCOMPANIED BY 2 EMT'S FROM [facility]. CHARGE NURSE AWARE OF DISCHARGE.
== END 2020-11-15 16:30 | DRG 391 ==
LOC: ER 17:44 → TELE1 11-11 00:28 → MEDSG1 11-11 03:18 → MED 11-13 04:30
PROVIDERS: ADMIT Nurse Practitioner Acute Care; ATTEND Nurse Practitioner Acute Care
PROC: 30233N1 Transfusion of Nonautologous Red Blood Cells into Peripheral Vein, Percutaneous Approach (ICD-10-PCS; principal; 2020-11-10)
PROC: 30233N1 Transfusion of Nonautologous Red Blood Cells into Peripheral Vein, Percutaneous Approach (ICD-10-PCS; 2020-11-10)
DX: K29.00 Acute gastritis without bleeding (principal); G93.41 Metabolic encephalopathy; D62 Acute posthemorrhagic anemia; F03.91 Unspecified dementia, unspecified severity, with behavioral disturbance; I10 Essential (primary) hypertension; Z20.822 Contact with and (suspected) exposure to COVID-19; E03.9 Hypothyroidism, unspecified; E11.9 Type 2 diabetes mellitus without complications; D50.9 Iron deficiency anemia, unspecified; F39 Unspecified mood [affective] disorder; Z86.718 Personal history of other venous thrombosis and embolism; K21.9 Gastro-esophageal reflux disease without esophagitis; Z79.899 Other long term (current) drug therapy; F29 Unspecified psychosis not due to a substance or known physiological condition; F41.9 Anxiety disorder, unspecified; F32.9 Major depressive disorder, single episode, unspecified; Z91.14 Patient's other noncompliance with medication regimen; Z91.19 Patient's noncompliance with other medical treatment and regimen; K63.9 Disease of intestine, unspecified
CPT/HCPCS: 36415; 71045-TC; 80048-TC; 80053-TC; 80061-TC; 80076-TC; 82272-TC; 82378; 82728-TC; 83540-TC; 83735-TC; 84100-TC; 84439-TC; 84443-TC; 84484-TC; 85025-TC; 85730-TC; 86850-TC; 87081-TC; 93307-TC; C9113; C9803; G0378; J2916; J7030; J7040; J7050; P9016; U0003

== ENCOUNTER 2021-02-09 19:47 | Inpatient (IN) | payer MEDICARE, OTHER ==
[~2021-02-09] VITALS: Ht 157.5 cm; Wt 65.3 kg
[~2021-02-09 19:47] MED LIST changes: +ACET-2605 PO; +ASCO-352 PO; +CHOL100062 PO; -CLON0.1T PO; +DIVA125C2 PO; -MAG355OR18 PO; +MAGN400O6 PO; -MEMA5TAB PO; -MERO500V23 IV; -ONDA4TAB11 PO; +QUET25TA PO
[2021-02-09] MEDS: NOREPINEPHRINE 8 MG in IV NS 0.9% 242 ML IV PRN ×4 (20:00→21:20)
[2021-02-09] MEDS ORDERED: NOREPINEPHRINE 4 MG/4 ML AMPUL IV ONE (20:01)
--- NOTE | 2021-02-09 20:10 | NUR ---
AT BEDSIDE TO START A CENTRAL LINE.
--- NOTE | 2021-02-09 20:16 | NUR ---
BS 189 MD AWARE.
--- NOTE | 2021-02-09 20:20 | NUR ---
FINISHED CENTRAL LINE
--- NOTE | 2021-02-09 20:25 | NUR ---
BLOOD AND CULTURES COLLECTED AND SENT TO LAB
--- NOTE | 2021-02-09 20:26 | NUR ---
MARQUEZ INSERTED URINE COLLECTED AND SENT TO LAB
[2021-02-09] MEDS ORDERED: VANCOMYCIN 1 GM in IV D5W 250 ML IV ONE (20:30)
[2021-02-09] MEDS ORDERED: MEROPENEM 1 G in IV NS 0.9% 100 ML IV ONE (20:30)
[2021-02-09] MEDS ORDERED: IV NS 0.9% 1,000 ML BAG IV ONE (20:30)
[2021-02-09] MEDS ORDERED: ACETAMINOPHEN 650 MG/SUPP.RECT RC ONE ×2 (20:30→20:37)
[2021-02-09] MEDS ORDERED: VANCOMYCIN 1 GM VIAL ONE (20:37)
[2021-02-09] MEDS ORDERED: MEROPENEM 1 G VIAL IV ONE (20:37)
[2021-02-09 20:38] LABS: MEAN CORPUSCULAR HGB CONC 28 g/dl (31.0-36.0)
[2021-02-09 20:40] LABS: BILIRUBIN,URINE MODERATE (NEGATIVE); COLOR,URINE DARK YELLOW (YELLOW); LEUKOCYTE ESTERASE ,URINE Negative (NEGATIVE); NITRITE, URINE Negative (NEGATIVE); PROTEIN,URINE 30 mg/dl (NEGATIVE); UGLUCOSE 100 MG/DL mg/dL (NEGATIVE)
[2021-02-09 20:41] LABS: HEMATOCRIT 23 % (33-45); LYMPHOCYTES # (AUTO) 0.9 K/uL (0.8-4.8); MEAN CORPUSCULAR VOLUME 61 fL (82-100); MONOCYTES % (AUTO) 3.4 % (2.0-12.0); NEUTROPHILS # (AUTO) 26.9 K/uL (1.8-8.9); NEUTROPHILS % (AUTO) 93.6 % (43.0-81.0); PLATELET COUNT (AUTO) 529 K/uL (150-450); RED BLOOD CELL COUNT(AUTO) 3.75 MIL/uL (4.0-5.2); WHITE BLOOD COUNT (AUTO) 28.7 K/uL (4.3-11.0)
[2021-02-09 20:44] LABS: HEMOGLOBIN 6.5 g/dL (11.5-14.8)
--- NOTE | 2021-02-09 20:45 | NUR ---
PT GOING TO CT
[2021-02-09 20:46] LABS: CALCIUM, SERUM 7.3 mg/dL (8.5-10.1); CARBON DIOXIDE 15 mmol/L (21-32); CHLORIDE 113 mmol/L (98-107); CREATININE 2.1 mg/dL (0.6-1.3); GLUCOSE 206 mg/dL (74-106); POTASSIUM 3.6 mmol/L (3.5-5.1); SODIUM SERUM 150 mmol/L (136-145); UREA NITROGEN, BLOOD 62 mg/dL (7-18)
--- NOTE | 2021-02-09 20:46 | NUR ---
Hg 6.5
[2021-02-09 20:48] LABS: BACTERIA,URINE Few /HPF (None Seen); HYALINE CASTS, URINE Few /LPF (None Seen); MUCUS,URINE Moderate /LPF (None Seen); SQUAMOUS EPITHELIAL CELL,UR Few /HPF (None Seen); WBC,URINE 0-2 /HPF (0-3)
[2021-02-09 20:52] LABS: ALANINE AMINOTRANSFERASE 22 U/L (12-78); ALKALINE PHOSPHATASE 159 U/L (46-116); ASPARTATE AMINOTRANSFERASE 114 U/L (15-37); BILIRUBIN,TOTAL 1.5 mg/dL (0.2-1.0); TOTAL PROTEIN, SERUM 5.2 g/dL (6.4-8.2)
[2021-02-09 20:54] LABS: ALBUMIN 1.1 g/dL (3.4-5.0)
--- NOTE | 2021-02-09 20:56 | NUR ---
ALBUMIN 1.1
--- NOTE | 2021-02-09 21:00 | NUR ---
LACTIC ACID 10.3 MD VILLANUEVA NOTIFIED
[2021-02-09 21:05] LABS: BAND % (MANUAL) 2 % (0.0-5.0); LYMPHOCYTES % (MANUAL) 3 % (16-48); MONOCYTES % (MANUAL) 1 % (0-11.0); NEUTROPHILS % (MANUAL) 94 (42-76)
[2021-02-09 21:23] LABS: ABG PCO2 23.9 mmHg (35.0-45.0); ABG PH 7.386 (7.350-7.450); ABG PO2 93.3 mmHg (75.0-100.0); MetHb 0.1 % (0.0-1.5); O2Hb 93.4 % (94.0-97.0); SITE, ABG Right Radial; VENT MODE, BG RA
--- NOTE | 2021-02-09 21:23 | NUR ---
DR BEY PAGED PER DR VILLANUEVA
[2021-02-09] MEDS ORDERED: ACETAMINOPHEN 650 MG/SUPP.RECT RC PRN (22:00)
[2021-02-09] MEDS ORDERED: DOCUSATE SODIUM 100 MG CAPSULE PO SCH (22:00)
[2021-02-09] MEDS ORDERED: IV 1/2NS 1000 ML 1,000 ML IV PRN (22:00)
[2021-02-09] MEDS ORDERED: NOREPINEPHRINE 8 MG in IV NS 0.9% 250 ML IV PRN (22:00)
--- NOTE | 2021-02-09 22:37 | NUR ---
CALLED TO GIVE REPORT, ICU NURSE NOT READY FOR REPORT. WILL TRY TO CALL BACK
--- NOTE | 2021-02-09 23:49 | NUR ---
REPORT GIVEN TO RN HEATHER
[2021-02-10] VITALS (49 sets, daily range): BP systolic 61–149; BP diastolic 36–111
--- NOTE | 2021-02-10 00:10 | NUR ---
RECEIVED PT FROM ER LETHARGIC ON O2 3L VIA NC SPO2 97% NO SIGN OF RESPIRATORY DISTRESS, SAFELY TRANSFER FROM [facility] TO BED HOOKED TO MONITOR WITH READING SINUS TACHY 110'S, V/S CHECKED AND RECORDED, PT HAVE RAC#20 AND LFA # 20 PATENT AND FLUSHED ALSO HAVE RIGHT FEM 3L CATHETER WITH ONGOING 1PRBC @ 120 ML/HR AND LEVOPHED @ 0.03 MCG/KG/MIN INFUSING WELL, HEAD TO TOE ASSESSMENT DONE OPEN WOUND ON LOWER ABDOMEN NOTED AND DOCUMENTED FOR WOUND CONSULT, INITIAL ASSESSMENT DONE, ALL INFORMATION WAS OBTAIN FROM RECORDS FROM [facility] [place] [place] [facility] [place]/T PT MENTAL STATUS,HAVE MARQUEZ CATHETER DRAINING DARK YELLOW URINE VERY MINIMAL OUTPUT, BED ON LOWEST POSITION AND LOCKED SIDE RAILS UP X2 WILL CONT TO MONITOR THE PT
--- NOTE | 2021-02-10 00:12 | NUR ---
PATIENT TRANSFERRED TO ICU VIA ACLS
[2021-02-10] MEDS: PANTOPRAZOLE 40 MG VIAL IV SCH ×3 (00:38→20:21)
--- NOTE | 2021-02-10 00:45 | NUR ---
LOOD TRANSFUSION OF 1PRBC COMPLETED WITH LATEST V/S T 97.7 BP 139/71 HR 104 RR 28 PT STILL LETHARGIC, BUT AROUSABLE, SPO2 98% ON O2 VIA NC @ 3L NO BLOOD TRANSFUSION REACTION NOTED, WILL CONT TO MONITOR THE PT
[2021-02-10] MEDS ORDERED: DEXTROSE 50%-WATER 50 ML DISP.SYRIN IV PRN ×2 (02:00→20:00)
[2021-02-10] MEDS ORDERED: BISACODYL SUPP (10 MG) 10 MG/SUPP.RECT SUPP.RECT RC ONE (02:00)
[2021-02-10] MEDS ORDERED: INSULIN REGULAR, HUMAN 100 UNIT/ML 3 ML VIAL SQ PRN (02:00)
[2021-02-10 04:31] LABS: BASOPHILS # (AUTO) 0.1 K/uL (0.0-0.2); BASOPHILS % (AUTO) 0.1 % (0.0-2.0); HEMATOCRIT 29 % (33-45); HEMOGLOBIN 8.9 g/dL (11.5-14.8); LYMPHOCYTES # (AUTO) 2.3 K/uL (0.8-4.8); LYMPHOCYTES % (AUTO) 5.6 % (20.0-44.0); MEAN CORPUSCULAR HGB CONC 31 g/dl (31.0-36.0); MEAN CORPUSCULAR VOLUME 63 fL (82-100); MONOCYTES % (AUTO) 2.5 % (2.0-12.0); NEUTROPHILS # (AUTO) 37.2 K/uL (1.8-8.9); NEUTROPHILS % (AUTO) 91.8 % (43.0-81.0); PLATELET COUNT (AUTO) 476 K/uL (150-450)
[2021-02-10 04:44] LABS: WHITE BLOOD COUNT (AUTO) 40.5 K/uL (4.3-11.0)
[2021-02-10 04:49] LABS: THYROID STIMULATING HORMONE 7.046 uIU/mL (0.358-3.74)
[2021-02-10 04:53] LABS: CALCIUM, SERUM 7.1 mg/dL (8.5-10.1); CARBON DIOXIDE 18 mmol/L (21-32); CHLORIDE 111 mmol/L (98-107); CREATININE 1.9 mg/dL (0.6-1.3); GLUCOSE 274 mg/dL (74-106); PHOSPHORUS 5.2 mg/dL (2.5-4.9); POTASSIUM 3.8 mmol/L (3.5-5.1); SODIUM SERUM 147 mmol/L (136-145); UREA NITROGEN, BLOOD 69 mg/dL (7-18)
[2021-02-10 04:59] LABS: BAND % (MANUAL) 10 % (0.0-5.0); LYMPHOCYTES % (MANUAL) 3 % (16-48); MONOCYTES % (MANUAL) 2 % (0-11.0); NEUTROPHILS % (MANUAL) 85 (42-76)
[2021-02-10] MEDS ORDERED: MEROPENEM 1 G in IV NS 0.9% 100 ML IV SCH ×2 (05:00→17:00)
--- NOTE | 2021-02-10 05:00 | NUR ---
INFORMED AUBREY YATES PAPER CUP MACHINE TENDER THAT PT HR IS ON 120'S AND ASK HER IF IT IS OKAY TO CHANGE THE PRESSOR TO NEOSYNEPHRINE TO TITRATE PER PROTOCOL ANS SHE SAID OKAY, NOTED AND CARRIED OUT
[2021-02-10] MEDS ORDERED: MEROPENEM 1 G VIAL IV ONE (05:13)
[2021-02-10] MEDS ORDERED: PHENYLEPHRINE 10 MG/ML VIAL ONE (05:26)
[2021-02-10] MEDS: PHENYLEPHRINE 50 MG in IV NS 0.9% 245 ML IV PRN (05:38)
[2021-02-10 05:43] LABS: D-DIMER 4.28 mg/L(FEU (0.17-0.50)
--- NOTE | 2021-02-10 06:40 | NUR ---
REPORTED TO AUBREY YATES NP ABOUT THE TROPONIN 0.936 WITH ORDER TO REPEAT TROPONIN AFTER 4 HRS NOTED AND CARRIED OUT
--- NOTE | 2021-02-10 07:22 | NUR ---
RN NOTE PATIENT IS IN BED WITH HOB AT SEMI FOWLERS POSITION. PATIENT IS ON 3L NC WITH NO SIGNS OF LABORED BREATHING. PATIENT IS LETHARGIC. RAC, LFA, AND RFEM IV ACCESS ARE PATENT AND INTACT. BED IS LOCKED IN THE LOWEST POSITION, 3 GUARD RAILS RAISED, CALL NEVES WITHIN REACH, AND ALL HOSPITAL SAFETY PRECAUTIONS ARE BEING FOLLOWED. WILL CONTINUE TO MONITOR THROUGHOUT SHIFT.
[2021-02-10] MEDS: LEVOTHYROXINE SODIUM 25 MCG TABLET PO SCH (07:24)
[2021-02-10] MEDS ORDERED: MULT-447 PO (07:40)
[2021-02-10] MEDS ORDERED: FERR325T23 PO (07:40)
[2021-02-10] MEDS ORDERED: QUET25TA PO (07:40)
[2021-02-10] MEDS: BLOOD SUGAR DIAGNOSTIC 1 EACH STRIP IN SCH ×4 (08:27→23:22)
[2021-02-10] MEDS: IV NS 0.9% 1,000 ML IV PRN ×3 (08:38→13:41)
[2021-02-10] MEDS ORDERED: Medication Not On Formulary EA (Cran/Vitc/Mannose/Inulin/Brom (Uti-Stat Liquid) 30 ML) PO SCH (09:00)
--- NOTE | 2021-02-10 09:09 | NUR ---
WOUND CARE CONSULT: REVIEWED CHART, NURSING DOCUMENTATION AND PHOTO WHICH INDICATES ABDOMINAL ABSCESS, PRESENT ON ADMISSION. DEFER TO SURGEON CURRENTLY ON CASE. RECOMMENDATIONS MADE FOR SKIN PROTECTION. DISCUSSED WITH NURSING STAFF. MD IN AGREEMENT WITH PLAN OF CARE.
--- NOTE | 2021-02-10 09:19 | NUR ---
RN NOTE NOTIFIED DR. HERNANDEZ OF PATIENT TEMP 102.2 OKAY TO ORDER TYLENOL 650 MG.
[2021-02-10] MEDS ORDERED: Z GUARD REMEDY 2 OZ OINT TP PRN (09:30)
[2021-02-10] MEDS: ACETAMINOPHEN 650 MG/SUPP.RECT RC PRN (09:32)
--- NOTE | 2021-02-10 11:18 | NUR ---
RN NOTE BLOOD SUGAR OF 161, INSULIN HELD FOR NPO STATUS.
--- NOTE | 2021-02-10 11:34 | NUR ---
RN NOTE ATTEMPTED TO CONTACT FAMILY X3 FOR PROCEDURE, BLOOD TRANSFUSION, AND ANESTHESIA CONSENTS.
[2021-02-10] MEDS ORDERED: BUPIVACAINE 0.5 % PF 150 MG/30 ML VIAL ONE (13:27)
[2021-02-10] MEDS ORDERED: ANESTHESIA TRAY IN PYXIS 1 EA TRAY MC ONE (14:29)
[2021-02-10] MEDS ORDERED: MIDAZOLAM HCL 2 MG/2ML VIAL ONE (16:30)
[2021-02-10] MEDS ORDERED: FENTANYL PF 250MCG/5ML AMPUL ONE (16:30)
[2021-02-10] MEDS ORDERED: SUCCINYLCHOLINE CHLORIDE 20 MG/ML VIAL ONE (16:31)
[2021-02-10] MEDS ORDERED: FAMOTIDINE/PF INJ 20 MG/2 ML VIAL IV ONE (16:31)
[2021-02-10] MEDS ORDERED: METRONIDAZOLE 500MG/ NS 100ML 100 ML IV ONE (16:42)
[2021-02-10] MEDS ORDERED: HYDROGEN PEROXIDE 480 ML BOTTLE ONE (16:55)
--- NOTE | 2021-02-10 17:45 | NUR ---
RT NOTE: PATIENT RECEIVED ORALLY INTUBATED FROM OR WITH 7.0 ETT SECURED AT 20 CM MID LIP LINE AND PLACED ON MECHANICAL VENT. ALARMS VERIFIED AND AUDIBLE. BILATERAL B/S NOTED. AMBU BAG AT [facility].
[2021-02-10] MEDS: MEROPENEM 1 G in IV NS 0.9% 100 ML IV SCH (17:55)
[2021-02-10] MEDS ORDERED: CHOLECALCIFEROL 1,000 UNIT TABLET (VIT D3) PO SCH (18:00)
[2021-02-10] MEDS ORDERED: ASCORBIC ACID 500 MG TABLET PO SCH (18:00)
[2021-02-10] MEDS: IV 1/2NS 1000 ML 1,000 ML IV PRN (18:07)
--- NOTE | 2021-02-10 18:15 | NUR ---
RN NOTE BLOOD SUGAR 110 NO INSULIN COVERAGE.
--- NOTE | 2021-02-10 18:37 | NUR ---
RN NOTE PATIENT IS IN BED WITH HOB AT SEMI FOWLERS POSITION. PATIENT IS ON VENT WITH NO SIGNS OF LABORED BREATHING. PATIENT IS LETHARGIC. RAC, LFA, AND RFEM IV ACCESS ARE PATENT AND INTACT. BED IS LOCKED IN THE LOWEST POSITION, 3 GUARD RAILS RAISED, CALL NEVES WITHIN REACH, AND ALL HOSPITAL SAFETY PRECAUTIONS ARE BEING FOLLOWED. ALL DUE MEDS GIVEN. WILL ENDORSE TO TRUST MANAGER RN.
--- NOTE | 2021-02-10 19:05 | NUR ---
RECEIVED PT ON BED LETHARGIC, OPEN EYES TO DEEP PAIN, ORALLY INTUBATED ON VENT SETTING PER MD FIO2 50% SPO2 98% NO SIGN OF RESPIRATORY DISTRESS, TELE MONITOR READS SINUS TACHY 104, PT HAVE ONGOING 1/2 NS @ 100ML/HR INFUSING VIA RFEM 3L CATH, PT HAVE BILATERAL SOFT WRIST RESTRAINTS FOR SELF EXTUBATION PRECAUTION,PT HAVE ABDOMINAL SURGERY PACKED NO BLEEDING NOTED, BED ON LOWEST POSITION AND LOCKED SIDE RAILS UP X2 WILL CONT TO MONITOR
--- NOTE | 2021-02-10 20:07 | NUR ---
INFORMED HOSPITALIST AUBREY YATES ENVIRONMENTAL MONITORING SPECIALIST ABOUT THE LATEST ABG RESULT WITH ORDER TO TITRATE O2 MAINTAIN >92% TV 450 AND NaHCO3 100 MEQ X1 IV PUSH X1 NOW
--- NOTE | 2021-02-10 20:11 | NUR ---
RCVD PT ORALLY INTUBATED WITH ETT 7.0 SECURED AT 20 CM LIP LINE ON VENT WITH THE SETTINGS OF AC 12,500 50% PEEP 5. PT IS SEDATED. ABG DONE . UPON ABG RESULT DECREASED TIDAL VOLUME TO 450 AND TITRATE O2 TO 40% PER MD'S ORDER.
[2021-02-10] MEDS ORDERED: SODIUM BICARBONATE SYR 50 MEQ/50 ML DISP.SYRIN IV ONE (20:30)
[2021-02-10 20:55] LABS: ABG BASE EXCESS -10.2 mmol/L; ABG PCO2 23.3 mmHg (35.0-45.0); ABG PH 7.385 (7.350-7.450); ABG PO2 165.1 mmHg (75.0-100.0); COHb 1.2 % (0.5-1.5); MetHb 0.2 % (0.0-1.5); O2Hb 96.2 % (94.0-97.0); PEEP,BG 5 cm H2O; VT, ABG 500 mL
[2021-02-10] MEDS: VANCOMYCIN 500 MG in IV D5W 100 ML IV SCH (21:10)
[2021-02-10 22:10] LABS: ABG BASE EXCESS -8.1 mmol/L; ABG PCO2 22.5 mmHg (35.0-45.0); ABG PH 7.443 (7.350-7.450); ABG PO2 145.4 mmHg (75.0-100.0); COHb 0.7 % (0.5-1.5); MetHb 0.2 % (0.0-1.5); O2Hb 96.1 % (94.0-97.0); PEEP,BG 5 cm H2O; VT, ABG 450 mL
[2021-02-10] MEDS: FLUCONAZOLE IN NS 100 MG in PREMIX 1 EA IV SCH (22:58)
[2021-02-10] MEDS: INSULIN REGULAR, HUMAN 100 UNIT/ML 3 ML VIAL SQ PRN (23:23)
[2021-02-10 23:24] LABS: HEMOGLOBIN 6.5 g/dL (11.5-14.8)
[2021-02-10] MEDS ORDERED: FLUCONAZOLE IN NS 100 ML IV ONE (23:29)
--- NOTE | 2021-02-10 23:40 | NUR ---
TITRATE O2 TO 35% RN HEATHER AWARE. SPO2 99%., NO RESPIRATORY DISTRESS NOTED AT THIS TIME. WILL CONTINUE TO MONITOR T/O SHIFT.
--- NOTE | 2021-02-10 23:52 | NUR ---
REPORTED TO HOSPITALIST AUBREY YATES HAND MODEL ABOUT THE Hgb 6.5 Hct 22 WITH ORDER TO TRANSFUSE 1 UNIT PRBC NOTED AND CARRIED OUT
[2021-02-11] VITALS (71 sets, daily range): BP systolic 82–138; BP diastolic 45–79
--- NOTE | 2021-02-11 04:40 | NUR ---
BLOOD TRANSFUSION COMPLETED @ 0432 WITH LATEST V/S 98.7 F BP HR 112 RR 24 SPO2 98% NO SIGN OF RESPIRATORY DISTRESS, NO SIGN OF TRANSFUSION REACTION NOTED WILL CONT TO MONITOR
[2021-02-11] MEDS: IV 1/2NS 1000 ML 1,000 ML IV PRN ×3 (05:01→23:00)
[2021-02-11] MEDS: MEROPENEM 1 G in IV NS 0.9% 100 ML IV SCH ×2 (05:30→16:13)
[2021-02-11] MEDS: BLOOD SUGAR DIAGNOSTIC 1 EACH STRIP IN SCH ×3 (06:11→17:19)
[2021-02-11] MEDS: INSULIN REGULAR, HUMAN 100 UNIT/ML 3 ML VIAL SQ PRN ×2 (06:13→23:54)
[2021-02-11 06:40] LABS: BASOPHILS % (AUTO) 0.1 % (0.0-2.0); EOSINOPHILS % (AUTO) 0.1 % (0.0-6.0); HEMATOCRIT 29 % (33-45); LYMPHOCYTES # (AUTO) 1.4 K/uL (0.8-4.8); LYMPHOCYTES % (AUTO) 7.1 % (20.0-44.0); MEAN CORPUSCULAR HGB CONC 31 g/dl (31.0-36.0); MEAN CORPUSCULAR VOLUME 69 fL (82-100); MONOCYTES # (AUTO) 0.5 K/uL (0.1-1.30); MONOCYTES % (AUTO) 2.4 % (2.0-12.0); NEUTROPHILS # (AUTO) 17.7 K/uL (1.8-8.9); NEUTROPHILS % (AUTO) 90.3 % (43.0-81.0); PLATELET COUNT (AUTO) 201 K/uL (150-450); RED BLOOD CELL COUNT(AUTO) 4.14 MIL/uL (4.0-5.2); WHITE BLOOD COUNT (AUTO) 19.6 K/uL (4.3-11.0)
[2021-02-11 07:05] LABS: ALANINE AMINOTRANSFERASE 228 U/L (12-78); ALKALINE PHOSPHATASE 136 U/L (46-116); ASPARTATE AMINOTRANSFERASE 384 U/L (15-37); BILIRUBIN,TOTAL 0.9 mg/dL (0.2-1.0); CARBON DIOXIDE 17 mmol/L (21-32); CHLORIDE 114 mmol/L (98-107); GLUCOSE 112 mg/dL (74-106); MAGNESIUM 1.6 mg/dL (1.8-2.4); PHOSPHORUS 4.3 mg/dL (2.5-4.9); SODIUM SERUM 147 mmol/L (136-145); TOTAL PROTEIN, SERUM 4.8 g/dL (6.4-8.2); UREA NITROGEN, BLOOD 69 mg/dL (7-18)
--- NOTE | 2021-02-11 07:05 | NUR ---
RN NOTES RECEIVED PT ON BED, LETHARGIC , RESPONDS TO DEEP PAINFUL STIMULI, INTUBATED , TOLERATING VENT SETTING WELL, ON TELE ST HR IN 110'S, DRESSING TO ABD INTACT, PT IS NPO AT THIS TIME, IV SITES CLEAN, DRY AND INTACT, SR UP x3, CALL LIGHT WITHIN EASY REACH, BED LOCKED AND IN LOWEST POSITION, CONTINUE TO MONITOR.
[2021-02-11 07:13] LABS: CALCIUM, SERUM 5.7 mg/dL (8.5-10.1)
[2021-02-11] MEDS: LEVOTHYROXINE SODIUM 25 MCG TABLET PO SCH (07:30)
[2021-02-11] MEDS: PANTOPRAZOLE 40 MG VIAL IV SCH ×2 (08:28→21:12)
--- NOTE | 2021-02-11 09:00 | NUR ---
RN NOTES DR HERNANDEZ NOTIFIED REGARDING ABNORMAL LAB RESULTS .
[2021-02-11] MEDS ORDERED: IV NS 0.9% 500 ML IV ONE (09:30)
[2021-02-11] MEDS ORDERED: Magnesium 1GM/D5W 100ML PREMIX 100 ML IV SCH (10:00)
[2021-02-11] MEDS: POTASSIUM CL. PREMIX PERIPHER. 50 ML IV SCH ×5 (10:18→14:51)
[2021-02-11] MEDS: ACETAMINOPHEN 650 MG/SUPP.RECT RC PRN (13:25)
[2021-02-11] MEDS: PHENYLEPHRINE 50 MG in IV NS 0.9% 245 ML IV PRN (15:09)
--- NOTE | 2021-02-11 15:09 | NUR ---
RN NOTES LOW BP NOTED , PT STARTED ON JOSE DRIP PER MD ORDER , CONTINUE TO MONITOR .
--- NOTE | 2021-02-11 18:00 | NUR ---
RN NOTE PT REMAINS INTUBATED, AND , LETHARGIC , TOLERATING VENT SETTING WELL, ON TELE ST HR IN 120'S , ON JOSE DRIP FOR BP SUPPORT , RAC, LFA, AND R FEM IV ACCESS ARE PATENT AND INTACT. BED IS LOCKED IN THE LOWEST POSITION, SR UP x3, CALL LIGHT WITHIN EASY REACH, WILL ENDORSE TO BOARD LAYER NURSE FOR CONTINUITY OF CARE .
--- NOTE | 2021-02-11 19:30 | NUR ---
RN NOTES RECEIVED PT FOR CONTINUITY OF CARE. PATIENT ON MECHANICAL VENT; SETTINGS PRESCRIBED; PT TOLERATED WELL. AMBU BAG AT BED SIDE ALARMS SET PER PROTOCOL AND AUDIBLE. VENT PLUGGED IN TO RED OUTLET. PATIENT ON TELE MONITORING READING SINUS TACHY HR IS @100s AT THE TIME OF RECEIVED. CURRENTLY ON NPO. NOTED IV SITE ON R AC#20 L FA #20 AND R FEM 3LUMEN ;ALL PATENT, INTACT AND FLUSHING WELL; NO S/S OF INFECTION OR INFILTRATION. WITH IV FLUID RUNNING ORDERED. AT THE TIME OF RECEIVED PT HAS A RUNNING JOSE AT 1MCG/KG/MIN MONITORED AND TITRATED PER PROTOCOL. MARQUEZ CATH IN PLACE,SMALL URINE OUTPUT NOTED >10CC AT THE TIME OF RECEIVED. SAFETY MEASURES HAVE BEEN PROVIDED AND IMPLEMENTED. PATIENT BED ALARM IS ON. HEAD OF BED ELEVATED. BED IS LOCKED, IN LOWEST POSITION AND SIDE RAILS UP. CALL LIGHT WITHIN REACH OF THE PATIENT. APPLICABLE ISOLATION PRECAUTIONS IN PLACE. WILL CONTINUE TO MONITOR AND REASSESS FOR ANY CHANGES AND WILL CARRY OUT ANY ONGOING AND ACTIVE MD ORDER.
[2021-02-11] MEDS: FLUCONAZOLE IN NS 100 MG in PREMIX 1 EA IV SCH (21:16)
[2021-02-11] MEDS: VANCOMYCIN 500 MG in IV D5W 100 ML IV SCH (22:23)
[2021-02-12] VITALS (96 sets, daily range): BP systolic 78–135; BP diastolic 33–75
--- NOTE | 2021-02-12 | NUR ---
RN NOTES PATIENT REMAINED TO BE IN NO SIGNS OF ACUTE RESPIRATORY DISTRESS , VITAL SIGNS WNL AT THIS TIME. WILL CONTINUE TO MONITOR AND REASSESS FOR ANY CHANGES THROUGHOUT THE SHIFT.
[2021-02-12] MEDS: BLOOD SUGAR DIAGNOSTIC 1 EACH STRIP IN SCH ×5 (00:04→23:46)
[2021-02-12] MEDS: MEROPENEM 1 G in IV NS 0.9% 100 ML IV SCH ×2 (04:03→16:08)
[2021-02-12 04:30] LABS: BASOPHILS # (AUTO) 0.1 K/uL (0.0-0.2); BASOPHILS % (AUTO) 0.2 % (0.0-2.0); HEMATOCRIT 29 % (33-45); HEMOGLOBIN 8.9 g/dL (11.5-14.8); LYMPHOCYTES # (AUTO) 1.9 K/uL (0.8-4.8); MEAN CORPUSCULAR HGB CONC 31 g/dl (31.0-36.0); MEAN CORPUSCULAR VOLUME 69 fL (82-100); MONOCYTES # (AUTO) 0.7 K/uL (0.1-1.30); MONOCYTES % (AUTO) 2.3 % (2.0-12.0); NEUTROPHILS # (AUTO) 28.9 K/uL (1.8-8.9); NEUTROPHILS % (AUTO) 91.5 % (43.0-81.0); PLATELET COUNT (AUTO) 253 K/uL (150-450); RED BLOOD CELL COUNT(AUTO) 4.23 MIL/uL (4.0-5.2)
[2021-02-12 05:00] LABS: ALANINE AMINOTRANSFERASE 193 U/L (12-78); ALKALINE PHOSPHATASE 175 U/L (46-116); ASPARTATE AMINOTRANSFERASE 507 U/L (15-37); BILIRUBIN,TOTAL 0.7 mg/dL (0.2-1.0); CARBON DIOXIDE 14 mmol/L (21-32); CHLORIDE 113 mmol/L (98-107); GLUCOSE 104 mg/dL (74-106); MAGNESIUM 1.9 mg/dL (1.8-2.4); PHOSPHORUS 4.4 mg/dL (2.5-4.9); POTASSIUM 4.4 mmol/L (3.5-5.1); SODIUM SERUM 143 mmol/L (136-145); UREA NITROGEN, BLOOD 72 mg/dL (7-18)
[2021-02-12 05:11] LABS: WHITE BLOOD COUNT (AUTO) 31.6 K/uL (4.3-11.0)
[2021-02-12] MEDS: INSULIN REGULAR, HUMAN 100 UNIT/ML 3 ML VIAL SQ PRN ×2 (05:36→23:51)
[2021-02-12 05:45] LABS: LYMPHOCYTES % (MANUAL) 5 % (16-48); MONOCYTES % (MANUAL) 3 % (0-11.0); NEUTROPHILS % (MANUAL) 92 (42-76)
--- NOTE | 2021-02-12 05:57 | NUR ---
RN NOTES NOTIFIED AKSHAT MONSIVAIS ([facility] ) CRITICAL LAB (ALBUMIN LEVEL AT 1.0). AKSHAT MONSIVAIS ORDERED 1 BAG ALBUMIN. COMM[employer] MADE AWARE. WILL CARRY OUT ORDERED.
[2021-02-12] MEDS: IV NS 0.9% 1,000 ML IV PRN (06:25)
--- NOTE | 2021-02-12 06:45 | NUR ---
RN CLOSING NOTE: PATIENT REMAINS IN ROOM IN NO SIGNS OF RESPIRATORY DISTRESS, PATIENT STILL ON MECH VENT; SETTINGS PRESCRIBED;TOLERATING WELL SATURATING @ >95% SP02. SAFETY MEASURES IMPLEMENTED, BED IN LOWEST POSITION, LOCKED, SIDE RAILS UP, CALL LIGHT WITHIN REACH. ALL NEEDS AND ORDERS ADDRESSED DURING THE SHIFT. IV ACCESS MAINTAINED INTACT, SECURED AND FLUSHING WELL. ALL DUE MEDS GIVEN ORDERED & SCHEDULED ; PATIENT TOLERATED WELL. STILL WITH ONGOING JOSE DRIP @1MCG/KG/MIN RUNNING , MONITORED AND ADJUSTED PER PROTOCOL. PATIENT KEPT CLEAN AND COMFORTABLE WITHIN THE SHIFT. PATIENT ENDORSED TO INCOMING SHIFT RN WITH STABLE VITAL SIGN AND FOR CONTINUITY OF CARE.
[2021-02-12] MEDS ORDERED: ALBUMIN 25% 12.5 GM in PREMIX 1 EA IV PRN (07:00)
[2021-02-12] MEDS: IV 1/2NS 1000 ML 1,000 ML IV PRN (07:00)
--- NOTE | 2021-02-12 07:05 | NUR ---
RN NOTES RECEIVED PT ON BED, LETHARGIC , RESPONDS TO DEEP PAINFUL STIMULI, INTUBATED , TOLERATING VENT SETTING WELL, ON TELE ST HR IN 100'S, DRESSING TO ABD INTACT, PT IS NPO AT THIS TIME, IV SITES CLEAN, DRY AND INTACT, SR UP x3, CALL LIGHT WITHIN EASY REACH, BED LOCKED AND IN LOWEST POSITION, CONTINUE TO MONITOR.
[2021-02-12] MEDS: LEVOTHYROXINE SODIUM 25 MCG TABLET PO SCH (07:30)
--- NOTE | 2021-02-12 07:38 | NUR ---
RT PATIENT RECEIVED ORALLY INTUBATED WITH 7.0 ETT SECURED @ 20CM LIP LINE. PT ON [facility] VENT WITH FOLLOWING SETTINGS AC 12, VT 450, FiO2 35%, PEEP +5. VENT PLUGGED INTO RED OUTLET. ETT SECURED BY ANCHOR FAST. BVM AT HEAD OF BED. ALARMS ON AND WORKING PROPERLY. NO SOB NOTED AT THIS TIME. WILL CONTINUE TO MONITOR FOR ANY CHANGES. Addendum: 02/12/21 at 1017 by JEF REINA RT Amended: Links added.
[2021-02-12] MEDS: PHENYLEPHRINE 50 MG in IV NS 0.9% 245 ML IV PRN (07:46)
--- NOTE | 2021-02-12 07:47 | NUR ---
WOUND CARE CONSULT: PT PRESENTS WITH SURGICAL WOUND TO ABDOMEN WITH FOUL PURULENT DRAINAGE, SACRAL INTACT DEEP TISSUE INJURY AND GENERALIZED EDEMA WITH DUSKY COLOR TO FEET. PT NOTED TO HAVE MULTIPLE CO-MORBIDITIES INCLUDING SEVERE SEPTIC SHOCK, ACUTE RESPIRATORY FAILURE (CURRENTLY INTUBATED), CECAL MASS/ABSCESS WITH RECENT SURGICAL INTERVENTION, DIABETES, CACHEXIA AND MALNUTRITION. DUE TO MULTIPLE CO-MORBIDITIES INCLUDING ADVANCED AGE, FURTHER SKIN BREAKDOWN MAY BE UNAVOIDABLE. REQUESTED PLASTIC SURGERY CONSULT FROM DR ROGEL. RECOMMENDATIONS MADE FOR WOUND CARE AND SKIN PROTECTION. DISCUSSED WITH NURSING STAFF. IN AGREEMENT WITH PLAN OF CARE. PT IS ON MILTON ISOFLEX LOW AIRLOSS BED. Addendum: 02/12/21 at 0751 by AN SOL WNDNU Amended: Links added.
[2021-02-12] MEDS ORDERED: ALBUMIN 25% 12.5 GM in PREMIX 1 EA IV ONE (08:00)
[2021-02-12] MEDS: PANTOPRAZOLE 40 MG VIAL IV SCH ×2 (08:19→21:09)
[2021-02-12] MEDS ORDERED: IV D5/ 0.9% NACL 1,000 ML IV PRN (11:30)
[2021-02-12] MEDS: DAKINS QUARTER STRENGTH (0.125%) 480 ML BOTTLE TOP SCH (11:44)
--- NOTE | 2021-02-12 12:00 | NUR ---
RN NOTES JOSE DRIP DECREASED TO .5 MCG/KG/MIN . CONTINUE TO MONITOR .
--- NOTE | 2021-02-12 18:00 | NUR ---
RN NOTE PT REMAINS INTUBATED, AND , LETHARGIC , TOLERATING VENT SETTING WELL, ON TELE SR HR IN 90'S , ON JOSE DRIP FOR BP SUPPORT , RAC, LFA, AND R FEM IV ACCESS ARE PATENT AND INTACT. BED IS LOCKED IN THE LOWEST POSITION, SR UP x3, CALL LIGHT WITHIN EASY REACH, WILL ENDORSE TO PAPER CARRIER NURSE FOR CONTINUITY OF CARE .
[2021-02-12] MEDS: Sodium Bicarbonate 100 MEQ in IV D5 / 0.2% NACL 1,000 ML IV SCH (18:13)
[2021-02-12] MEDS: FLUCONAZOLE IN NS 100 MG in PREMIX 1 EA IV SCH (21:12)
[2021-02-12] MEDS: VANCOMYCIN 500 MG in IV D5W 100 ML IV SCH (22:15)
[2021-02-13] VITALS (86 sets, daily range): BP systolic 89–130; BP diastolic 44–73
[2021-02-13] MEDS: Sodium Bicarbonate 100 MEQ in IV D5 / 0.2% NACL 1,000 ML IV SCH ×3 (03:28→16:49)
[2021-02-13] MEDS: MEROPENEM 1 G in IV NS 0.9% 100 ML IV SCH ×2 (04:50→16:49)
[2021-02-13 05:02] LABS: HEMOGLOBIN 7.9 g/dL (11.5-14.8); LYMPHOCYTES # (AUTO) 1.2 K/uL (0.8-4.8); MONOCYTES # (AUTO) 0.5 K/uL (0.1-1.30)
[2021-02-13 05:16] LABS: BASOPHILS # (AUTO) 0.1 K/uL (0.0-0.2); BASOPHILS % (AUTO) 0.2 % (0.0-2.0); EOSINOPHILS % (AUTO) 0.1 % (0.0-6.0); HEMATOCRIT 26 % (33-45); LYMPHOCYTES % (AUTO) 4.8 % (20.0-44.0); MEAN CORPUSCULAR HGB CONC 30 g/dl (31.0-36.0); MEAN CORPUSCULAR VOLUME 69 fL (82-100); MONOCYTES % (AUTO) 2.1 % (2.0-12.0); NEUTROPHILS % (AUTO) 92.8 % (43.0-81.0); PLATELET COUNT (AUTO) 185 K/uL (150-450); RED BLOOD CELL COUNT(AUTO) 3.77 MIL/uL (4.0-5.2); WHITE BLOOD COUNT (AUTO) 25.9 K/uL (4.3-11.0)
[2021-02-13 05:44] LABS: ALANINE AMINOTRANSFERASE 89 U/L (12-78); ALKALINE PHOSPHATASE 167 U/L (46-116); ASPARTATE AMINOTRANSFERASE 128 U/L (15-37); BILIRUBIN,TOTAL 0.6 mg/dL (0.2-1.0); CALCIUM, SERUM 6.2 mg/dL (8.5-10.1); CARBON DIOXIDE 17 mmol/L (21-32); CHLORIDE 112 mmol/L (98-107); CREATININE 1.8 mg/dL (0.6-1.3); GLUCOSE 200 mg/dL (74-106); MAGNESIUM 1.7 mg/dL (1.8-2.4); PHOSPHORUS 4.8 mg/dL (2.5-4.9); POTASSIUM 3.3 mmol/L (3.5-5.1); SODIUM SERUM 144 mmol/L (136-145); TOTAL PROTEIN, SERUM 4.8 g/dL (6.4-8.2); UREA NITROGEN, BLOOD 72 mg/dL (7-18)
[2021-02-13 05:55] LABS: ALBUMIN 1.1 g/dL (3.4-5.0)
[2021-02-13] MEDS: BLOOD SUGAR DIAGNOSTIC 1 EACH STRIP IN SCH ×4 (06:23→23:40)
[2021-02-13] MEDS: PHENYLEPHRINE 50 MG in IV NS 0.9% 245 ML IV PRN (06:25)
[2021-02-13] MEDS: INSULIN REGULAR, HUMAN 100 UNIT/ML 3 ML VIAL SQ PRN ×4 (06:29→23:44)
[2021-02-13] MEDS: HYDROCORTISONE SOD SUCCINATE 100 MG/2 ML VIAL IV SCH ×3 (06:59→21:00)
[2021-02-13] MEDS: LEVOTHYROXINE SODIUM 25 MCG TABLET PO SCH (07:30)
--- NOTE | 2021-02-13 07:30 | NUR ---
RN NOTES PT FOUND SEMI BRONSON'S DISPLAYING NO S/S OF DISTRESS, FLACC = 0 AND BILATERAL RISE AND FALL OF THE CHEST OBSERVED. ALTHOUGH PT NOT SEDATED, RIKERS = 3. R FEMORAL TRIPLE LUMEN CATH DRESSING IS QUITE WET, RN WILL ASSESS SOON. MARQUEZ CATH BELOW PATIENT DRAINGING BY GRAVITY. VSS, RN WILL TREAT AND MONITOR THROUGHOUT SHIFT. SAFETY MEASURES IN PLACE, BED LOCKED AND IN LOWEST POSITION, SIDE RAILS UPX2, CALL LIGHT WITHIN REACH, BED ALARM ARMED.
[2021-02-13 08:40] LABS: ABG BASE EXCESS -9.9 mmol/L; ABG OXYGEN SATURATION 97.4 % (92.0-98.5); ABG PCO2 24.3 mmHg (35.0-45.0); ABG PO2 142.7 mmHg (75.0-100.0); AaDO2 42.7 mmHg; COHb 0.7 % (0.5-1.5); MetHb 0.1 % (0.0-1.5); O2Hb 96.6 % (94.0-97.0); PEEP,BG 5 cm H2O; SITE, ABG Right Radial; VT, ABG 450 mL
[2021-02-13 08:57] LABS: LYMPHOCYTES % (MANUAL) 3 % (16-48); MONOCYTES % (MANUAL) 1 % (0-11.0); NEUTROPHILS % (MANUAL) 96 (42-76)
[2021-02-13] MEDS: DAKINS QUARTER STRENGTH (0.125%) 480 ML BOTTLE TOP SCH (09:08)
[2021-02-13] MEDS: PANTOPRAZOLE 40 MG VIAL IV SCH ×2 (09:08→21:00)
[2021-02-13] MEDS ORDERED: POTASSIUM CL. PREMIX PERIPHER. 50 ML IV SCH (09:30)
[2021-02-13] MEDS ORDERED: Magnesium 1GM/D5W 100ML PREMIX 100 ML IV SCH (09:30)
--- NOTE | 2021-02-13 19:19 | NUR ---
RN NOTES PT FOUND SEMI BRONSON'S DISPLAYING NO S/S OF DISTRESS, FLACC = 0 AND BILATERAL RISE AND FALL OF THE CHEST OBSERVED. ALTHOUGH PT NOT SEDATED, RIKERS = 3. R UA PICC IS CLEAN, DRY AND PATIENT. MARQUEZ CATH BELOW PATIENT DRAINGING BY GRAVITY. SBAR AND REPORT GIVEN TO IS/IT PROJECT MANAGER RN, ALL QUESTIONS ANSWERED. SAFETY MEASURES IN PLACE, BED LOCKED AND IN LOWEST POSITION, SIDE RAILS UPX2, CALL LIGHT WITHIN REACH, BED ALARM ARMED. PT ENDORSED IN STABLE CONDITION FOR SUSANNE.
[2021-02-13] MEDS: FLUCONAZOLE IN NS 100 MG in PREMIX 1 EA IV SCH (21:00)
[2021-02-13] MEDS: VANCOMYCIN 500 MG in IV D5W 100 ML IV SCH (22:00)
[2021-02-14] VITALS (29 sets, daily range): BP systolic 94–149; BP diastolic 45–71
[2021-02-14] MEDS: Sodium Bicarbonate 100 MEQ in IV D5 / 0.2% NACL 1,000 ML IV SCH ×3 (01:05→20:06)
[2021-02-14] MEDS: MEROPENEM 1 G in IV NS 0.9% 100 ML IV SCH ×2 (04:00→17:08)
[2021-02-14] MEDS: HYDROCORTISONE SOD SUCCINATE 100 MG/2 ML VIAL IV SCH ×3 (05:02→20:23)
[2021-02-14] MEDS: BLOOD SUGAR DIAGNOSTIC 1 EACH STRIP IN SCH ×4 (05:02→23:03)
[2021-02-14 05:06] LABS: BASOPHILS % (AUTO) 0.1 % (0.0-2.0); HEMATOCRIT 23 % (33-45); HEMOGLOBIN 7.3 g/dL (11.5-14.8); LYMPHOCYTES # (AUTO) 0.9 K/uL (0.8-4.8); LYMPHOCYTES % (AUTO) 5.1 % (20.0-44.0); MEAN CORPUSCULAR HGB CONC 31 g/dl (31.0-36.0); MEAN CORPUSCULAR VOLUME 67 fL (82-100); MONOCYTES # (AUTO) 0.4 K/uL (0.1-1.30); MONOCYTES % (AUTO) 2.4 % (2.0-12.0); NEUTROPHILS # (AUTO) 16.5 K/uL (1.8-8.9); NEUTROPHILS % (AUTO) 92.4 % (43.0-81.0); PLATELET COUNT (AUTO) 144 K/uL (150-450); RED BLOOD CELL COUNT(AUTO) 3.47 MIL/uL (4.0-5.2); WHITE BLOOD COUNT (AUTO) 17.8 K/uL (4.3-11.0)
[2021-02-14 05:19] LABS: BILIRUBIN,TOTAL 0.5 mg/dL (0.2-1.0); CALCIUM, SERUM 6.3 mg/dL (8.5-10.1); CREATININE 1.3 mg/dL (0.6-1.3); MAGNESIUM 1.9 mg/dL (1.8-2.4); PHOSPHORUS 3.6 mg/dL (2.5-4.9); TOTAL PROTEIN, SERUM 4.3 g/dL (6.4-8.2)
[2021-02-14 05:28] LABS: POTASSIUM 2.8 mmol/L (3.5-5.1)
[2021-02-14] MEDS: INSULIN REGULAR, HUMAN 100 UNIT/ML 3 ML VIAL SQ PRN ×4 (05:50→23:04)
[2021-02-14 06:22] LABS: LYMPHOCYTES % (MANUAL) 5 % (16-48); MONOCYTES % (MANUAL) 4 % (0-11.0); NEUTROPHILS % (MANUAL) 91 (42-76)
[2021-02-14] MEDS: POTASSIUM CL. PREMIX PERIPHER. 50 ML IV SCH ×6 (06:40→12:23)
--- NOTE | 2021-02-14 07:20 | NUR ---
RN NOTES PT FOUND SEMI BRONSON'S DISPLAYING NO S/S OF DISTRESS, FLACC = 0 AND BILATERAL RISE AND FALL OF THE CHEST OBSERVED. R UA PICC PATIENT AND INTACT. MARQUEZ CATH BELOW PATIENT DRAINGING BY GRAVITY. VSS, RN WILL TREAT AND MONITOR THROUGHOUT SHIFT. SAFETY MEASURES IN PLACE, BED LOCKED AND IN LOWEST POSITION, SIDE RAILS UPX2, CALL LIGHT WITHIN REACH, BED ALARM ARMED.
[2021-02-14] MEDS: LEVOTHYROXINE SODIUM 25 MCG TABLET PO SCH (07:30)
[2021-02-14] MEDS: DAKINS QUARTER STRENGTH (0.125%) 480 ML BOTTLE TOP SCH (08:55)
[2021-02-14] MEDS: PANTOPRAZOLE 40 MG VIAL IV SCH ×2 (08:55→20:23)
[2021-02-14 11:11] LABS: ABG BASE EXCESS -0.4 mmol/L; ABG OXYGEN SATURATION 97.3 % (92.0-98.5); ABG PCO2 26.7 mmHg (35.0-45.0); ABG PH 7.532 (7.350-7.450); ABG PO2 142.4 mmHg (75.0-100.0); AaDO2 40.1 mmHg; COHb 1.1 % (0.5-1.5); MetHb 0.1 % (0.0-1.5); O2Hb 96.1 % (94.0-97.0); PEEP,BG 5 cm H2O; SITE, ABG Right Radial; VENT MODE, BG CPAP PS 10
--- NOTE | 2021-02-14 11:15 | NUR ---
RT PER DR PRECIADO PATIENT WEANING ON CPAP AND EXTUBATED POST ABG RESULTS. PATIENT PLACED ON SUPPLEMENTAL O2 VIA NASAL CANNULA HANNAH WELL. Addendum: 02/14/21 at 1140 by GAMA MEEHAN RT Amended: Links added.
--- NOTE | 2021-02-14 11:55 | NUR ---
MD VISIT DR. BYNUM VISITED, PERFORMED ASSESSMENT, GAVE ORDERS: NA BICARB DOWN TO 75 ML/HR, SWALLOW EVALUATION AND IF FAILS, INSERT NG TUBE FOR FEEDING.
[2021-02-14] MEDS: VANCOMYCIN 500 MG in IV D5W 100 ML IV SCH (22:00)
[2021-02-15] VITALS (19 sets, daily range): BP systolic 99–127; BP diastolic 44–67
--- NOTE | 2021-02-15 | NUR ---
RN NOTES PT FOUND SEMI FOWLERS DISPLAYING NO S/S OF DISTRESS, FLACC = 0 AND BREATHING IS EVEN AND UNLABORED ON 02 NC. R UA PICC PATIENT AND INTACT. WOUND CARE PERFORMED, BM CLEANED. MARQUEZ CATH BELOW PATIENT DRAINING BY GRAVITY. SBAR AND REPORT GIVEN TO DRUG DISCOVERY INFORMATICS SPECIALIST RN FOR REMAINDER OF SHIFT. ALL QUESTIONS ANSWERED. SAFETY MEASURES IN PLACE, BED LOCKED AND IN LOWEST POSITION, SIDE RAILS UPX2, CALL LIGHT WITHIN REACH, BED ALARM ARMED. PT ENDORSED IN STABLE CONDITION FOR SUSANNE.
[2021-02-15] MEDS: MEROPENEM 1 G in IV NS 0.9% 100 ML IV SCH ×2 (04:00→17:04)
[2021-02-15] MEDS: HYDROCORTISONE SOD SUCCINATE 100 MG/2 ML VIAL IV SCH ×3 (04:02→21:22)
[2021-02-15 04:42] LABS: HEMATOCRIT 24 % (33-45); HEMOGLOBIN 7.4 g/dL (11.5-14.8); LYMPHOCYTES # (AUTO) 0.9 K/uL (0.8-4.8); LYMPHOCYTES % (AUTO) 4.6 % (20.0-44.0); MEAN CORPUSCULAR HGB CONC 31 g/dl (31.0-36.0); MEAN CORPUSCULAR VOLUME 68 fL (82-100); MONOCYTES # (AUTO) 0.5 K/uL (0.1-1.30); MONOCYTES % (AUTO) 2.3 % (2.0-12.0); NEUTROPHILS # (AUTO) 18.1 K/uL (1.8-8.9); NEUTROPHILS % (AUTO) 93.1 % (43.0-81.0); PLATELET COUNT (AUTO) 210 K/uL (150-450); RED BLOOD CELL COUNT(AUTO) 3.52 MIL/uL (4.0-5.2); WHITE BLOOD COUNT (AUTO) 19.4 K/uL (4.3-11.0)
[2021-02-15 05:01] LABS: ALANINE AMINOTRANSFERASE 39 U/L (12-78); ALKALINE PHOSPHATASE 168 U/L (46-116); ASPARTATE AMINOTRANSFERASE 40 U/L (15-37); BILIRUBIN,TOTAL 0.5 mg/dL (0.2-1.0); CALCIUM, SERUM 6.6 mg/dL (8.5-10.1); CARBON DIOXIDE 25 mmol/L (21-32); CHLORIDE 109 mmol/L (98-107); CREATININE 1.1 mg/dL (0.6-1.3); GLUCOSE 194 mg/dL (74-106); MAGNESIUM 1.8 mg/dL (1.8-2.4); PHOSPHORUS 3.1 mg/dL (2.5-4.9); POTASSIUM 3.4 mmol/L (3.5-5.1); SODIUM SERUM 143 mmol/L (136-145); TOTAL PROTEIN, SERUM 4.2 g/dL (6.4-8.2); UREA NITROGEN, BLOOD 55 mg/dL (7-18)
[2021-02-15] MEDS: BLOOD SUGAR DIAGNOSTIC 1 EACH STRIP IN SCH ×4 (05:17→23:20)
[2021-02-15 05:20] LABS: ALBUMIN 0.9 g/dL (3.4-5.0)
[2021-02-15] MEDS: INSULIN REGULAR, HUMAN 100 UNIT/ML 3 ML VIAL SQ PRN ×4 (05:46→23:25)
[2021-02-15] MEDS: LEVOTHYROXINE SODIUM 25 MCG TABLET PO SCH (07:30)
--- NOTE | 2021-02-15 07:56 | NUR ---
RN NOTE RECEIVED PATIENT FROM KOSTAS LEIVA. PATIENT IS IN BED WITH HOB AT [facility]. PATIENT IS ON ROOM AIR WITH NO SIGNS OF LABORED BREATHING. PATIENT IS AOX0. WILL CONTINUE TO MONITOR THROUGHOUT SHIFT.
[2021-02-15] MEDS: PANTOPRAZOLE 40 MG VIAL IV SCH ×2 (08:22→21:22)
[2021-02-15] MEDS: DAKINS QUARTER STRENGTH (0.125%) 480 ML BOTTLE TOP SCH (08:23)
[2021-02-15] MEDS: Sodium Bicarbonate 100 MEQ in IV D5 / 0.2% NACL 1,000 ML IV SCH ×2 (08:49→23:14)
--- NOTE | 2021-02-15 09:16 | NUR ---
WOUND CARE FOLLOW UP: PT SEEN FOR RE-EVALUATION OF SACRAL DEEP TISSUE INJURY WHICH IS NOW IN EVOLUTION. RECOMMENDATIONS MADE FOR SKIN PROTECTION AND WOUND CARE. WOUND TREATMENT ORDERS UPDATED AND DISCUSSED WITH NURSING STAFF. APPRECIATE SURGICAL FOLLOW UP FOR WOUNDS. PT CONTINUES TO HAVE GENERALIZED EDEMA AND MULTIPLE CO-MORBIDITIES INCLUDING SEPTIC SHOCK, CECAL MASS/STATUS POST SURGICAL PROCEDURE, MALNUTRITION, AND DIABETES. DIETARY FOLLOW UP NEEDED. DUE TO MULTIPLE CO-MORBIDITIES, FURTHER SKIN BREAKDOWN MAY BE UNAVOIDABLE. PT IS NOW EXTUBATED. PT IS ON MILTON ISOFLEX LOW AIRLOSS BED. IN AGREEMENT WITH PLAN OF CARE. Addendum: 02/15/21 at 0920 by AN SOL WNDNU Amended: Links added.
[2021-02-15] MEDS: POTASSIUM CL. PREMIX PERIPHER. 50 ML IV SCH ×2 (10:04→11:03)
[2021-02-15 10:47] LABS: BAND % (MANUAL) 2 % (0.0-5.0); LYMPHOCYTES % (MANUAL) 3 % (16-48); MONOCYTES % (MANUAL) 2 % (0-11.0); NEUTROPHILS % (MANUAL) 93 (42-76)
--- NOTE | 2021-02-15 18:13 | NUR ---
RN NOTE TRANSFERRED PATIENT TO [facility] ROOM 112-2.
--- NOTE | 2021-02-15 18:48 | NUR ---
RN CLOSING NOTE PATIENT IS RESTING IN BED, ON ROOM AIR WITH O2 SAT OF ABOVE 95%, NO COMPLAINTS OF PAIN OR SOB AT THIS TIME. SAFETY PROTOCOL IN PLACE, BED IN LOWEST POSITION, CALL LIGHT WITHIN REACH, SIDE RAILS X2.
--- NOTE | 2021-02-15 19:57 | NUR ---
RN NOTE PATIENT ALERT AND ORIENTED X1. ON ROOM AIR, NO S/S OF ACUTE RESPIRATORY DISTRESS. NO SIGNS OF DISCOMFORT AT THIS TIME. MARQUEZ CATH NOTED, DRAINING URINE VIA GRAVITY. IV ACCESS ON LEFT FOREARM #20 AND SHERLEY PICC LINE PATENT AND INTACT, INFUSING D5 1/4 NS NA BICARB 100MEQ @ 75ML/HR, NO S/S OF INFILTRATION. BED LOCKED AND IN LOWEST POSITION. CALL LIGHT WITHIN REACH. ALL NEEDS ANTICIPATED.
[2021-02-15] MEDS: VANCOMYCIN 500 MG in IV D5W 100 ML IV SCH (21:22)
[2021-02-15] MEDS: IV NS 0.9% 1,000 ML IV SCH (23:32)
[2021-02-16 04:00] VITALS: BP 126/67
[2021-02-16] MEDS: HYDROCORTISONE SOD SUCCINATE 100 MG/2 ML VIAL IV SCH ×3 (05:06→20:58)
[2021-02-16] MEDS: MEROPENEM 1 G in IV NS 0.9% 100 ML IV SCH ×2 (05:06→17:07)
[2021-02-16] MEDS: BLOOD SUGAR DIAGNOSTIC 1 EACH STRIP IN SCH ×3 (05:46→17:32)
[2021-02-16] MEDS: INSULIN REGULAR, HUMAN 100 UNIT/ML 3 ML VIAL SQ PRN ×3 (05:49→17:34)
[2021-02-16 06:37] LABS: BASOPHILS % (AUTO) 0.1 % (0.0-2.0); HEMATOCRIT 25 % (33-45); HEMOGLOBIN 7.7 g/dL (11.5-14.8); LYMPHOCYTES % (AUTO) 4.9 % (20.0-44.0); MEAN CORPUSCULAR HGB CONC 31 g/dl (31.0-36.0); MEAN CORPUSCULAR VOLUME 67 fL (82-100); MONOCYTES # (AUTO) 0.5 K/uL (0.1-1.30); MONOCYTES % (AUTO) 2.3 % (2.0-12.0); NEUTROPHILS # (AUTO) 19.1 K/uL (1.8-8.9); NEUTROPHILS % (AUTO) 92.7 % (43.0-81.0); PLATELET COUNT (AUTO) 293 K/uL (150-450); RED BLOOD CELL COUNT(AUTO) 3.68 MIL/uL (4.0-5.2); WHITE BLOOD COUNT (AUTO) 20.6 K/uL (4.3-11.0)
[2021-02-16 06:55] LABS: BILIRUBIN,TOTAL 0.6 mg/dL (0.2-1.0); CALCIUM, SERUM 7.1 mg/dL (8.5-10.1); CREATININE 0.9 mg/dL (0.6-1.3); MAGNESIUM 1.8 mg/dL (1.8-2.4); PHOSPHORUS 3.2 mg/dL (2.5-4.9); POTASSIUM 3.7 mmol/L (3.5-5.1); TOTAL PROTEIN, SERUM 4.3 g/dL (6.4-8.2)
--- NOTE | 2021-02-16 06:55 | NUR ---
RN NOTE PATIENT ALERT AND ORIENTED X1. ON ROOM AIR, NO S/S OF ACUTE RESPIRATORY DISTRESS. MARQUEZ CATH OUTPUT 425 IGLESIA URINE. NOTED WITH X2 BM, KEPT CLEAN AND DRY. TURNED AND REPOSITIONED. IV ACCESS ON LEFT FOREARM #20 AND SHERLEY PICC LINE PATENT AND INTACT, INFUSING NS @ 75ML/HR, NO S/S OF INFILTRATION. BED LOCKED AND IN LOWEST POSITION. CALL LIGHT WITHIN REACH. WILL ENDORSE TO AM SHIFT.
--- NOTE | 2021-02-16 07:32 | NUR ---
RN OPENING NOTE RECEIVE REPORT FROM HUNTER SKIN DIVER NURSE. PATIENT IN STABLE CONDITION AT TIME OF REPORT. ON ROOM AIR WITH O2 SAT AT 98%. HAD DIALYSIS YESTERDAY AND 3L WAS REMOVED. PATIENT IS AMBULATORY. HGB THIS MORNING IS 6.9. WILL FOLLOW UP WITH DOCTOR. WILL FOLLOW UP AM LAB. POSSIBLE DAILY HD. ALL SAFETY MEASURE IN PLACE. BED ON LOWEST POSITION WITH HOB ELEVATED WITH 3 SIDE RAIL UP. CALL LIGHT WITHIN REACH. WILL CONTINUE TO MONITOR.
--- NOTE | 2021-02-16 07:33 | NUR ---
RN OPENING NOTE PATIENT ALERT AND ORIENTED X1. ON ROOM AIR, NO S/S OF ACUTE RESPIRATORY DISTRESS. NO SIGNS OF DISCOMFORT AT THIS TIME. MARQUEZ CATH NOTED, DRAINING URINE VIA GRAVITY. IV ACCESS ON LEFT FOREARM #20 AND SHERLEY PICC LINE PATENT AND INTACT, INFUSING D5 1/4 NS NA BICARB 100MEQ @ 75ML/HR, NO S/S OF INFILTRATION. BED LOCKED AND IN LOWEST POSITION. CALL LIGHT WITHIN REACH.
[2021-02-16] MEDS: PANTOPRAZOLE 40 MG VIAL IV SCH ×2 (08:03→20:58)
[2021-02-16] MEDS: LEVOTHYROXINE SODIUM 25 MCG TABLET PO SCH (08:03)
[2021-02-16] MEDS: DAKINS QUARTER STRENGTH (0.125%) 480 ML BOTTLE TOP SCH (08:10)
--- NOTE | 2021-02-16 08:34 | NUR ---
RN NOTE PATIENT REFUSED ALL AM MEDS AND VITALS, EDUCATED PATIENT ON IMPORTANCE OF MEDICATION AND VITAL SIGNS PATIENT INSISTED IN DECLINING MEDICATIONS AND VITALS. Addendum: 02/16/21 at 0836 by SADIE MCNAMARA RN DISREGARD NOTE
[2021-02-16] MEDS: ALBUMIN 25% 25 GM in PREMIX 1 EA IV SCH ×2 (08:57→20:59)
[2021-02-16 09:03] LABS: IRON, SERUM 20 ug/dl (50-175); TOTAL IRON BINDING CAPACITY 61 ug/dl (250-450)
[2021-02-16 09:17] LABS: FERRITIN 242 ng/mL (8-388)
[2021-02-16 09:29] VITALS: BP 141/71
[2021-02-16] MEDS: PROSOURCE / PROSTAT (PYXIS) 30 ML UDC PO SCH ×3 (09:59→17:08)
[2021-02-16 10:33] LABS: LYMPHOCYTES % (MANUAL) 3 % (16-48); MONOCYTES % (MANUAL) 2 % (0-11.0); NEUTROPHILS % (MANUAL) 95 (42-76)
[2021-02-16] MEDS: IV NS 0.9% 1,000 ML IV SCH (12:02)
[2021-02-16] MEDS: FERROUS SULFATE (325 MG) 325 MG/TAB TABLET PO SCH ×3 (15:17→17:08)
--- NOTE | 2021-02-16 15:24 | NUR ---
SS Consult: SS Consult requested for Code status discussion wanted by sister, Alirio Vasquez [phone]. SW called Alirio and she stated that as the next of Kin she has been asked about the pt.'s wishes for healthcare. However, Alirio states he pt. never left an advanced healthcare directive. Alirio stated that Les Morrison from Public Guardian's office [phone] may be able to address some questions. Alirio stated Les is assisting with he process of getting a Public Guardian to assist with healthcare decisions as Alirio is 7 years older than the pt. and lives out of state. ALIRIO stated it would be difficult for her to be the pt.'s responsible democrat. Noted. EFE called Les and left voicemail with SW call back number.
[2021-02-16 16:00] VITALS: BP 131/67
--- NOTE | 2021-02-16 18:33 | NUR ---
RN CLOSING NOTE PATIENT RESTING IN BED, ON RA WITH O2 SAT ABOVE 95% THROUGH OUT SHIFT. NO COMPLAINTS OF PAIN OR SHORTNESS OF BREATH. NEEDS MET DURING SHIFT, PATIENT REPOSITIONED PER PROTOCOL THROUGHOUT SHIFT. ALL MEDICATION GIVEN, WOUND CARE PERFORMED. PATIENT IS ON PUREED DIET WITH HOB ELEVATED TO 45 DEGREES. IV ACCESS IN L FA 20 G AND SHERLEY PICC INTACT AND PATENT. SAFETY PROTOCOL IN PLACE, BED IN THE LOWEST POSITION AND LOCKED, SIDE RAILS UP X2, CALL LIGHT WITHIN REACH. WILL ENDORSE TO NIGHT NURSE FOR SUSANNE.
--- NOTE | 2021-02-16 19:30 | NUR ---
CHIMNEY MECHANIC OPENING NOTES: PATIENT IN BED, A/O X1, ON ROOM AIR, SATURATING 98%, MED SURG PATIENT, SHERLEY PICC LINE PATENT AND INTACT, L. FOREARM #20 PATENT AND INTACT, NS @ 75 ML/HR, NO SIGNS OF SOB OR DISTRESS NOTED. WILL CONTINUE TO MONITOR AND ADMINISTER NURSING INTERVENTIONS NECESSARY.
[2021-02-16 21:21] LABS: BILIRUBIN,DIRECT 0.3 mg/dL (0.0-0.2); BILIRUBIN,TOTAL 0.6 mg/dL (0.2-1.0); TOTAL PROTEIN, SERUM 4.6 g/dL (6.4-8.2)
[2021-02-16 21:27] LABS: ALBUMIN 1.3 g/dL (3.4-5.0)
[2021-02-16] MEDS: VANCOMYCIN 500 MG in IV D5W 100 ML IV SCH (21:55)
[2021-02-17] VITALS (23 sets, daily range): BP systolic 82–149; BP diastolic 41–88
[2021-02-17] MEDS: BLOOD SUGAR DIAGNOSTIC 1 EACH STRIP IN SCH ×4 (00:50→16:57)
[2021-02-17] MEDS: INSULIN REGULAR, HUMAN 100 UNIT/ML 3 ML VIAL SQ PRN ×3 (00:53→16:58)
[2021-02-17] MEDS: IV NS 0.9% 1,000 ML IV SCH ×2 (02:03→11:48)
--- NOTE | 2021-02-17 02:03 | NUR ---
BIOLOGICAL TECHNICAL OFFICER NOTES: PATIENT ALREADY HAS NS RUNNING AT 75 ML/HR WITH OVER 600 ML LEFT. WILL NOT ADMINISTER NEW BAG UNTIL THIS BAG IS DONE.
[2021-02-17] MEDS: HYDROCORTISONE SOD SUCCINATE 100 MG/2 ML VIAL IV SCH ×3 (05:20→21:12)
[2021-02-17] MEDS: MEROPENEM 1 G in IV NS 0.9% 100 ML IV SCH ×2 (05:20→16:15)
--- NOTE | 2021-02-17 06:23 | NUR ---
SUPERVISOR PULLET FARM NOTES: PATIENT IN BED, AWAKE, A/O X1, NO SIGNS OF DISTRESS, NO SOB, ON ROOM AIR, SATURATING 98%, L. FA#20 PATENT AND INTACT, SHERLEY PICC PATENT AND INTACT, RUNNING NS AT 75 ML/HR, BED AT LOWEST POSITION, SIDE RAILS UP X2, CALL LIGHT WITHIN REACH, BRAKES LOCKED AND IN POSITION, WILL CONTINUE TO MONITOR AND ENDORSE TO DAY SHIFT.
[2021-02-17 07:13] LABS: BILIRUBIN,DIRECT 0.3 mg/dL (0.0-0.2); BILIRUBIN,TOTAL 0.5 mg/dL (0.2-1.0); CALCIUM, SERUM 6.8 mg/dL (8.5-10.1); CREATININE 0.7 mg/dL (0.6-1.3); MAGNESIUM 1.6 mg/dL (1.8-2.4); POTASSIUM 3.1 mmol/L (3.5-5.1); TOTAL PROTEIN, SERUM 4.2 g/dL (6.4-8.2)
--- NOTE | 2021-02-17 07:20 | NUR ---
RN OPENING NOTE RECEIVED PATIENT IN BED. A/O X4. TELE READING SHOW SR 70's. ON ROOM AIR, TOLERATING WELL. IN NO APPARENT DISTRESS. R FA MIDLINE, INTACT AND PATENT. R FEMORAL HD CATH C/D/I. L AV FISTULA IS PRESENT. SAFETY MEASURES MAINTAINED. BED IN LOWEST POSITION, BRAKES LOCKED,. SIDE RAILS UP X2. CALL LIGHT WITHIN REACH. WILL CONTINUE PLAN OF CARE. Addendum: 02/17/21 at 0749 by LIZZETTE ACKERMAN RN PLEASE DISREGARD THIS NOTE. THIS IS FOR ANOTHER PATIENT. Addendum: 02/17/21 at 0753 by LIZZETTE ACKERMAN RN ENTRY ERROR
[2021-02-17 07:41] LABS: ALBUMIN 1.3 g/dL (3.4-5.0)
--- NOTE | 2021-02-17 07:50 | NUR ---
RN OPENING NOTE RECEIVED PATIENT IN BED, AWAKE. A/O X1-2. ON ROOM AIR, TOLERATING WELL. NO SOB NOTED. IN NO APPARENT DISTRESS. DENIES ANY PAIN OR DISCOMFORT AT THIS TIME. IV ACCESS ON SHERLEY PICC LINE AND L FA #20 G, NS RUNNING AT 75 ML/HR. MARQUEZ CATHETER IN PLACE DRAINING YELLOW URINE. SAFETY MEASURES MAINTAINED. BED IN LOWEST POSITION, BRAKES LOCKED. SIDE RAILS UP X2. CALL LIGHT WITHIN REACH. WILL CONTINUE PLAN OF CARE.
[2021-02-17 08:42] LABS: BASOPHILS % (AUTO) 0.1 % (0.0-2.0); HEMATOCRIT 29 % (33-45); HEMOGLOBIN 8.4 g/dL (11.5-14.8); LYMPHOCYTES # (AUTO) 1.1 K/uL (0.8-4.8); LYMPHOCYTES % (AUTO) 5.2 % (20.0-44.0); MEAN CORPUSCULAR HGB CONC 29 g/dl (31.0-36.0); MEAN CORPUSCULAR VOLUME 72 fL (82-100); MONOCYTES # (AUTO) 0.6 K/uL (0.1-1.30); MONOCYTES % (AUTO) 2.6 % (2.0-12.0); NEUTROPHILS # (AUTO) 19.7 K/uL (1.8-8.9); NEUTROPHILS % (AUTO) 92.1 % (43.0-81.0); PLATELET COUNT (AUTO) 290 K/uL (150-450); RED BLOOD CELL COUNT(AUTO) 3.99 MIL/uL (4.0-5.2); WHITE BLOOD COUNT (AUTO) 21.4 K/uL (4.3-11.0)
[2021-02-17] MEDS: LEVOTHYROXINE SODIUM 25 MCG TABLET PO SCH (10:02)
[2021-02-17] MEDS: PANTOPRAZOLE 40 MG VIAL IV SCH ×2 (10:03→21:12)
[2021-02-17] MEDS: FERROUS SULFATE (325 MG) 325 MG/TAB TABLET PO SCH ×3 (10:03→16:16)
[2021-02-17] MEDS: PROSOURCE / PROSTAT (PYXIS) 30 ML UDC PO SCH ×2 (10:04→16:17)
[2021-02-17] MEDS: DAKINS QUARTER STRENGTH (0.125%) 480 ML BOTTLE TOP SCH (10:05)
[2021-02-17] MEDS ORDERED: IV NS 0.9% 1,000 ML IV PRN ×2 (11:59→19:00)
[2021-02-17] MEDS: IV 1/2NS 1000 ML 1,000 ML IV SCH (12:33)
[2021-02-17] MEDS: Magnesium 1GM/D5W 100ML PREMIX 100 ML IV SCH ×2 (12:41→13:46)
[2021-02-17] MEDS: POTASSIUM CL. PREMIX PERIPHER. 50 ML IV SCH ×2 (14:37→16:17)
--- NOTE | 2021-02-17 15:31 | NUR ---
SW received call from Les Morrison at Public Guardian's office who stated that the pt. now has a conservator, Twila Lorenzo [phone]. Noted.
[2021-02-17] MEDS ORDERED: EPINEPHRINE (1:10,000) SYRINGE 1 MG/10 ML DISP.SYRIN IVP ONE (17:54)
[2021-02-17] MEDS ORDERED: SODIUM BICARBONATE SYR 50 MEQ/50 ML DISP.SYRIN IV ONE (17:54)
--- NOTE | 2021-02-17 18:08 | NUR ---
RT SHAE GUADALUPE, CPR STARTED. PATIENT INTUBATED BY DR BUSTAMANTE WITH A 7.5 ETT SECURED AT 24CM LIP. ROSC ACHIEVED. PATIENT TRANSFEE Addendum: 02/17/21 at 1811 by GAMA MEEHAN RT Amended: Links added.
--- NOTE | 2021-02-17 18:11 | NUR ---
RT PATIENT TRANSFERRED TO ICU PLACED ON MECH VENT WITH ORDERS GIVEN BY DR CARSON. ALARMS CHECKED + AUDIBLE. AMBU BAG AT [facility].
--- NOTE | 2021-02-17 18:16 | NUR ---
NITRATING ACID MIXER NOTES; PT TRANSFERRED FROM [facility]. NONPROFIT MANAGER WAS MAKING ROUNDS. PT WAS LETHARGIC, NO PULSE AND PALE. CODED AT APPROXIMATELY 1800. PT INTUBATED, ON MECH VENT WITH SETTINGS ORDERED. PT A/OX1, SEDATED. PT ABDOMINAL WOUND NOTED, SACRAL WOUND NOTED, PACKED AND DRESSED. PICTURES ALREADY IN CHART. REPORT RECEIVED FROM [facility] RN. PT KEPT CLEAN, DRY AND COMFORTABLE. SAFETY MEASURES RENDERED, BED LOCKED IN LOWEST POS, SIDE RAILS X2, WITH CALL LIGHT WITHIN REACH. WILL CONTINUE TO MONITOR.
[2021-02-17] MEDS: PHENYLEPHRINE 50 MG in IV NS 0.9% 245 ML IV PRN (19:24)
--- NOTE | 2021-02-17 19:26 | NUR ---
RCVD PT ORALLY INTUBATED WITH 7.5 ETT SECURED @ 24 CM LIP LINE ON VENT WITH THE SETTINGS OF AC 12, VT 450,FIO2 100% PEEP 5 . VENT PLUGGED INTO RED OUTLET , VENT ALARMS ON AND AUDIBLE. ABG DONE. NO RESPIRATORY DISTRESS NOTED AT THIS TIME. WILL CONTINUE TO MONITOR PT T/O SHIFT.
[2021-02-17] MEDS: PROPOFOL 100 ML IV PRN (19:32)
--- NOTE | 2021-02-17 19:36 | NUR ---
RN NOTE PATIENT WAS FOUND LETHARGIC AND UNRESPONSIVE, PULSELESS. CODE BLUE WAS ACTIVATED. INITIATED CPR, 2 DOSES OF EPINEPHRINE WAS GIVEN. ATTACHED TO A RELATIONSHIP ASSOCIATE. PATIENT WAS INTUBATED, PULSE HAS BEEN NOTED. TRANSFERRED TO ICU RM 254 AND HAS BEEN CONNECTED TO A MECHANICAL VENTILATOR. VS BP 146/78 AK 106 RR 19 SA02 99%. DIVYA, PATIENT'S SISTER WAS ALSO INFORMED ABOUT THE SITUATION. HER NO. IS [phone]. PER CHEF DE CUISINE'S NOTES, PATIENT HAS A CONSERVATOR NAMED HAN ARREOLA.REPORT WAS GIVEN TO KOSTAS CURRAN FOR SUSANNE.
--- NOTE | 2021-02-17 20:00 | NUR ---
BASED UPON THE RESULT OF ABG , DECREASED TIDAL VOLUME TO 400 AND TITRATE O2 TO 80% PER DR. CARSON ORDER. KOSTAS JAMES NOTIFIED. NO RESPIRATORY DISTRESS NOTED AT THIS TIME , WILL CONTINUE TO MONITOR T/O SHIFT.
--- NOTE | 2021-02-17 20:14 | NUR ---
ICU/RN: ABG RESULTS RELAYED TO DR. CARSON VENT CHANGES ORDERED AND CARRIED OUT.
[2021-02-17 20:43] LABS: ABG BASE EXCESS 0.4 mmol/L; ABG PCO2 31.5 mmHg (35.0-45.0); ABG PH 7.491 (7.350-7.450); AaDO2 439.5 mmHg; COHb 0.4 % (0.5-1.5); MetHb 0.3 % (0.0-1.5); O2Hb 97.3 % (94.0-97.0); PEEP,BG 5 cm H2O; SITE, ABG Left Radial; VT, ABG 450 mL
[2021-02-17] MEDS: VANCOMYCIN 500 MG in IV D5W 100 ML IV SCH (21:12)
--- NOTE | 2021-02-17 23:27 | NUR ---
titrate o2 to 65%. no respiratory distress noted. spo2 98% , will continue to monitor pt t/o shift
[2021-02-18] VITALS (95 sets, daily range): BP systolic 81–136; BP diastolic 31–75
[2021-02-18] MEDS: BLOOD SUGAR DIAGNOSTIC 1 EACH STRIP IN SCH ×4 (00:15→17:58)
[2021-02-18] MEDS: INSULIN REGULAR, HUMAN 100 UNIT/ML 3 ML VIAL SQ PRN ×2 (00:22→05:39)
[2021-02-18] MEDS: IV 1/2NS 1000 ML 1,000 ML IV SCH ×2 (01:50→14:23)
[2021-02-18 05:03] LABS: BASOPHILS % (AUTO) 0.1 % (0.0-2.0); HEMATOCRIT 25 % (33-45); HEMOGLOBIN 7.6 g/dL (11.5-14.8); LYMPHOCYTES # (AUTO) 1.1 K/uL (0.8-4.8); LYMPHOCYTES % (AUTO) 2.7 % (20.0-44.0); MEAN CORPUSCULAR HGB CONC 31 g/dl (31.0-36.0); MEAN CORPUSCULAR VOLUME 70 fL (82-100); MONOCYTES # (AUTO) 0.7 K/uL (0.1-1.30); MONOCYTES % (AUTO) 1.6 % (2.0-12.0); NEUTROPHILS # (AUTO) 40.2 K/uL (1.8-8.9); NEUTROPHILS % (AUTO) 95.6 % (43.0-81.0); PLATELET COUNT (AUTO) 243 K/uL (150-450); RED BLOOD CELL COUNT(AUTO) 3.56 MIL/uL (4.0-5.2)
[2021-02-18 05:18] LABS: CALCIUM, SERUM 7.4 mg/dL (8.5-10.1); CREATININE 0.7 mg/dL (0.6-1.3); POTASSIUM 3.2 mmol/L (3.5-5.1)
[2021-02-18] MEDS: MEROPENEM 1 G in IV NS 0.9% 100 ML IV SCH ×2 (05:26→16:34)
[2021-02-18] MEDS: HYDROCORTISONE SOD SUCCINATE 100 MG/2 ML VIAL IV SCH ×3 (05:27→21:35)
[2021-02-18 06:43] LABS: WHITE BLOOD COUNT (AUTO) 42.1 K/uL (4.3-11.0)
--- NOTE | 2021-02-18 07:00 | NUR ---
RN NOTES RECEIVED PT ON BED INTUBATED, SEDATED, RESPONDS TO PAINFUL STIMULI, ON DIPRIVAN AT 15 MCG/KG/MIN, ON JOSE AT .7 MCG/KG/MIN FOR BP SUPPORT, IVF AT 80 CC/HR RUNNING , ON TELE SR HR IN 70'S , R UPPER ARM PICC LINE SITE CLEAN ,DRY AND INTACT, MARQUEZ DRAINING TO GRAVITY, SR UP x3, CALL LIGHT WITHIN EASY REACH, BED LOCKED AND IN LOWEST POSITION, CONTINUE TO MONITOR .
--- NOTE | 2021-02-18 07:05 | NUR ---
RN NOTES T-93.3 , PT PLACED ON WARM BLANKET .
[2021-02-18 07:42] LABS: ABG BASE EXCESS 3.8 mmol/L; ABG OXYGEN SATURATION 96.2 % (92.0-98.5); ABG PCO2 36.8 mmHg (35.0-45.0); ABG PH 7.489 (7.350-7.450); ABG PO2 94.1 mmHg (75.0-100.0); AaDO2 329.3 mmHg; COHb 1.3 % (0.5-1.5); MetHb 0.3 % (0.0-1.5); O2Hb 94.7 % (94.0-97.0); SITE, ABG Right Radial; VENT MODE, BG AC 12 400 65% +5
[2021-02-18 08:17] LABS: LYMPHOCYTES % (MANUAL) 4 % (16-48); MONOCYTES % (MANUAL) 1 % (0-11.0); NEUTROPHILS % (MANUAL) 95 (42-76)
[2021-02-18] MEDS: PANTOPRAZOLE 40 MG VIAL IV SCH ×2 (08:34→21:35)
[2021-02-18] MEDS: ALBUMIN 25% 25 GM in PREMIX 1 EA IV SCH ×2 (09:00→19:57)
[2021-02-18] MEDS: FERROUS SULFATE (325 MG) 325 MG/TAB TABLET PO SCH ×3 (09:20→16:34)
[2021-02-18] MEDS: PROSOURCE / PROSTAT (PYXIS) 30 ML UDC PO SCH ×2 (09:20→16:35)
[2021-02-18] MEDS: LEVOTHYROXINE SODIUM 25 MCG TABLET PO SCH (09:20)
[2021-02-18] MEDS: DAKINS QUARTER STRENGTH (0.125%) 480 ML BOTTLE TOP SCH (09:21)
[2021-02-18 09:22] LABS: BILIRUBIN,DIRECT 0.3 mg/dL (0.0-0.2); BILIRUBIN,TOTAL 0.6 mg/dL (0.2-1.0); TOTAL PROTEIN, SERUM 4.5 g/dL (6.4-8.2)
[2021-02-18 09:28] LABS: ALBUMIN 1.3 g/dL (3.4-5.0)
[2021-02-18 09:30] LABS: BILIRUBIN,URINE NEGATIVE (NEGATIVE); COLOR,URINE YELLOW (YELLOW); LEUKOCYTE ESTERASE ,URINE NEGATIVE (NEGATIVE); NITRITE, URINE NEGATIVE (NEGATIVE); PROTEIN,URINE 30 mg/dl (NEGATIVE); UGLUCOSE 250 MG/DL mg/dL (NEGATIVE); UROBILINOGEN,URINE 0.2 EU/dL (0.2)
[2021-02-18 09:38] LABS: BACTERIA,URINE Rare /HPF (None Seen); RBC,URINE NONE SEEN /HPF (0-2); SQUAMOUS EPITHELIAL CELL,UR Few /HPF (None Seen); WBC,URINE 0-2 /HPF (0-3)
[2021-02-18 09:39] LABS: URINE AMORPHOUS URATE Many /HPF (None Seen)
[2021-02-18 09:57] LABS: THYROID STIMULATING HORMONE 7.586 uIU/mL (0.358-3.74)
[2021-02-18] MEDS: POTASSIUM CL. PREMIX PERIPHER. 50 ML IV SCH ×4 (10:23→13:42)
[2021-02-18] MEDS: LEVOTHYROXINE INJ 100 MCG VIAL IV SCH (11:21)
--- NOTE | 2021-02-18 12:00 | NUR ---
RN NOTES PT'S TEMPERATURE STILL LOW , PT ON WARM BLANKET , ON JOSE FOR BP SUPPORT. CONTINUE TO MONITOR .
[2021-02-18] MEDS: PROPOFOL 100 ML IV PRN (13:49)
[2021-02-18] MEDS ORDERED: POTASSIUM CL. PREMIX PERIPHER. 50 ML IV SCH (14:30)
[2021-02-18] MEDS: SOD FERRIC GLUC 125 MG in IV NS 0.9% 100 ML IV SCH (14:39)
--- NOTE | 2021-02-18 15:18 | NUR ---
End-of-Life Request: EFE emailed the :Bioethic document, with End-of-Life request form, and medical record, to pt.'s conservator, Twila Lorenzo [phone] at [email or web address] and to her supervisor paint, Tomás Grant at [email or web address] as requested by Twila. EFE will await for feedback.
--- NOTE | 2021-02-18 16:00 | NUR ---
RN NOTES PUBLIC GUARDIAN AT THE BEDSIDE, UPDATED INFORMATION GIVEN REGARDING PT STATUS .
--- NOTE | 2021-02-18 18:26 | NUR ---
RN NOTES PT REMANINS INTUBATED AND SEDATED , ON DIPRIVAN AT 15 MCG/KG/MIN, JOSE OFF AT THIS TIME , BP STABLE, IVF AT 100CC/HR RUNNING , PT STILL ON WARM BLANKET , T=94.3, MARQUEZ DRAINING TO GRAVITY, SR UP x3, CALL LIGHT WITHIN EASY REACH, BED LOCKED AND IN LOWEST POSITION, WILL ENDORSE TO SPRUE KNOCKER NURSE FOR CONTINUITY OF CARE.
[2021-02-18] MEDS: PHENYLEPHRINE 50 MG in IV NS 0.9% 245 ML IV PRN (19:30)
[2021-02-18 21:22] LABS: ALBUMIN 2.4 g/dL (3.4-5.0); BILIRUBIN,DIRECT 0.4 mg/dL (0.0-0.2); BILIRUBIN,TOTAL 0.8 mg/dL (0.2-1.0); TOTAL PROTEIN, SERUM 4.7 g/dL (6.4-8.2)
[2021-02-18] MEDS: METRONIDAZOLE 500 MG TABLET NG SCH (21:42)
[2021-02-18] MEDS: VANCOMYCIN 500 MG in IV D5W 100 ML IV SCH (21:49)
[2021-02-19] VITALS (83 sets, daily range): BP systolic 98–166; BP diastolic 37–94
[2021-02-19] MEDS: BLOOD SUGAR DIAGNOSTIC 1 EACH STRIP IN SCH ×4 (00:25→18:16)
[2021-02-19] MEDS: INSULIN REGULAR, HUMAN 100 UNIT/ML 3 ML VIAL SQ PRN ×2 (00:30→18:13)
[2021-02-19] MEDS: IV 1/2NS 1000 ML 1,000 ML IV SCH ×2 (02:32→13:01)
[2021-02-19] MEDS: PROPOFOL 100 ML IV PRN (02:34)
[2021-02-19 04:47] LABS: BASOPHILS % (AUTO) 0.1 % (0.0-2.0); LYMPHOCYTES # (AUTO) 0.6 K/uL (0.8-4.8); LYMPHOCYTES % (AUTO) 3.4 % (20.0-44.0); MEAN CORPUSCULAR HGB CONC 31 g/dl (31.0-36.0); MEAN CORPUSCULAR VOLUME 69 fL (82-100); MONOCYTES # (AUTO) 0.3 K/uL (0.1-1.30); MONOCYTES % (AUTO) 1.5 % (2.0-12.0); NEUTROPHILS # (AUTO) 17.8 K/uL (1.8-8.9); PLATELET COUNT (AUTO) 189 K/uL (150-450); WHITE BLOOD COUNT (AUTO) 18.7 K/uL (4.3-11.0)
[2021-02-19] MEDS: HYDROCORTISONE SOD SUCCINATE 100 MG/2 ML VIAL IV SCH ×3 (05:10→21:01)
[2021-02-19] MEDS: MEROPENEM 1 G in IV NS 0.9% 100 ML IV SCH ×2 (05:10→16:11)
[2021-02-19] MEDS: METRONIDAZOLE 500 MG TABLET NG SCH ×3 (05:10→21:01)
[2021-02-19 05:12] LABS: ALANINE AMINOTRANSFERASE 18 U/L (12-78); ALBUMIN 2.2 g/dL (3.4-5.0); ALKALINE PHOSPHATASE 185 U/L (46-116); ASPARTATE AMINOTRANSFERASE 17 U/L (15-37); BILIRUBIN,DIRECT 0.4 mg/dL (0.0-0.2); BILIRUBIN,TOTAL 0.8 mg/dL (0.2-1.0); CALCIUM, SERUM 7.9 mg/dL (8.5-10.1); CARBON DIOXIDE 27 mmol/L (21-32); CHLORIDE 110 mmol/L (98-107); CREATININE 0.6 mg/dL (0.6-1.3); GLUCOSE 120 mg/dL (74-106); POTASSIUM 3.6 mmol/L (3.5-5.1); SODIUM SERUM 145 mmol/L (136-145); TOTAL PROTEIN, SERUM 4.3 g/dL (6.4-8.2); UREA NITROGEN, BLOOD 30 mg/dL (7-18)
--- NOTE | 2021-02-19 05:34 | NUR ---
FIO2 TITRATED TO 40% RN NOTIFIED.
[2021-02-19 05:49] LABS: HEMATOCRIT 19 % (33-45); HEMOGLOBIN 5.8 g/dL (11.5-14.8)
--- NOTE | 2021-02-19 06:17 | NUR ---
ICU/RN: DR. SILVA PAGED ABOUT PT CRITICAL LABS H/H 5.10/22 AWAITING CALL BACK.
--- NOTE | 2021-02-19 07:00 | NUR ---
RN NOTES RECEIVED PT ON BED INTUBATED, SEDATED, RESPONDS TO PAINFUL STIMULI, ON DIPRIVAN AT 15 MCG/KG/MIN, ON JOSE AT .5 MCG/KG/MIN FOR BP SUPPORT, IVF AT 100 CC/HR RUNNING , ON TELE SR HR IN 60'S , R UPPER ARM PICC LINE SITE CLEAN ,DRY AND INTACT, MARQUEZ DRAINING TO GRAVITY, SR UP x3, CALL LIGHT WITHIN EASY REACH, BED LOCKED AND IN LOWEST POSITION, CONTINUE TO MONITOR .
[2021-02-19] MEDS: PANTOPRAZOLE 40 MG VIAL IV SCH ×2 (08:09→21:01)
[2021-02-19] MEDS: LEVOTHYROXINE INJ 100 MCG VIAL IV SCH (08:09)
[2021-02-19] MEDS: ALBUMIN 25% 25 GM in PREMIX 1 EA IV SCH ×2 (08:09→19:46)
[2021-02-19] MEDS: FERROUS SULFATE (325 MG) 325 MG/TAB TABLET PO SCH ×3 (08:10→16:09)
[2021-02-19] MEDS: PROSOURCE / PROSTAT (PYXIS) 30 ML UDC PO SCH ×2 (08:12→16:10)
[2021-02-19] MEDS: DAKINS QUARTER STRENGTH (0.125%) 480 ML BOTTLE TOP SCH (08:13)
--- NOTE | 2021-02-19 08:37 | NUR ---
DNR & COMFORT CARE UPDATE: Per [employer] management: the bioethics note has to be written by different doctor besides the one making recommendations and DNR/Comfort care had to be written out in note. New note was written by Dr. Zapata. The updated document and bioethics note were emailed to Conservator: Twila Lorenzo from [employer] office. SW will await response.
[2021-02-19 08:57] LABS: LYMPHOCYTES % (MANUAL) 1 % (16-48); MONOCYTES % (MANUAL) 1 % (0-11.0); NEUTROPHILS % (MANUAL) 98 (42-76)
[2021-02-19] MEDS ORDERED: LORAZEPAM INJ 2 MG/ML VIAL IV PRN (14:00)
--- NOTE | 2021-02-19 14:00 | NUR ---
RN NOTES PT FAILED CPAP MODE, PT PLACED BACK ON AC MODE ON VENTILATOR PER DR CARSON ORDER .
[2021-02-19] MEDS: SOD FERRIC GLUC 125 MG in IV NS 0.9% 100 ML IV SCH (14:38)
--- NOTE | 2021-02-19 16:00 | NUR ---
RN NOTES FAX POLSE RECEIVED FROM [employer] THAT PT IS DNR , DR YAJAIRA GREENWOOD . ALSO CALLED RECEIVED FROM DR GATES FOR DNR ( NO VASOPRESSORS ) CODE STATUS . ORDER PLACED ON THE CHART PER DR VALLECILLO ORDER .
--- NOTE | 2021-02-19 18:00 | NUR ---
RN NOTES PT RECEIVED TWO UNITS OF PRBC'S ON THIS SHIFT, TOLERATED WELL, PT OFF SEDATION AND OFF PRESSORS AT THIS TIME, BP STABLE. ON WARM BLANKET , T=97.0 AT THIS TIME, MARQUEZ DRAINING TO GRAVITY, IV SITE CLEAN ,DRY AND INTACT , SR UP x3, CALL LIGHT WITHIN EASY REACH, BED LOCKED AND IN LOWEST POSITION, WILL ENDORSE TO CASH REGISTER BALANCER NURSE FOR CONTINUITY OF CARE .
--- NOTE | 2021-02-19 20:05 | NUR ---
RECEIVED PT INTUBATED 7.5 ETT SECURED AT 24CM LIP LINE. NO RESP DISTRESS NOTED. SX'D SMALL AMT OF THICK YELLOW SECRETIONS. VENT ALARMS SET AND AUDIBLE. VENT PLUGGED INTO RED OUTLET. CONTINUE TO MONITOR. Addendum: 02/19/21 at 2006 by DULCE GUTIERREZ RT Amended: Links added.
[2021-02-19] MEDS: VANCOMYCIN 500 MG in IV D5W 100 ML IV SCH (21:01)
[2021-02-20] VITALS (27 sets, daily range): BP systolic 102–159; BP diastolic 49–79
[2021-02-20] MEDS: BLOOD SUGAR DIAGNOSTIC 1 EACH STRIP IN SCH ×5 (00:24→23:35)
[2021-02-20] MEDS: INSULIN REGULAR, HUMAN 100 UNIT/ML 3 ML VIAL SQ PRN ×2 (00:29→23:39)
[2021-02-20] MEDS: IV 1/2NS 1000 ML 1,000 ML IV SCH ×3 (02:28→21:41)
[2021-02-20] MEDS: HYDROCORTISONE SOD SUCCINATE 100 MG/2 ML VIAL IV SCH ×3 (05:13→21:13)
[2021-02-20] MEDS: MEROPENEM 1 G in IV NS 0.9% 100 ML IV SCH ×2 (05:14→17:13)
[2021-02-20] MEDS: METRONIDAZOLE 500 MG TABLET NG SCH ×3 (05:14→21:14)
--- NOTE | 2021-02-20 05:32 | NUR ---
MED NOTE: 1/2 NS@100 ML/HR NOT ADMINISTERED BECAUSE PREVIOUS BAG WAS JUST HUNG 3 HOURS AGO.
[2021-02-20 05:55] LABS: CALCIUM, SERUM 8.1 mg/dL (8.5-10.1); CARBON DIOXIDE 28 mmol/L (21-32); CHLORIDE 109 mmol/L (98-107); CREATININE 0.5 mg/dL (0.6-1.3); GLUCOSE 118 mg/dL (74-106); POTASSIUM 3.1 mmol/L (3.5-5.1); SODIUM SERUM 143 mmol/L (136-145); UREA NITROGEN, BLOOD 24 mg/dL (7-18)
[2021-02-20 05:59] LABS: BASOPHILS % (AUTO) 0.1 % (0.0-2.0); HEMATOCRIT 29 % (33-45); HEMOGLOBIN 9.2 g/dL (11.5-14.8); LYMPHOCYTES # (AUTO) 0.3 K/uL (0.8-4.8); LYMPHOCYTES % (AUTO) 1.6 % (20.0-44.0); MEAN CORPUSCULAR HGB CONC 32 g/dl (31.0-36.0); MEAN CORPUSCULAR VOLUME 75 fL (82-100); MONOCYTES # (AUTO) 0.1 K/uL (0.1-1.30); MONOCYTES % (AUTO) 0.6 % (2.0-12.0); NEUTROPHILS # (AUTO) 17.4 K/uL (1.8-8.9); NEUTROPHILS % (AUTO) 97.7 % (43.0-81.0); PLATELET COUNT (AUTO) 88 K/uL (150-450); RED BLOOD CELL COUNT(AUTO) 3.82 MIL/uL (4.0-5.2); WHITE BLOOD COUNT (AUTO) 17.8 K/uL (4.3-11.0)
--- NOTE | 2021-02-20 07:10 | NUR ---
RN OPENING NOTES: RECEIVED PT IN BED AT THIS TIME. INTUBATED 7.5 ETT SECURED AT 24CM LIP LINE. NO RESP DISTRESS NOTED. CLEAN, DRY AND INTACT SURGICAL DRESSING. PT ON [facility] VENT WITH VENT ALARMS SET AND AUDIBLE. VENT PLUGGED INTO RED OUTLET. WILL CONTINUE TO MONITOR.
[2021-02-20] MEDS: LEVOTHYROXINE INJ 100 MCG VIAL IV SCH (08:52)
[2021-02-20] MEDS: PANTOPRAZOLE 40 MG VIAL IV SCH ×2 (08:52→21:13)
[2021-02-20] MEDS: FERROUS SULFATE (325 MG) 325 MG/TAB TABLET PO SCH ×3 (08:52→17:13)
[2021-02-20] MEDS: POTASSIUM CL. PREMIX PERIPHER. 50 ML IV SCH ×4 (08:53→12:00)
[2021-02-20] MEDS: DAKINS QUARTER STRENGTH (0.125%) 480 ML BOTTLE TOP SCH (08:55)
[2021-02-20] MEDS: PROSOURCE / PROSTAT (PYXIS) 30 ML UDC PO SCH ×2 (08:55→17:14)
--- NOTE | 2021-02-20 10:00 | NUR ---
Received orders from dr Shin for lasix 40mg iv once at this time. orders read back and carried out. continue to monitor
[2021-02-20] MEDS ORDERED: FUROSEMIDE 40 MG/4 ML VIAL IV ONE (10:30)
[2021-02-20 10:38] LABS: LYMPHOCYTES % (MANUAL) 2 % (16-48); NEUTROPHILS % (MANUAL) 98 (42-76)
--- NOTE | 2021-02-20 12:43 | NUR ---
Received report from Iesha, charge nurse that blood cultures results came back Gram negative with rods, one of two bottles. Dr Duke and Zhou made aware. no new orders at this time. will continue to monitor
[2021-02-20 14:38] LABS: HEMOGLOBIN 10.4 g/dL (11.5-14.8)
[2021-02-20] MEDS: SOD FERRIC GLUC 125 MG in IV NS 0.9% 100 ML IV SCH (14:41)
--- NOTE | 2021-02-20 19:28 | NUR ---
RN CLOSING NOTE Patient in bed at this time, s patient remains stable throughout shift. all care, medications and wound treatment performed as anticipated per order. pt reposition q2h and prn. suctioned prn. safety precaution maintained at all times. endorsed to shift production supervisor nurse for lavelle
[2021-02-20] MEDS: VANCOMYCIN 500 MG in IV D5W 100 ML IV SCH (21:15)
[2021-02-20 23:08] LABS: HEMOGLOBIN 9.8 g/dL (11.5-14.8)
[2021-02-21] VITALS (46 sets, daily range): BP systolic 41–113; BP diastolic 25–60
--- NOTE | 2021-02-21 02:43 | NUR ---
ICU/RN: DR. SILVA NOTIFIED OF PT CURRENT BP 77/46. NEW ORDERS FOR 1000mL NS BOLUS RECEIVED AND CARRIED OUT. WILL CONTINUE TO MONITOR.
[2021-02-21] MEDS ORDERED: IV NS 0.9% 1,000 ML IV ONE ×2 (03:00→19:30)
[2021-02-21 05:36] LABS: CALCIUM, SERUM 7.5 mg/dL (8.5-10.1); CARBON DIOXIDE 25 mmol/L (21-32); CHLORIDE 110 mmol/L (98-107); CREATININE 0.5 mg/dL (0.6-1.3); GLUCOSE 98 mg/dL (74-106); HEMATOCRIT 28 % (33-45); HEMOGLOBIN 8.9 g/dL (11.5-14.8); LYMPHOCYTES # (AUTO) 0.3 K/uL (0.8-4.8); MEAN CORPUSCULAR HGB CONC 32 g/dl (31.0-36.0); MEAN CORPUSCULAR VOLUME 76 fL (82-100); MONOCYTES # (AUTO) 0.1 K/uL (0.1-1.30); MONOCYTES % (AUTO) 0.3 % (2.0-12.0); NEUTROPHILS # (AUTO) 27.6 K/uL (1.8-8.9); NEUTROPHILS % (AUTO) 98.7 % (43.0-81.0); POTASSIUM 3.1 mmol/L (3.5-5.1); RED BLOOD CELL COUNT(AUTO) 3.66 MIL/uL (4.0-5.2); SODIUM SERUM 142 mmol/L (136-145); UREA NITROGEN, BLOOD 26 mg/dL (7-18)
[2021-02-21] MEDS: BLOOD SUGAR DIAGNOSTIC 1 EACH STRIP IN SCH ×4 (05:44→23:54)
[2021-02-21] MEDS: METRONIDAZOLE 500 MG TABLET NG SCH ×3 (05:47→20:29)
[2021-02-21] MEDS: MEROPENEM 1 G in IV NS 0.9% 100 ML IV SCH ×2 (05:47→16:44)
[2021-02-21] MEDS: HYDROCORTISONE SOD SUCCINATE 100 MG/2 ML VIAL IV SCH ×3 (05:47→20:29)
--- NOTE | 2021-02-21 07:09 | NUR ---
RN NOTES RECEIVED PT ON BED INTUBATED, RESPONDS TO PAINFUL STIMULI, IVF AT 40 CC/HR RUNNING , ON TELE SR HR IN 90'S , R UPPER ARM PICC LINE SITE CLEAN ,DRY AND INTACT, MARQUEZ DRAINING TO GRAVITY, SR UP x3, CALL LIGHT WITHIN EASY REACH, BED LOCKED AND IN LOWEST POSITION, CONTINUE TO MONITOR .
[2021-02-21] MEDS: LEVOTHYROXINE INJ 100 MCG VIAL IV SCH (08:03)
[2021-02-21] MEDS: FERROUS SULFATE (325 MG) 325 MG/TAB TABLET PO SCH ×3 (08:03→16:44)
[2021-02-21] MEDS: PANTOPRAZOLE 40 MG VIAL IV SCH ×2 (08:03→20:29)
[2021-02-21] MEDS: DAKINS QUARTER STRENGTH (0.125%) 480 ML BOTTLE TOP SCH (08:05)
[2021-02-21] MEDS: PROSOURCE / PROSTAT (PYXIS) 30 ML UDC PO SCH ×2 (08:05→16:44)
[2021-02-21] MEDS: POTASSIUM CL. PREMIX PERIPHER. 50 ML IV SCH ×4 (08:12→11:41)
--- NOTE | 2021-02-21 08:21 | NUR ---
RT PATIENT REMAINS ORALLY INTUBATED ON [facility] VENT WITH ORDERED SETTINGS. FIO2 INCREASED TO 60%. ETT SECURE AND IN PROPER POSITION. AMBU BAG AT HOB. Addendum: 02/21/21 at 1619 by GAMA MEEHAN RT Amended: Links added.
[2021-02-21 08:27] LABS: ABG OXYGEN SATURATION 87.9 % (92.0-98.5); ABG PCO2 35.2 mmHg (35.0-45.0); ABG PH 7.399 (7.350-7.450); AaDO2 332.1 mmHg; MetHb 0.3 % (0.0-1.5); O2Hb 86.8 % (94.0-97.0); PEEP,BG 5 cm H2O; SITE, ABG Right Femoral; VT, ABG 350 mL
[2021-02-21 08:31] LABS: PLATELET COUNT (AUTO) 33 K/uL (150-450)
[2021-02-21 08:33] LABS: EOSINOPHILS % (MANUAL) 0 % (0-4); LYMPHOCYTES % (MANUAL) 0 % (16-48); MONOCYTES % (MANUAL) 0 % (0-11.0); NEUTROPHILS % (MANUAL) 100 (42-76)
--- NOTE | 2021-02-21 09:00 | NUR ---
RN NOTES DR GATES NOTIFIED REGARDING PLT=33.
[2021-02-21] MEDS: SOD FERRIC GLUC 125 MG in IV NS 0.9% 100 ML IV SCH (13:37)
[2021-02-21 14:08] LABS: BASOPHILS % (AUTO) 0.1 % (0.0-2.0); HEMATOCRIT 31 % (33-45); HEMOGLOBIN 9.6 g/dL (11.5-14.8); LYMPHOCYTES # (AUTO) 0.3 K/uL (0.8-4.8); LYMPHOCYTES % (AUTO) 0.9 % (20.0-44.0); MEAN CORPUSCULAR HGB CONC 31 g/dl (31.0-36.0); MEAN CORPUSCULAR VOLUME 76 fL (82-100); MONOCYTES # (AUTO) 0.1 K/uL (0.1-1.30); MONOCYTES % (AUTO) 0.3 % (2.0-12.0); NEUTROPHILS # (AUTO) 36.4 K/uL (1.8-8.9); NEUTROPHILS % (AUTO) 98.7 % (43.0-81.0); RED BLOOD CELL COUNT(AUTO) 4.06 MIL/uL (4.0-5.2)
[2021-02-21 14:18] LABS: WHITE BLOOD COUNT (AUTO) 36.9 K/uL (4.3-11.0)
[2021-02-21 14:19] LABS: PLATELET COUNT (AUTO) 30 K/uL (150-450)
[2021-02-21 14:43] LABS: BAND % (MANUAL) 10 % (0.0-5.0); MONOCYTES % (MANUAL) 3 % (0-11.0); NEUTROPHILS % (MANUAL) 87 (42-76)
[2021-02-21 14:45] LABS: LYMPHOCYTES % (MANUAL) 0 % (16-48)
--- NOTE | 2021-02-21 15:18 | NUR ---
RN NOTES DR GATES NOTIFIED REGARDING SECOND CBC RESULTS .
[2021-02-21] MEDS: IV 1/2NS 1000 ML 1,000 ML IV SCH (16:52)
--- NOTE | 2021-02-21 17:00 | NUR ---
RN NOTES LOW BP NOTED, DR MOLINA NOTIFIED , PT IS DNR ( NO PRESSORS ). NO NEW ORDER GIVEN , CONTINUE TO MONITOR.
--- NOTE | 2021-02-21 18:19 | NUR ---
RN NOTES SBP IN LOW 80'S , PT REMANINS DNR ( NO PRESSORS ). LARGE AMOUNT OF WEEPING NOTED FROM ABDOMINAL WOUND,MARQUEZ NOTED WITH SMALL AMOUNT OF URINE OUTPUT , IVF AT 40CC/HR RUNNING , IV SITES CLEAN ,DRY AND INTACT, SR UP x3, CALL LIGHT WITHIN EASY REACH, BED LOCKED AND IN LOWEST POSITION, WILL ENDORSE TO DRAWBENCH OPERATOR NURSE FOR CONTINUITY OF CARE .
--- NOTE | 2021-02-21 19:48 | NUR ---
RN OPENING NOTE-ICU REC'D PT IN BED, NO RESPONSE TO STIMULI, PULSES WEAK. PT STILL REMAINS INTUBATED ON VENT, AC 12 TIDAL VOL 350 FIO2 60% AND PEEP 5. O2 SAT 88% AND LOW BP. PT SR ON MONITOR, HEART RATE 88. ORDERS TO NOT START PRESSORS NOTED. PT IS DNR. PT HAS IVF 0.45% NS RUNNING AT 40ML/HR. PT NOTED TO BE WEEPING, GENERALIZED. WILL CONT TO MONITOR FOR CHANGE OF CONDITION, SAFETY MEASURES IN PLACE.
--- NOTE | 2021-02-21 20:04 | NUR ---
RN NOTE FIO2 INCREASED TO 100% WITH RT AT BEDSIDE, O2 SAT IS NOW 100%
[2021-02-21] MEDS: VANCOMYCIN 500 MG in IV D5W 100 ML IV SCH ×2 (21:34→23:54)
[2021-02-21 22:42] LABS: BILIRUBIN,DIRECT 0.6 mg/dL (0.0-0.2); BILIRUBIN,TOTAL 0.9 mg/dL (0.2-1.0); TOTAL PROTEIN, SERUM 3.7 g/dL (6.4-8.2)
[2021-02-21 22:50] LABS: ALBUMIN 1.5 g/dL (3.4-5.0)
--- NOTE | 2021-02-21 23:00 | NUR ---
RN NOTE WAITING FOR VANCO TROUGH RESULT BEFORE ADMIN
[2021-02-21] MEDS: INSULIN REGULAR, HUMAN 100 UNIT/ML 3 ML VIAL SQ PRN ×2 (23:54→23:55)
[2021-02-22] VITALS (28 sets, daily range): BP systolic 76–116; BP diastolic 36–55
--- NOTE | 2021-02-22 04:15 | NUR ---
WAS ADVISED BY BRAND SALES CONSULTANT ED TO NOT TAKE CX XRAY AT THIS TIME LATER IN AM...
[2021-02-22 05:18] LABS: CALCIUM, SERUM 7.9 mg/dL (8.5-10.1); CARBON DIOXIDE 22 mmol/L (21-32); CHLORIDE 109 mmol/L (98-107); CREATININE 0.9 mg/dL (0.6-1.3); GLUCOSE 127 mg/dL (74-106); POTASSIUM 4.3 mmol/L (3.5-5.1); SODIUM SERUM 140 mmol/L (136-145); UREA NITROGEN, BLOOD 36 mg/dL (7-18)
[2021-02-22 05:19] LABS: BASOPHILS % (AUTO) 0.1 % (0.0-2.0); HEMATOCRIT 29 % (33-45); HEMOGLOBIN 9.2 g/dL (11.5-14.8); LYMPHOCYTES # (AUTO) 0.3 K/uL (0.8-4.8); LYMPHOCYTES % (AUTO) 0.9 % (20.0-44.0); MEAN CORPUSCULAR HGB CONC 32 g/dl (31.0-36.0); MEAN CORPUSCULAR VOLUME 77 fL (82-100); MONOCYTES # (AUTO) 0.1 K/uL (0.1-1.30); MONOCYTES % (AUTO) 0.3 % (2.0-12.0); NEUTROPHILS # (AUTO) 34.1 K/uL (1.8-8.9); NEUTROPHILS % (AUTO) 98.7 % (43.0-81.0); RED BLOOD CELL COUNT(AUTO) 3.77 MIL/uL (4.0-5.2)
[2021-02-22] MEDS: HYDROCORTISONE SOD SUCCINATE 100 MG/2 ML VIAL IV SCH ×2 (05:23→12:43)
[2021-02-22] MEDS: MEROPENEM 1 G in IV NS 0.9% 100 ML IV SCH ×2 (05:23→17:02)
[2021-02-22] MEDS: METRONIDAZOLE 500 MG TABLET NG SCH ×2 (05:23→12:43)
[2021-02-22] MEDS: BLOOD SUGAR DIAGNOSTIC 1 EACH STRIP IN SCH ×3 (05:24→17:44)
[2021-02-22] MEDS: INSULIN REGULAR, HUMAN 100 UNIT/ML 3 ML VIAL SQ PRN (05:58)
[2021-02-22 06:10] LABS: PLATELET COUNT (AUTO) 15 K/uL (150-450); WHITE BLOOD COUNT (AUTO) 34.6 K/uL (4.3-11.0)
--- NOTE | 2021-02-22 07:10 | NUR ---
RN CLOSING NO CHANGE IN PT CONDITION, PT SUCTIONED, MODERATE AMOUNT THICK MOISE SECRETIONS NOTED. LITTLE TO NO URINARY OUTPUT. PT STILL HAS IVF RUNNING AT THIS TIME. CRITICAL RESULT OF PLT OF 15 CHANGE NOTED FROM YESTERDAY. NO S/S OF BLEEDING NOTED. WBC 34.8 TRENDING DOWN FROM YESTERDAY, PT ON ABX. TURN AND REPOSITION PT TOLERATED. SAFETY MEASURES IN PLACE. ENDORSED TO DAY SHIFT RN FOR CONTINUATION OF CARE
--- NOTE | 2021-02-22 07:34 | NUR ---
RN NOTE PATIENT IS IN BED WITH HOB FLAT. PATIENT IS ON VENTILATOR WITH NO SIGNS OF LABORED BREATHING. PATIENT IS LETHARGIC AOX0. OGTUBE IS IN PLACE. SHERLEY PICC AND LFA 20 ARE PATENT AND INTACT. BED IS LOCKED IN THE LOWEST POSITION, 3 GUARD RAILS RAISED, CALL NEVES WITHIN REACH, AND ALL HOSPITAL SAFETY PRECAUTIONS ARE IN PLACE. WILL CONTINUE TO MONITOR THROUGHOUT SHIFT.
--- NOTE | 2021-02-22 07:37 | NUR ---
WOUND CARE FOLLOW UP: PT IS UNSTABLE TO BE TURNED FOR SKIN ASSESSMENT OF SACRAL DEEP TISSUE INJURY, PER NURSING STAFF. PT IS FOLLOWED BY SURGICAL TEAM FOR WOUNDS. ALL SKIN PROTECTION MEASURES IN PLACE. PT IS ON FIRST STEP [facility]. IN AGREEMENT WITH PLAN OF CARE.
[2021-02-22] MEDS: PROSOURCE / PROSTAT (PYXIS) 30 ML UDC PO SCH ×3 (08:23→17:02)
[2021-02-22] MEDS: FERROUS SULFATE (325 MG) 325 MG/TAB TABLET PO SCH ×2 (08:23→08:32)
[2021-02-22] MEDS: DAKINS QUARTER STRENGTH (0.125%) 480 ML BOTTLE TOP SCH (08:23)
[2021-02-22] MEDS ORDERED: ALBUMIN 25% 25 GM in PREMIX 1 EA IV ONE (08:30)
[2021-02-22] MEDS: PANTOPRAZOLE 40 MG VIAL IV SCH (08:32)
[2021-02-22 08:47] LABS: BAND % (MANUAL) 8 % (0.0-5.0); LYMPHOCYTES % (MANUAL) 2 % (16-48); MONOCYTES % (MANUAL) 2 % (0-11.0); NEUTROPHILS % (MANUAL) 88 (42-76)
[2021-02-22 10:17] LABS: D-DIMER 4.46 mg/L(FEU (0.17-0.50)
--- NOTE | 2021-02-22 11:47 | NUR ---
RN NOTE BLOOD SUGAR OF 112. NO INSULIN COVERAGE NEEDED.
[2021-02-22] MEDS ORDERED: DAPTOMYCIN 500 MG in IV NS 0.9% 50 ML IV SCH (12:00)
[2021-02-22] MEDS: SOD FERRIC GLUC 125 MG in IV NS 0.9% 100 ML IV SCH (14:09)
--- NOTE | 2021-02-22 17:44 | NUR ---
RN NOTE BLOOD SUGAR OF 129. NO INSULIN COVERAGE NEEDED.
[2021-02-22] MEDS: IV 1/2NS 1000 ML 1,000 ML IV SCH (17:51)
[2021-02-22] MEDS ORDERED: MORPHINE SULFATE INJ 10 MG/ML DISP.SYRIN IV ONE (18:30)
--- NOTE | 2021-02-22 18:30 | NUR ---
RN NOTE COMFORT MEASURES IN PLACE. WILL ENDORSE TO WELT SEWER RN.
--- NOTE | 2021-02-22 18:58 | NUR ---
RN NOTE PT ON COMFORT CARE, TERMINALLY EXTUBATED. FOUND PT ASYSTOLIC, APNEIC, AREFLEXIVE. PRONOUNCED AT 1858. DR MALDONADO NOTIFIED BY PHONE. WILL LEAVE MESSAGE WITH CONSERVATOR BY PHONE.
--- NOTE | 2021-02-22 18:58 | NUR ---
ICU/RN: TIME OF CALLED BY GEOGRAPHIC INFORMATION SYSTEMS ANALYST GIL. RECORD OF FILLED OUT. ALL PARITIES NOTIFIED.
[2021-02-22] MEDS ORDERED: MORPHINE SULFATE INJ 4 MG/ML DISP.SYRIN IV ONE (19:00)
== END 2021-02-22 18:58 | DRG 853 ==
LOC: ER 19:53 → ICU 22:23 → MEDSG1 02-15 18:08 → ICU 02-17 17:48
PROVIDERS: ADMIT Nurse Practitioner Acute Care; ATTEND Internal Medicine
PROC: 30233N1 Transfusion of Nonautologous Red Blood Cells into Peripheral Vein, Percutaneous Approach (ICD-10-PCS; 2021-02-09)
PROC: 0JB80ZZ Excision of Abdomen Subcutaneous Tissue and Fascia, Open Approach (ICD-10-PCS; principal; 2021-02-10)
PROC: 0BH18EZ Insertion of Endotracheal Airway into Trachea, Via Natural or Artificial Opening Endoscopic (ICD-10-PCS; 2021-02-10)
PROC: 5A1955Z Respiratory Ventilation, Greater than 96 Consecutive Hours (ICD-10-PCS; 2021-02-10)
PROC: 02HV33Z Insertion of Infusion Device into Superior Vena Cava, Percutaneous Approach (ICD-10-PCS; 2021-02-13)
PROC: B548ZZA Ultrasonography of Superior Vena Cava, Guidance (ICD-10-PCS; 2021-02-13)
PROC: 5A1955Z Respiratory Ventilation, Greater than 96 Consecutive Hours (ICD-10-PCS; 2021-02-17)
PROC: 0BH18EZ Insertion of Endotracheal Airway into Trachea, Via Natural or Artificial Opening Endoscopic (ICD-10-PCS; 2021-02-17)
PROC: 5A2204Z Restoration of Cardiac Rhythm, Single (ICD-10-PCS; 2021-02-17)
DX: A41.01 Sepsis due to Methicillin susceptible Staphylococcus aureus (principal); J12.9 Viral pneumonia, unspecified; E43 Unspecified severe protein-calorie malnutrition; R65.21 Severe sepsis with septic shock; N17.0 Acute kidney failure with tubular necrosis; I21.A1 Myocardial infarction type 2; K35.33 Acute appendicitis with perforation, localized peritonitis, and gangrene, with abscess; G92.8 Other toxic encephalopathy; J96.01 Acute respiratory failure with hypoxia; E87.0 Hyperosmolality and hypernatremia; L02.211 Cutaneous abscess of abdominal wall; Z68.1 Body mass index [BMI] 19.9 or less, adult; D68.59 Other primary thrombophilia; L03.311 Cellulitis of abdominal wall; E87.2 Acidosis; J98.11 Atelectasis; R64 Cachexia; J90 Pleural effusion, not elsewhere classified; E11.52 Type 2 diabetes mellitus with diabetic peripheral angiopathy with gangrene; K56.49 Other impaction of intestine; Z99.11 Dependence on respirator [ventilator] status; C18.0 Malignant neoplasm of cecum; Z16.11 Resistance to penicillins; K29.70 Gastritis, unspecified, without bleeding; E86.0 Dehydration; E83.51 Hypocalcemia; E03.9 Hypothyroidism, unspecified; Z20.822 Contact with and (suspected) exposure to COVID-19; F03.90 Unspecified dementia, unspecified severity, without behavioral disturbance, psychotic disturbance, mood disturbance, and anxiety; F41.9 Anxiety disorder, unspecified; F20.9 Schizophrenia, unspecified; Z79.899 Other long term (current) drug therapy; I12.9 Hypertensive chronic kidney disease with stage 1 through stage 4 chronic kidney disease, or unspecified chronic kidney disease; N18.9 Chronic kidney disease, unspecified; Z51.5 Encounter for palliative care; Z66 Do not resuscitate; D50.9 Iron deficiency anemia, unspecified; D69.6 Thrombocytopenia, unspecified; Z91.19 Patient's noncompliance with other medical treatment and regimen; E86.1 Hypovolemia; E86.9 Volume depletion, unspecified; K56.41 Fecal impaction; K76.0 Fatty (change of) liver, not elsewhere classified; K82.9 Disease of gallbladder, unspecified; I70.0 Atherosclerosis of aorta; I25.2 Old myocardial infarction; E11.22 Type 2 diabetes mellitus with diabetic chronic kidney disease; E83.9 Disorder of mineral metabolism, unspecified; Y95 Nosocomial condition; E87.70 Fluid overload, unspecified; Z73.6 Limitation of activities due to disability; L89.156 Pressure-induced deep tissue damage of sacral region; Z86.718 Personal history of other venous thrombosis and embolism; F09 Unspecified mental disorder due to known physiological condition; I49.9 Cardiac arrhythmia, unspecified; M89.9 Disorder of bone, unspecified; E87.6 Hypokalemia; K21.00 Gastro-esophageal reflux disease with esophagitis, without bleeding
CPT/HCPCS: 31720; 36415; 36569; 36600; 70450-TC; 71045-TC; 80048-TC; 80053-TC; 80076-TC; 80202-TC; 81001; 82140-TC; 82533; 82728-TC; 82803-TC; 82962-TC; 83540-TC; 83605-TC; 83735-TC; 84100-TC; 84439-TC; 84443-TC; 84481; 84484-TC; 85025-TC; 85027-TC; 85378-TC; 85385-TC; 85730-TC; 86850-TC; 87040-TC; 87070-TC; 87081-TC; 87086-TC; 87186-TC; 88304-TC; 92526; 92611-TC; 92950-TC; 93971-TC; 94002-TC; 94003-TC; 94640-TC; 94760-TC; 94799-TC; A4216; A4217; A6253; A6403; C9113; C9803; G0378; J0171; J0330; J0690; J0878; J1450; J1720; J1815; J1940; J2060; J2185; J2250; J2270; J2370; J2405; J2704; J2765; J2916; J3010; J3370; J3475; J3480; J3490; J7030; J7040; J7042; J7050; J7060; P9016; P9047; U0003